=== PATIENT | female | born 1970 | race Caucasian/White ===

== ENCOUNTER 2016-04-05 02:17 | Emergency (ER) | payer OTHER ==
[~2016-04-05] VITALS: Ht 157.5 cm; Wt 119.1 kg
[~2016-04-05 02:17] MED LIST: ASPI81TA3 PO; BUTA1CAP39 PO; DOXE100C4 PO; DULO30CA PO; EPIN0.3P17 IJ; LAMO200T2 PO; LIDOCAINE CREAM TOP; LISI-567 PO; LORA10CA PO; MAGN400T4 PO; METF500T4 PO; METH-313 PO; ONDA8TAB7 PO; PANT40TA2 PO; PRAM1TAB5 PO; PREG100C PO; PROP160C2 PO; PROZASIN PO; SELE200T11 PO; SIMV20TA4 PO; ZONI100C6 PO
[2016-04-05 02:35] VITALS: BP 157/94; PULSE 79; RESP 22; O2SAT 99
--- NOTE | 2016-04-05 03:06 | ED.REPORT ---
HPI-Headache Date of Service Apr 05, 2016 ED Provider: Praneeth Last MD The patient is a 45 year old female with history of multiple ED visits for migraines who presents to the ED complaining of a migraine with nausea/vomiting for the last two days. She has taken ondansetron to little relief. She denies any other symptoms at this time. Nursing Notes Stated Complaint: SEVERE MIGRAIN,N,V Chief Complaint: Headache Nursing Notes Reviewed: Yes Allergies: Coded Allergies: Contrast Media (Verified Allergy, Unknown, 04/05/16) Sulfa (Sulfonamide Antibiotics) (Verified Allergy, Unknown, 04/05/16) dihydroergotamine mesylate (Verified Allergy, Unknown, 04/05/16) ether (Verified Allergy, Unknown, 04/05/16) iodine (Verified Allergy, Unknown, 04/05/16) morphine (Verified Allergy, Unknown, 04/05/16) prednisolone (Verified Allergy, Unknown, Causes Severe depression, 04/05/16) Scheduled ([prozasin]) 1 MG PO DAILY Aspirin Chew (Aspirin Chew) 81 Mg Chew 81 MG PO DAILY Doxepin (Doxepin) 100 Mg Capsule 50 MG PO BID Duloxetine (Cymbalta) 30 Mg Capsule.dr 90 MG PO DAILY Lamotrigine (Lamotrigine) 200 Mg Tablet 100 MG PO TID Lisinopril (Lisinopril) 20 Mg Tablet 20 MG PO DAILY Loratadine (Claritin) 10 Mg Capsule 10 MG PO DAILY Magnesium Oxide (Magnesium Oxide) 400 Mg Tablet 300 MG PO BID Metformin (Metformin) 500 Mg Tablet 500 MG PO BID WITH EVENING MEAL Methocarbamol (Robaxin-750) 750 Mg Tablet 750 MG PO TID Pantoprazole DR (Protonix) 40 Mg Tablet.dr 40 MG PO BID Pregabalin (Lyrica) 100 Mg Capsule 1 TAB PO TID Propranolol ER (Propranolol ER) 160 Mg Cap.sa.24h 160 MG PO BID Simvastatin (Simvastatin) 20 Mg Tablet 20 MG PO HS Zonisamide (Zonisamide) 100 Mg Capsule 50 MG PO DAILY Scheduled PRN ([Lidocaine Cream]) TOP PRN For Pain APPLY TO FEET Butalbital/Acetamin/Caff 50-300-40 mg (Fioricet 50-300-40 mg) 1 Each Capsule 1 CAPSULE PO Q4H PRN PRN Headache Epinephrine (Epinephrine) 0.3 Mg/0.3 Ml Auto.injct 0.3 MG IJ PRN For Anaphyllaxis Ondansetron ODT (Zofran ODT) 8 Mg Tablet 8 MG PO Q4H PRN PRN For Nausea Pramipexole Dihydrochloride (Pramipexole Dihydrochloride) 1 Mg Tablet 0.75 MG PO DAILY PRN PRN Restless leg Miscellaneous Medications Selenomethionine (Selenium) 200 Mcg Tablet 200 MCG PO General Time Seen by MD: 02:48 Chief Complaint Migraine headache Hx Obtained From: Patient Arrived By: Walk-in Sudden in Onset?: No Onset Occurred: Yesterday Symptom Duration: Since onset Location: : Generalized Severity: Current: Moderate Severity: Maximum: Moderate Recent Healthcare: No recent doctor visit, No recent hospitalization Similar Sx Previous: Yes Past Medical History Past Medical History Notes: Frequent ER visits for headache - Recent ED visits to [facility] for Migraine include 01/02, 01/09, 02/04, 02/18, 02/23, and 02/26, 03/07, 03/12, 03/16 and 03/20/2016 Dr. Meyers, Neurology [facility], Psychiatric prescriber Past Medical History GERD Chronic depression Chronic migraines opioid Dependency and withdrawal headaches asthma Fibromyalgia Neuropathy 85% deaf Blind in right eye Morbid Obesity Spinal stenosis Reports: Asthma, Diabetes mellitus, Gastritis, Hypertension, Peptic ulcer disease Reports: Obesity Past Surgical History Cholecystectomy Appendectomy Hysterectomy Laparoscopy Reports: Cholecystectomy Family History Reviewed, not relevant Smoking History Never Smoker Social History She reports recent graduation with Masters Counseling degree and successfully quite smoking. She has 4 grandchildren. Lives with son and his and their daughter Alcohol Use: Denies alcohol use Drug Use: Denies drug use Other Social History: Frequent ED visitor, , Local resident Occupation Student Ambulatory Status Independent Review of Systems Constitutional: Denies: Chills, Fever Eyes: Denies: Blurred bilateral, Diplopia GI: Reports: Nausea, Vomiting Neurologic: Reports: Headache, Denies: Change LOC, Lightheaded, Numbness, Seizure Complete sys rev & neg: except as marked. Physical Exam Initial Vital Signs Vital Signs (First) Date Time Temp Pulse Resp B/P Pulse Ox O2 Delivery O2 Flow Rate FiO2 04/05/16 02:35 36.5 79 22 157/94 99 Room Air Initial VS: Reviewed, Vital signs abnormal ENT: Mucous membranes moist, Conjunctiva normal, No scleral icterus Respiratory: Breath sounds normal, Clear to auscultation, No respiratory distress Cardiovascular: Regular rate & rhythm, Heart sounds normal, Intact distal pulses Abdomen / GI: Soft, Non-tender, No guarding, No rebound, No distention Back: No CVA tenderness Extremities: Vascular intact, Neuro intact, No swelling, No tenderness Skin: Warm, Dry, No cyanosis Psychiatric: Mood/affect normal, Behavior normal, Normal thought content General/Constitutional: Awake, Alert, No acute distress Head / Eyes: Atraumatic, Normocephalic, PERRL, EOMI Neck: Atraumatic, Supple, Full range of motion, No adenopathy Neurologic: Oriented X3, Speech NL, No motor deficits, No sensory deficits, CN II - XII intact Re-Eval/Medical Decision Med Decision/Clinical Course 45-year-old female with a typical recurrence of her migraine. She was given the usual migraine medication including normal saline, Toradol, ondansetron, Benadryl, Haldol, and dexamethasone with good relief of her headache. There are no bothersome findings on physical exam in no historical indication that an alternate more serious diagnosis may be happening. Source of Hx: Old records Re-Evaluation/Progress : Time of Eval: 05:09 Re-Evaluation/Progress Note: Rechecked the patient who reports that she is feeling better. Discussed plan for discharge. Follow-up instructions and RTER warnings given. The patient understands and agrees to the plan. All questions addressed. Counseled Regarding: Diagnosis, Need for follow-up, When/why to return to ED Discharge & Departure Impression: Primary Impression: Migraine headache Migraine type: without aura Status migrainosus presence: without status migrainosus Intractability: not intractable Qualified Code: G43.009 - Migraine without aura, not intractable, without status migrainosus Disposition: Home Discharge Condition All VS Reviewed: Yes Condition: Stable Patient Instructions: Migraine Headache (ED) Additional Instructions: You received IV saline hydration, IV ondansetron, IV Toradol, IV Benadryl, and IV Haldol. Home to sleep. Do not drive after this medication. Follow-up with your regular doctor as needed. Referrals: Philip Henriquez MD (PCP) Scribe Attestation Portions of this note were transcribed by Abhijit Escobedo. I, Dr. Last, personally performed the history, physical exam and medical decision-making; I reviewed and confirmed the accuracy of the information in the transcribed note. Signed by: Deloris Herrera, 04/05/16 05:10. copies to: Philip Henriquez MD, Howard L MD Apr 05, 2016 03:06 ABHIJIT ESCOBEDO Apr 05, 2016 03:15
[2016-04-05] MEDS ORDERED: 0.9% Sodium Chloride 1,000 ML IV ONE (03:13)
[2016-04-05] MEDS ORDERED: Haloperidol 5 mg/mL Inj IVPUSH ONE (03:15)
[2016-04-05] MEDS ORDERED: Ondansetron 2 mg/mL 2 mL Inj IVPUSH ONE (03:15)
[2016-04-05] MEDS ORDERED: Dexamethasone 10 mg/mL Inj IVPUSH ONE (03:15)
[2016-04-05] MEDS ORDERED: Ketorolac 15 mg/mL Inj IVPUSH ONE (03:15)
[2016-05-19] MEDS ORDERED: ZONI100C6 PO (16:02)
[2016-05-19] MEDS ORDERED: ALBU8.5H2 INHALATION (16:04)
[2016-05-19] MEDS ORDERED: RIZA5TAB34 PO (16:04)
[2016-05-19] MEDS ORDERED: IBUP-1827 PO (16:04)
[2016-05-19] MEDS ORDERED: CLON0.2T PO (16:04)
[2016-05-19] MEDS ORDERED: KETO60SY IM (16:04)
[2016-05-19] MEDS ORDERED: METH4TAB12 PO (16:05)
== END 2016-04-05 05:13 | disposition home or self-care (01) ==
LOC: SED 02:17
DX: G43.009 Migraine without aura, not intractable, without status migrainosus (principal); Z79.82 Long term (current) use of aspirin; K21.9 Gastro-esophageal reflux disease without esophagitis; J45.909 Unspecified asthma, uncomplicated; E11.9 Type 2 diabetes mellitus without complications; I10 Essential (primary) hypertension; Z88.2 Allergy status to sulfonamides; Z88.5 Allergy status to narcotic agent; Z88.8 Allergy status to other drugs, medicaments and biological substances
CPT/HCPCS: 96361; 96374; 96375; 99284; J1100; J1200; J1630; J1885; J2405; J7030

== ENCOUNTER 2016-04-14 05:44 | Emergency (ER) | payer OTHER ==
[~2016-04-14] VITALS: Ht 157.5 cm; Wt 119.1 kg
[2016-04-14 05:45] VITALS: BP 142/91; PULSE 78; RESP 16; O2SAT 98
--- NOTE | 2016-04-14 06:05 | ED.REPORT ---
HPI-Headache Date of Service Apr 14, 2016 ED Provider: Jono Minor MD 45 year old diabetic female with a history of migraines, opioid dependency and withdrawal headaches, HTN, and fibromyalgia presents to the ER complaining of migraine headache onset yesterday. She reports that it "feels as though her eyes are being gouged out". Associated symptoms include nausea, vomiting, photophobia, and insomnia secondary to symptoms. Symptoms are consistent with typical migraines. She has treated symptoms with butalbital, IM Toradol yesterday, Tylenol, ibuprofen, with no relief. Patient denies any recent trauma or infection. Other medications propranolol, lisinopril, simvastatin, metformin. She is followed by Dr. Hedrick, Neurology, for her migraines. Patient is well known to us here in the department. Nursing Notes Stated Complaint: MIGRAINE,NAUSEA,VOMITING Chief Complaint: Neuro Symptoms/ Deficits Nursing Notes Reviewed: Yes ([employer], meds not reconciled) Allergies: Coded Allergies: Contrast Media (Verified Allergy, Unknown, 04/05/16) Sulfa (Sulfonamide Antibiotics) (Verified Allergy, Unknown, 04/05/16) dihydroergotamine mesylate (Verified Allergy, Unknown, 04/05/16) ether (Verified Allergy, Unknown, 04/05/16) iodine (Verified Allergy, Unknown, 04/05/16) morphine (Verified Allergy, Unknown, 04/05/16) prednisolone (Verified Allergy, Unknown, Causes Severe depression, 04/05/16) Scheduled ([prozasin]) 1 MG PO DAILY Aspirin Chew (Aspirin Chew) 81 Mg Chew 81 MG PO DAILY Doxepin (Doxepin) 100 Mg Capsule 50 MG PO BID Duloxetine (Cymbalta) 30 Mg Capsule.dr 90 MG PO DAILY Lamotrigine (Lamotrigine) 200 Mg Tablet 100 MG PO TID Lisinopril (Lisinopril) 20 Mg Tablet 20 MG PO DAILY Loratadine (Claritin) 10 Mg Capsule 10 MG PO DAILY Magnesium Oxide (Magnesium Oxide) 400 Mg Tablet 300 MG PO BID Metformin (Metformin) 500 Mg Tablet 500 MG PO BID WITH EVENING MEAL Methocarbamol (Robaxin-750) 750 Mg Tablet 750 MG PO TID Pantoprazole DR (Protonix) 40 Mg Tablet.dr 40 MG PO BID Pregabalin (Lyrica) 100 Mg Capsule 1 TAB PO TID Propranolol ER (Propranolol ER) 160 Mg Cap.sa.24h 160 MG PO BID Simvastatin (Simvastatin) 20 Mg Tablet 20 MG PO HS Zonisamide (Zonisamide) 100 Mg Capsule 50 MG PO DAILY Scheduled PRN ([Lidocaine Cream]) TOP PRN For Pain APPLY TO FEET Butalbital/Acetamin/Caff 50-300-40 mg (Fioricet 50-300-40 mg) 1 Each Capsule 1 CAPSULE PO Q4H PRN PRN Headache Epinephrine (Epinephrine) 0.3 Mg/0.3 Ml Auto.injct 0.3 MG IJ PRN For Anaphyllaxis Ondansetron ODT (Zofran ODT) 8 Mg Tablet 8 MG PO Q4H PRN PRN For Nausea Pramipexole Dihydrochloride (Pramipexole Dihydrochloride) 1 Mg Tablet 0.75 MG PO DAILY PRN PRN Restless leg Miscellaneous Medications Selenomethionine (Selenium) 200 Mcg Tablet 200 MCG PO General Time Seen by MD: 05:56 Chief Complaint Migraine headache Hx Obtained From: Patient Arrived By: Walk-in Sudden in Onset?: No Onset Occurred: Yesterday Symptom Duration: Since onset Location: : Frontal bilateral Quality: Painful Severity: Current: Moderate Severity: Maximum: Moderate Associated with: Reports: Nausea, Photophobia, Vomiting Related History: Reports: Headache, migraine hx Recent Healthcare: Recent doctor visit Similar Sx Previous: Yes Past Medical History Past Medical History Notes: Frequent ER visits for headache - Recent ED visits to [facility] for Migraine include 01/02, 01/09, 02/04, 02/18, 02/23, and 02/26, 03/07, 03/12, 03/16 and 03/20/2016, 03/25/16, 04/05/16, 04/14/16 Dr. Hedrick, Neurology [facility], Psychiatric prescriber Past Medical History GERD Chronic depression Chronic migraines opioid Dependency and withdrawal headaches asthma Fibromyalgia Neuropathy 85% deaf Blind in right eye Morbid Obesity Spinal stenosis Reports: Asthma, Diabetes mellitus, Gastritis, Hypertension, Peptic ulcer disease Reports: Obesity Past Surgical History Cholecystectomy Appendectomy Hysterectomy Laparoscopy Reports: Cholecystectomy Family History Reviewed, not relevant Smoking History Never Smoker Social History She reports recent graduation with Masters Counseling degree and successfully quite smoking. She has 4 grandchildren. Lives with son and his and their daughter Alcohol Use: Denies alcohol use Drug Use: Denies drug use Other Social History: Frequent ED visitor, , Local resident Occupation Student Ambulatory Status Independent Review of Systems Constitutional: Denies: Chills, Fever Eyes: Reports: Photophobia GI: Reports: Nausea, Vomiting, Denies: Abdominal pain Musculoskeletal: Denies: Back pain, Extremity pain, Lumbar pain, Neck pain Neurologic: Reports: Headache, Denies: Change LOC, Numbness, Syncope Complete sys rev & neg: except as marked. Physical Exam Initial Vital Signs Vital Signs (First) Date Time Temp Pulse Resp B/P Pulse Ox O2 Delivery O2 Flow Rate FiO2 04/14/16 05:45 36.7 78 16 142/91 98 Room Air Initial VS: Reviewed, Vital signs normal ENT: Mucous membranes moist, Conjunctiva normal, No scleral icterus Respiratory: Breath sounds normal, Clear to auscultation, No respiratory distress Cardiovascular: Regular rate & rhythm, Heart sounds normal, Intact distal pulses Abdomen / GI: Soft, Non-tender, No guarding, No rebound, No distention Extremities: Vascular intact, Neuro intact, No swelling, No tenderness Skin: Warm, Dry, No cyanosis General/Constitutional: Awake, Alert, Well developed Fatigued. Head / Eyes: Atraumatic, Normocephalic Sitting in darkened room. Neck: Supple, No meningismus, Full range of motion, No swelling, Non-tender, No masses Neurologic: Oriented X3, Speech NL, No motor deficits, No sensory deficits, CN II - XII intact, Cerebellar NL Interpretation & Diagnostics Lab Results Interpretation Test 04/14/16 06:15 Hold Purple Top Tube Received (Received) Hold Blue Top Tube Received (Received) Hold Bancroft Top Tube Received (Received) Re-Eval/Medical Decision Med Decision/Clinical Course This is a 45-year-old female with chronic, recurrent migraines followed by Dr. hedrick who has a history of a multitude of ED visits who presents complaining of her "usual migraine". She reports no atypical features, she is seen struck in recent weeks and underwent a Botox injection but indicates that sometimes take several weeks for that to start improving her symptoms. A home Toradol yesterday, butalbital, but remains symptomatic. She reports there are no atypical features, no recent trauma, no recent fevers or infections, no rash, no new neurologic symptoms. On exam she is obese, but in no extremist. She has no acute neurologic findings. Overall she has no red flags indicated altered process or need for acute neuro imaging, laboratory testing, or lumbar puncture. The patient was treated with her migraine cocktail of Toradol, Benadryl, Haldol , ondansetron, and IV fluids-with improvement and resolution, and the patient was discharged in good condition Source of Hx: Old records Differential Diagnosis: Positive: Headache, Headache, migraine, Negative: Carbon monoxide toxicity, Carotid artery dissection, Headache, post LP, Hemorrhage, cerebellar, Hemorrhage, epidural, Hemorrhage, intracerebral , Hemorrhage, subarachnoid, Hemorrhage, subdural, Intracranial abscess, Meningitis, Preeclampsia Counseled Regarding: Diagnosis, Lab results, Need for follow-up, When/why to return to ED Discharge & Departure Impression: Primary Impression: Migraine headache Migraine type: unspecified Status migrainosus presence: without status migrainosus Intractability: not intractable Qualified Code: G43.909 - Migraine, unspecified, not intractable, without status migrainosus Disposition: Home Discharge Condition All VS Reviewed: Yes Condition: Stable Patient Instructions: Migraine Headache (DC) Additional Instructions: 1. Rest 2. Continue your regular medications 3. Follow up with Dr. Hedrick Referrals: Philip Henriquez MD (PCP) Scribe Attestation Portions of this note were transcribed by Hugo Maurice. I, Dr. Minor, personally performed the history, physical exam and medical decision-making; I reviewed and confirmed the accuracy of the information in the transcribed note. Signed by: Deloris Velez. 04/14/2016, 09:20 copies to: Philip Henriquez MD, Matthew F MD Apr 14, 2016 06:04 HUGO MAURICE Apr 14, 2016 06:15
[2016-04-14] MEDS ORDERED: Ondansetron 2 mg/mL 2 mL Inj IVPUSH ONE (06:15)
[2016-04-14] MEDS ORDERED: 0.9% Sodium Chloride 500 ML IV ONE (06:15)
[2016-04-14] MEDS ORDERED: Haloperidol 5 mg/mL Inj IVPUSH ONE (06:15)
[2016-04-14] MEDS ORDERED: Dexamethasone Inj 10 MG in 0.9% Sodium Chloride-Pha MIX 50 ML IV ONE (06:15)
[2016-04-14 09:00] VITALS: BP 149/79; PULSE 74; RESP 16; O2SAT 97
[2016-05-19] MEDS ORDERED: ZONI100C6 PO (16:02)
[2016-05-19] MEDS ORDERED: ALBU8.5H2 INHALATION (16:04)
[2016-05-19] MEDS ORDERED: CLON0.2T PO (16:04)
[2016-05-19] MEDS ORDERED: IBUP-1827 PO (16:04)
[2016-05-19] MEDS ORDERED: RIZA5TAB34 PO (16:04)
[2016-05-19] MEDS ORDERED: KETO60SY IM (16:04)
[2016-05-19] MEDS ORDERED: METH4TAB12 PO (16:05)
== END 2016-04-14 08:53 | disposition home or self-care (01) ==
LOC: SED 05:44
DX: G43.709 Chronic migraine without aura, not intractable, without status migrainosus (principal); F11.23 Opioid dependence with withdrawal; I10 Essential (primary) hypertension; M79.7 Fibromyalgia; K21.9 Gastro-esophageal reflux disease without esophagitis; J45.909 Unspecified asthma, uncomplicated; H91.90 Unspecified hearing loss, unspecified ear; H54.41 Blindness, right eye, normal vision left eye; E66.01 Morbid (severe) obesity due to excess calories; E11.9 Type 2 diabetes mellitus without complications; Z68.42 Body mass index [BMI] 45.0-49.9, adult; Z87.11 Personal history of peptic ulcer disease; Z87.19 Personal history of other diseases of the digestive system; Z79.82 Long term (current) use of aspirin; Z79.84 Long term (current) use of oral hypoglycemic drugs; Z91.041 Radiographic dye allergy status; Z88.2 Allergy status to sulfonamides; Z88.8 Allergy status to other drugs, medicaments and biological substances; Z88.5 Allergy status to narcotic agent
CPT/HCPCS: 96361; 96374; 96375; 99284; G0463; J1100; J1200; J1630; J2405; J7040

== ENCOUNTER 2016-04-27 00:36 | Emergency (ER) | payer OTHER ==
[~2016-04-27] VITALS: Ht 157.5 cm; Wt 122.7 kg
[2016-04-27 00:56] VITALS: BP 151/104; PULSE 87; RESP 16; O2SAT 97
--- NOTE | 2016-04-27 01:11 | ED.REPORT ---
HPI-General Illness Date of Service Apr 27, 2016 ED Provider: Logan Beck MD Patient is a 45 year old female with a history of migraine headaches who is well known to the ED presents complaining of a severe migraine headache that began 2 days ago. She reports associated nausea and vomiting. She has used all of her migraine medications to the maximum doses. Patient states that her current headache is the same in character as her usual migraines. Patient also currently has an upper respiratory infection, with a cough and wheezing. Patient used a nebulizer treatment at home. Nursing Notes Stated Complaint: MIGRAINE,NAUSEA, AND VOMITING Chief Complaint: General Complaint Nursing Notes Reviewed: Yes Allergies: Coded Allergies: Contrast Media (Verified Allergy, Unknown, 04/27/16) Sulfa (Sulfonamide Antibiotics) (Verified Allergy, Unknown, 04/27/16) dihydroergotamine mesylate (Verified Allergy, Unknown, 04/27/16) ether (Verified Allergy, Unknown, 04/27/16) iodine (Verified Allergy, Unknown, 04/27/16) morphine (Verified Allergy, Unknown, 04/27/16) prednisolone (Verified Allergy, Unknown, Causes Severe depression, 04/27/16 ) Scheduled ([prozasin]) 1 MG PO DAILY Aspirin Chew (Aspirin Chew) 81 Mg Chew 81 MG PO DAILY Doxepin (Doxepin) 100 Mg Capsule 50 MG PO BID Duloxetine (Cymbalta) 30 Mg Capsule.dr 90 MG PO DAILY Lamotrigine (Lamotrigine) 200 Mg Tablet 100 MG PO TID Lisinopril (Lisinopril) 20 Mg Tablet 20 MG PO DAILY Loratadine (Claritin) 10 Mg Capsule 10 MG PO DAILY Magnesium Oxide (Magnesium Oxide) 400 Mg Tablet 300 MG PO BID Metformin (Metformin) 500 Mg Tablet 500 MG PO BID WITH EVENING MEAL Methocarbamol (Robaxin-750) 750 Mg Tablet 750 MG PO TID Pantoprazole DR (Protonix) 40 Mg Tablet.dr 40 MG PO BID Pregabalin (Lyrica) 100 Mg Capsule 1 TAB PO TID Propranolol ER (Propranolol ER) 160 Mg Cap.sa.24h 160 MG PO BID Simvastatin (Simvastatin) 20 Mg Tablet 20 MG PO HS Zonisamide (Zonisamide) 100 Mg Capsule 50 MG PO DAILY Scheduled PRN ([Lidocaine Cream]) TOP PRN For Pain APPLY TO FEET Butalbital/Acetamin/Caff 50-300-40 mg (Fioricet 50-300-40 mg) 1 Each Capsule 1 CAPSULE PO Q4H PRN PRN Headache Epinephrine (Epinephrine) 0.3 Mg/0.3 Ml Auto.injct 0.3 MG IJ PRN For Anaphyllaxis Ondansetron ODT (Zofran ODT) 8 Mg Tablet 8 MG PO Q4H PRN PRN For Nausea Pramipexole Dihydrochloride (Pramipexole Dihydrochloride) 1 Mg Tablet 0.75 MG PO DAILY PRN PRN Restless leg Miscellaneous Medications Selenomethionine (Selenium) 200 Mcg Tablet 200 MCG PO General Time Seen by MD: 01:10 Chief Complaint Headache Hx Obtained From: Patient Arrived By: Walk-in Sudden in Onset?: No Onset Occurred: 2 days ago Symptom Duration: Since onset Location: : Head Quality: Painful Severity: Current: Severe Severity: Maximum: Severe Recent Healthcare: No recent doctor visit, No recent hospitalization Similar Sx Previous: Yes Past Medical History Past Medical History Notes: Frequent ER visits for headache - Recent ED visits to [facility] for Migraine include 01/02, 01/09, 02/04, 02/18, 02/23, and 02/26, 03/07, 03/12, 03/16 and 03/20/2016, 03/25/16, 04/05/16, 04/14/16 Dr. Meyers, Neurology [facility] Psychiatric prescriber Past Medical History GERD Chronic depression Chronic migraines opioid Dependency and withdrawal headaches asthma Fibromyalgia Neuropathy 85% deaf Blind in right eye Morbid Obesity Spinal stenosis Reports: Asthma, Diabetes mellitus, Gastritis, Hypertension, Peptic ulcer disease Reports: Obesity Past Surgical History Cholecystectomy Appendectomy Hysterectomy Laparoscopy Reports: Cholecystectomy Family History Reviewed, not relevant Smoking History Never Smoker Social History She reports recent graduation with Masters Counseling degree and successfully quit smoking. She has 4 grandchildren. Lives with son and his and their daughter Alcohol Use: Denies alcohol use Drug Use: Denies drug use Other Social History: Frequent ED visitor, , Local resident Occupation Student Ambulatory Status Independent Review of Systems Full Review of Systems Respiratory: Reports: Non-productive cough, Wheezing GI: Reports: Nausea, Vomiting Neurologic: Reports: Headache Complete sys rev & neg: except as marked. Physical Exam Vital Signs Vital Signs Date Time Temp Pulse Resp B/P Pulse Ox O2 Delivery O2 Flow Rate FiO2 1/30/17 05:07 36.6 84 18 133/86 96 Room Air 04/27/16 04:43 36.6 84 18 133/86 96 Room Air 04/27/16 00:56 36.8 87 16 151/104 97 Room Air Initial VS: Reviewed Head / Eyes: Atraumatic, Normocephalic, PERRL ENT: Conjunctiva normal, No scleral icterus Neck: Supple, Full range of motion Extremities: Vascular intact, Neuro intact Skin: Warm, Dry, No cyanosis Neurologic: Alert, Oriented, Nonfocal Psychiatric: Mood/affect normal, Behavior normal, Normal thought content General/Constitutional: Awake, Alert, No acute distress Appearance / Presentation: Positive: Obese Respiratory / Chest: No respiratory distress, No stridor Cardiovascular: Heart rate NL, Regular rhythm Re-Eval/Medical Decision Med Decision/Clinical Course 45-year-old with chronic recurrent migraine syndrome returns with similar symptoms. Home after treatment with migraine cocktail here. Likely precipitant is upper respiratory infection which is slowly resolving. Discharged in stable condition Source of Hx: Old records Time of Eval: 04:43 Patient Status: Condition improved Re-Evaluation/Progress Note: Patient is asleep in the ED. She reports that her headache is improved. Patient understands and agrees with the plan to be discharged home. Discharge instructions and follow-up discussed. All questions were addressed. Return to the ED warnings given. Counseled Regarding: Diagnosis, Need for follow-up, When/why to return to ED Discharge & Departure Primary Impression: Migraine headache Migraine type: unspecified Status migrainosus presence: without status migrainosus Intractability: not intractable Qualified Code: G43.909 - Migraine, unspecified, not intractable, without status migrainosus Additional Impression: Upper respiratory infection Disposition: Home Discharge Condition All VS Reviewed: Yes Condition: Stable Patient Instructions: Migraine Headache (ED) Additional Instructions: Follow-up with your doctor in the office. Referrals: Philip Henriquez MD (PCP) Deloris Attestation Portions of this note were transcribed by Carmen Lewis. I, Dr. Beck personally performed the history, physical exam and medical decision-making; I reviewed and confirmed the accuracy of the information in the transcribed note. Signed by: Deloris Mcdaniel, 04/26/2016 0508 copies to: Philip Henriquez MD, Christopher W MD Apr 27, 2016 01:11 Carmen Lewis Apr 27, 2016 01:17
[2016-04-27] MEDS ORDERED: 0.9% Sodium Chloride 1,000 ML IV ONE (01:28)
[2016-04-27] MEDS ORDERED: Ondansetron 2 mg/mL 2 mL Inj IVPUSH ONE (01:30)
[2016-04-27] MEDS ORDERED: Haloperidol 5 mg/mL Inj IVPUSH ONE (01:30)
[2016-04-27 04:43] VITALS: BP 133/86; PULSE 84; RESP 18; O2SAT 96
[2016-04-27 05:07] VITALS: BP 133/86; PULSE 84; RESP 18; O2SAT 96
[2016-05-19] MEDS ORDERED: ZONI100C6 PO (16:02)
[2016-05-19] MEDS ORDERED: IBUP-1827 PO (16:04)
[2016-05-19] MEDS ORDERED: RIZA5TAB34 PO (16:04)
[2016-05-19] MEDS ORDERED: CLON0.2T PO (16:04)
[2016-05-19] MEDS ORDERED: KETO60SY IM (16:04)
[2016-05-19] MEDS ORDERED: ALBU8.5H2 INHALATION (16:04)
[2016-05-19] MEDS ORDERED: METH4TAB12 PO (16:05)
== END 2016-04-27 05:16 | disposition home or self-care (01) ==
LOC: SED 00:36
DX: G43.909 Migraine, unspecified, not intractable, without status migrainosus (principal); J06.9 Acute upper respiratory infection, unspecified; K21.9 Gastro-esophageal reflux disease without esophagitis; I10 Essential (primary) hypertension; E11.9 Type 2 diabetes mellitus without complications; Z90.49 Acquired absence of other specified parts of digestive tract; Z90.710 Acquired absence of both cervix and uterus; Z79.82 Long term (current) use of aspirin; Z79.84 Long term (current) use of oral hypoglycemic drugs; Z88.2 Allergy status to sulfonamides; Z88.5 Allergy status to narcotic agent; Z88.8 Allergy status to other drugs, medicaments and biological substances; Z91.041 Radiographic dye allergy status
CPT/HCPCS: 96361; 96374; 96375; 99284; J1200; J1630; J2405; J7030

== ENCOUNTER 2016-05-14 23:40 | Emergency (ER) | payer OTHER ==
[~2016-05-14] VITALS: Ht 157.5 cm; Wt 119.1 kg
[2016-05-14 23:41] VITALS: BP 133/82; PULSE 77; RESP 16; O2SAT 99
--- NOTE | 2016-05-14 23:51 | ED.REPORT ---
HPI-General Illness Date of Service May 14, 2016 ED Provider: Dr. Beck 45 year old female patient with a history of migraines and frequent ED visits presents to ED complaining of a toothache and migraine, as well as mild sinus congestion. The patient has been trying to get an appointment at [facility] to address the toothache but as thus far been unsuccessful. She reports that she has not been a smoker since July 2014. Nursing Notes Stated Complaint: MIGRAINE,NAUSEA/VOMITING/TOOTHACHE Chief Complaint: General Complaint Nursing Notes Reviewed: Yes Allergies: Coded Allergies: Contrast Media (Verified Allergy, Unknown, 05/14/16) Sulfa (Sulfonamide Antibiotics) (Verified Allergy, Unknown, 05/14/16) dihydroergotamine mesylate (Verified Allergy, Unknown, 05/14/16) ether (Verified Allergy, Unknown, 05/14/16) iodine (Verified Allergy, Unknown, 05/14/16) morphine (Verified Allergy, Unknown, 05/14/16) prednisolone (Verified Allergy, Unknown, Causes Severe depression, 05/14/16 ) Scheduled ([prozasin]) 1 MG PO DAILY Aspirin Chew (Aspirin Chew) 81 Mg Chew 81 MG PO DAILY Doxepin (Doxepin) 100 Mg Capsule 50 MG PO BID Duloxetine (Cymbalta) 30 Mg Capsule.dr 90 MG PO DAILY Lamotrigine (Lamotrigine) 200 Mg Tablet 100 MG PO TID Lisinopril (Lisinopril) 20 Mg Tablet 20 MG PO DAILY Loratadine (Claritin) 10 Mg Capsule 10 MG PO DAILY Magnesium Oxide (Magnesium Oxide) 400 Mg Tablet 300 MG PO BID Metformin (Metformin) 500 Mg Tablet 500 MG PO BID WITH EVENING MEAL Methocarbamol (Robaxin-750) 750 Mg Tablet 750 MG PO TID Pantoprazole DR (Protonix) 40 Mg Tablet.dr 40 MG PO BID Pregabalin (Lyrica) 100 Mg Capsule 1 TAB PO TID Propranolol ER (Propranolol ER) 160 Mg Cap.sa.24h 160 MG PO BID Simvastatin (Simvastatin) 20 Mg Tablet 20 MG PO HS Zonisamide (Zonisamide) 100 Mg Capsule 50 MG PO DAILY Scheduled PRN ([Lidocaine Cream]) TOP PRN For Pain APPLY TO FEET Butalbital/Acetamin/Caff 50-300-40 mg (Fioricet 50-300-40 mg) 1 Each Capsule 1 CAPSULE PO Q4H PRN PRN Headache Epinephrine (Epinephrine) 0.3 Mg/0.3 Ml Auto.injct 0.3 MG IJ PRN For Anaphyllaxis Ondansetron ODT (Zofran ODT) 8 Mg Tablet 8 MG PO Q4H PRN PRN For Nausea Pramipexole Dihydrochloride (Pramipexole Dihydrochloride) 1 Mg Tablet 0.75 MG PO DAILY PRN PRN Restless leg Miscellaneous Medications Selenomethionine (Selenium) 200 Mcg Tablet 200 MCG PO General Time Seen by MD: 23:50 Chief Complaint Other (Toothache) Hx Obtained From: Patient Arrived By: Walk-in Sudden in Onset?: No Symptom Duration: Since onset Recent Healthcare: Recent doctor visit, Recent hospitalization Similar Sx Previous: Yes Past Medical History Past Medical History Notes: Frequent ER visits for headache Dr. Meyers, Neurology [facility], Psychiatric prescriber Past Medical History GERD Chronic depression Chronic migraines opioid Dependency and withdrawal headaches asthma Fibromyalgia Neuropathy 85% deaf Blind in right eye Morbid Obesity Spinal stenosis Reports: Asthma, Diabetes mellitus, Gastritis, Hypertension, Peptic ulcer disease Reports: Obesity Past Surgical History Cholecystectomy Appendectomy Hysterectomy Laparoscopy Reports: Cholecystectomy Family History Reviewed, not relevant Smoking History Never Smoker Social History She reports recent graduation with Masters Counseling degree and successfully quit smoking. She has 4 grandchildren. Lives with son and his and their daughter Alcohol Use: Denies alcohol use Drug Use: Denies drug use Other Social History: Frequent ED visitor, , Local resident Occupation Student Ambulatory Status Independent Review of Systems Full Review of Systems Ears / Nose / Throat: Reports: Nasal congestion, Toothache Neurologic: Reports: Headache Complete sys rev & neg: except as marked. Physical Exam Vital Signs Vital Signs Date Time Temp Pulse Resp B/P Pulse Ox O2 Delivery O2 Flow Rate FiO2 05/15/16 02:54 74 24 101/60 99 Room Air 05/14/16 23:41 36.2 77 16 133/82 99 Room Air Initial VS: Reviewed General/Constitutional: Awake, Alert Appearance / Presentation: Positive: Obese Head / Eyes: Atraumatic, Normocephalic, PERRL, EOMI ENT: Atraumatic, Airway patent, Mucous membranes moist Missing multiple teeth. Tooth 27 is fractured down to root, sheared down to gum. Miseal and distal edges and entry buccal part of tooth all gone. Point in lingual side left over. Neck: Atraumatic, Full range of motion Respiratory / Chest: Atraumatic, Breath sounds NL, Breath sounds = bilat, No respiratory distress, No rales, No rhonchi, No wheezing Cardiovascular: Heart rate NL, Regular rhythm, Heart sounds NL, No gallop, No murmurs, No rubs Abdomen: Atraumatic, No guarding, No rebound Upper Extremities Upper Extremity / MS: Atraumatic, Full range of motion Lower Extremity / Pelvis / MS: Atraumatic, Full range of motion Skin: Warm, Dry Neurologic: Oriented X3, Speech NL Psychiatric: Mood NL Abnormal Mood/Affect: Positive: Flat affect Interpretation & Diagnostics Lab Results Interpretation Test 05/15/16 00:15 Hold Purple Top Tube Received (Received) Hold Blue Top Tube Received (Received) Hold [place] Top Tube Received (Received) Hold Vyas Top Tube Received (Received) Re-Eval/Medical Decision Med Decision/Clinical Course 45-year-old with chronic recurrent migraine presents again with similar symptoms. Trigger appears to be a fractured tooth. Plans to seek dental care at [place]. Improved here after standard cocktail plus Keppra IV. Source of Hx: Old records Time of Eval: 23:50 Re-Evaluation/Progress Note: Pt informed of diagnosis and plan for discharge during the intial interview. The pt understands and agrees with the plan. All questions are addressed at this time. Counseled Regarding: Diagnosis, Need for follow-up, When/why to return to ED Discharge & Departure Primary Impression: Migraine Additional Impressions: Dental abscess Tooth fracture Disposition: Home Discharge Condition All VS Reviewed: Yes Condition: Stable Patient Instructions: Migraine Headache (ED) Continue your current medications. Follow-up with your doctor in the office. Return for any immediate issues. Referrals: Philip Henriquez MD (PCP) Scribe Attestation Portions of this note were transcribed by Randy Jon and Betty Rios . I, Dr. Beck personally performed the history, physical exam and medical decision -making; I reviewed and confirmed the accuracy of the information in the transcribed note. Signed by:Randy Jon and Deloris Londono, 05/15/2016 and 03:16. copies to: Philip Henriquez MD, Christopher W MD May 14, 2016 23:51 Randy Jon May 15, 2016 00:02 BETTY RIOS May 15, 2016 03:17
[2016-05-15] MEDS ORDERED: 0.9% Sodium Chloride 1,000 ML IV ONE (00:01)
[2016-05-15] MEDS ORDERED: Haloperidol 5 mg/mL Inj IVPUSH ONE (00:05)
[2016-05-15] MEDS ORDERED: Ondansetron 2 mg/mL 2 mL Inj IVPUSH ONE (00:05)
[2016-05-15] MEDS ORDERED: levETIRAcetam Inj 1,000 MG in IV Premix 1 EACH IV ONE (01:45)
[2016-05-15] MEDS ORDERED: MetoCLOpramide 5 mg/mL 2 mL Inj IVPUSH ONE (01:45)
[2016-05-15 02:54] VITALS: BP 101/60; PULSE 74; RESP 24; O2SAT 99
[2016-05-19] MEDS ORDERED: ZONI100C6 PO (16:02)
[2016-05-19] MEDS ORDERED: KETO60SY IM (16:04)
[2016-05-19] MEDS ORDERED: CLON0.2T PO (16:04)
[2016-05-19] MEDS ORDERED: ALBU8.5H2 INHALATION (16:04)
[2016-05-19] MEDS ORDERED: IBUP-1827 PO (16:04)
[2016-05-19] MEDS ORDERED: RIZA5TAB34 PO (16:04)
[2016-05-19] MEDS ORDERED: METH4TAB12 PO (16:05)
== END 2016-05-15 02:56 | disposition home or self-care (01) ==
LOC: SED 23:40
DX: G43.709 Chronic migraine without aura, not intractable, without status migrainosus (principal); K04.7 Periapical abscess without sinus; S02.5XXA Fracture of tooth (traumatic), initial encounter for closed fracture; X58.XXXA Exposure to other specified factors, initial encounter; Y92.9 Unspecified place or not applicable; Y93.9 Activity, unspecified; Y99.9 Unspecified external cause status; J45.909 Unspecified asthma, uncomplicated; E11.9 Type 2 diabetes mellitus without complications; K29.70 Gastritis, unspecified, without bleeding; I10 Essential (primary) hypertension; E66.01 Morbid (severe) obesity due to excess calories; K21.9 Gastro-esophageal reflux disease without esophagitis; H91.90 Unspecified hearing loss, unspecified ear; H54.41 Blindness, right eye, normal vision left eye; Z87.11 Personal history of peptic ulcer disease; Z68.42 Body mass index [BMI] 45.0-49.9, adult; Z79.82 Long term (current) use of aspirin; Z79.84 Long term (current) use of oral hypoglycemic drugs; Z91.041 Radiographic dye allergy status; Z88.2 Allergy status to sulfonamides; Z88.5 Allergy status to narcotic agent; Z88.8 Allergy status to other drugs, medicaments and biological substances
CPT/HCPCS: 96374; 96375; 96376; 99284; J1200; J1630; J1953; J2405; J2765; J7030

== ENCOUNTER 2016-05-21 08:12 | Day surgery (SDC) | payer OTHER ==
[~2016-05-21] VITALS: Ht 157.5 cm; Wt 118.6 kg
--- NOTE | 2016-05-21 07:26 | PCM.HPANE ---
Patient Data Surgeon Admitting Provider: Attending Provider:Judson Aguirre MD Primary Care Physician:Philip Henriquez MD Other Provider:TrentocBarnard Anesthesia Reason for Visit Altered Bowel Habits, Gerd Ht/WT & BMI Body Mass Index Allergies Coded Allergies: Contrast Media (Verified Allergy, Unknown, 05/21/16) Sulfa (Sulfonamide Antibiotics) (Verified Allergy, Unknown, 05/21/16) cephalexin (Verified Allergy, Unknown, 05/21/16) ciprofloxacin (Verified Allergy, Unknown, 05/21/16) dihydroergotamine mesylate (Verified Allergy, Unknown, 05/21/16) ether (Verified Allergy, Unknown, 05/21/16) iodine (Verified Allergy, Unknown, 05/21/16) morphine (Verified Allergy, Unknown, 05/21/16) prednisolone (Verified Allergy, Unknown, Causes Severe depression, 05/21/16 ) sumatriptan (Verified Allergy, Unknown, 05/21/16) Past Anesthesia History Anesthesia History: Positive for:: Anesthesia Reactions (allergic reaction to ether ), Denies:: Abnormal Airway, Difficult Intubation, Fam Anesthesia Reaction, Fam Malignant Hypertherm, Malignant Hyperthermia Diabetes History Hx Diabetes?: Yes MRSA MRSA: Yes (BREAST WOUND 2008) Medications Active Scripts Butalbital/Acetamin/Caff 50-300-40 mg (Fioricet 50-300-40 mg)1 Each Capsule1 Capsule PO Q4H PRN Headache #8 CAPSULE Ref 0 Prov:Vivienne Trotter Randa CRAWFORD 11/29/15 Reported Medications Ketorolac Tromethamine 60 Mg/2 Ml Gwowruq76 Mg IM DAILY PRN For Pain 05/19/16 Clonidine 0.2 Mg Tablet0.4 Mg PO BID Ref 0 05/19/16 Albuterol HFA (Proair HFA)8.5 Gm Hfa.aer.ad2 Puffs INHALATION Q4H PRN For Shortness of Breath #1 INHALER 05/19/16 Zonisamide 100 Mg Kzvwjuv159 Mg PO HS 05/19/16 Lisinopril 20 Mg Nxqcvy96 Mg PO DAILY 03/12/16 Propranolol ER 160 Mg Cap.sa.16j503 Mg PO BID 04/16/15 Duloxetine (Cymbalta)30 Mg Capsule.dr60 Mg PO DAILY Ref 0 04/16/15 Aspirin Chew 81 Mg Chew81 Mg PO DAILY Ref 0 04/16/15 Simvastatin 20 Mg Pzenxj48 Mg PO HS Ref 0 04/16/15 Loratadine (Claritin)10 Mg Nelioba98 Mg PO DAILY Ref 0 04/16/15 Ondansetron ODT (Zofran ODT)8 Mg Tablet8 Mg PO Q4H PRN For Nausea 04/16/15 Pregabalin (Lyrica)100 Mg Capsule1 Tab PO TID 30 Days Ref 0 09/08/[address] (Protonix)40 Mg Tablet.dr40 Mg PO DAILY 30 Days Ref 0 05/20/14 Lamotrigine 200 Mg Ozgpio872 Mg PO BID #30 TABLET Ref 0 05/20/14 Pramipexole Dihydrochloride 1 Mg Tablet0.75 Mg PO DAILY PRN Restless leg 11/21/13 Metformin 500 Mg Tablet2,000 Mg PO BID 30 Days Ref 0 WITH EVENING MEAL 08/27/13 Doxepin 100 Mg Zhgmdvm72 Mg PO BID 08/27/13 Epinephrine 0.3 Mg/0.3 Ml Auto.injct0.3 Mg IJ PRN For Anaphyllaxis 08/27/13 Methocarbamol (Robaxin-750)750 Mg Tablet1,500 Mg PO [id number] 08/14/13 Discontinued Reported Medications Methylprednisolone (MethylprednisoLONE)4 Mg Tablet4 Mg PO DIRECTED PRN Headache Ref 0 05/19/16 Rizatriptan (Maxalt)5 Mg Tablet5 Mg PO DAILY PRN Headache 05/19/16 Ibuprofen 600 Mg Wweyzk604 Mg PO QID PRN For Pain Ref 0 05/19/16 Zonisamide 100 Mg Qmhxwdc38 Mg PO DAILY 02/28/14 [Lidocaine Cream] No Conflict Check TOP PRN For Pain APPLY TO FEET 08/27/13 [prozasin] No Conflict Check1 Mg PO DAILY PTSD 09/18/14 Selenomethionine (Selenium)200 Mcg Rkgahf482 Mcg PO 05/20/14 Magnesium Oxide 400 Mg Uhvsir319 Mg PO BID 11/21/13 History History of ENT Problems?: Yes HEENT History: Positive for:: Cataracts Hearing Problem (85% HEARING LOSS) Sinus Problem (Sinus surgery) Denies:: Abnormal Airway Difficult Intubation Dysphagia Hx of Heart Problems?: No Cardiovascular History: Positive for:: Hypertension Denies:: AICD Atrial Fibrillation Cardiac Surgery Chest Pain Congestive Heart Failure Edema Heart Murmur Irregular Heartbeat Pacemaker Thrombophlebitis Valvular Heart Disease Hx of Respiratory Problem?: Yes Respiratory History: Positive for:: Asthma (pt reports improvement s/p smoking cessation 2015) Dyspnea (hx) Pneumonia Denies:: COPD Chest Surgery Cough Emphysema Hemoptysis Tuberculosis Hx Neurologic Problems?: Yes Neurological History: Positive for:: Dizziness Headaches (Chronic Migraines) Denies:: Alzheimer's Disease CVA Dementia Parkinson's Disease Seizures Hx of GI Problems?: Yes Gastrointestinal History: Positive for:: Gastroesphageal Reflux Heartburn Rectal Bleeding Denies:: Cirrhosis Diverticulitis Hepatitis Hiatal Hernia Hx of Problems?: Yes Genitourinary History: Positive for:: Kidney Stones Urinary Tract Infection Denies:: HX of Hemodialysis HX of Peritoneal Dialysis: No Female Hx: Positive for:: Problems with Breasts? (Lumpectomy left breast. ) Denies:: Currently (hysterectomy) Hx Musculoskeletal Problems?: Yes Musculoskeletal History: Positive for:: Back Injury (history of fall. ) Denies:: Joint Replacement Hx of Psycho/Social Problems?: Yes Psycho Social History: Positive for:: Anxiety Bipolar Disorder Hx Depression Denies:: Suicide Attempt Hx Surgeries?: Yes (HYST,C SETION,BOBBY, APPY, 4 LAP,SINUS,MULT EYE, TONSIL) Hx Any Other Health Problems?: Yes Other History: Positive for:: Cancer (Throat cancer) Denies:: Endocrine Disease Thyroid Disease History Blood Transfusions: Denies:: Blood Transfusions Hx Diabetes: Yes Hx Alcohol Use: NoHx Substance Use: No Smoking Status: Never Smoker Have You Smoked inLast 12 mo: No Stop/Bang ROBERT Risk Assessment: High Risk, =/>3 Yes ROBERT Category 4 OutPt Procedure: Yes Risk Assessment Category Category 1A: Patient has history of documented sleep apnea, and HAS NOT received any narcotic, sedative or anesthesia administration during this stay. Category 1B: Patient has history of documented sleep apnea, and HAS received any narcotic , sedative or anesthesia administration during this stay Category 2: Patient has SUSPECTED Obstructive Sleep Apnea, and HAS received any narcotic , sedative or anesthesia administration during this stay. Category 3: Patient has SUSPECTED Obstructive Sleep Apnea and HAS NOT received narcotic, sedative or anesthesia administration during this stay. Category 4: Outpatient in Procedural Areas with known sleep apnea or who screen positive for High Risk via the STOP/BANG questionnaire. Exam Exam General Appearance: Alert, Oriented X3, Cooperative, No Acute Distress HEENT/AIRWAY: MP 2 Lungs: Clear to Auscultation, Normal Air Movement Heart: Exam Unremarkable, Regular Rate/Rhythm, No Murmurs/Rubs/Gallops Additional Information morbid obese Plan Impression Patient chart reviewed, patient interviewed and anesthestic plan with risks, benefits, and alternatives discussed, and informed consent obtained. NPO Status: greater than 8 hours for solids and greater than 2 hours for water ASA Physical Status: ASA3 Severe Disease Anesthetic Plan: MAC Bene/Risks/Altern/Consents: Yes HP Complete Prior to Induction: Yes Allie Soares MD May 21, 2016 07:26
[~2016-05-21 08:12] MED LIST changes: +ALBU8.5H2 INHALATION; +CLON0.2T PO; +IBUP-1827 PO; +KETO60SY IM; +Lactated Ringer's 1,000 ML IV ONE; -MAGN400T4 PO; +METH4TAB12 PO; -PROZASIN PO; +RIZA5TAB34 PO; -SELE200T11 PO
[2016-05-21] MEDS ORDERED: fentaNYL-PF 50 mCg/mL 2 mL Inj ONE (08:13)
[2016-05-21] MEDS ORDERED: Propofol 10,000 mCg/mL 20 mL Inj ONE ×2 (08:13)
[2016-05-21 08:50] VITALS: BP 144/67; PULSE 77; RESP 18; O2SAT 98
--- NOTE | 2016-05-21 09:26 | PCM.ENDEGD ---
EGD Date of Service: May 21, 2016 Physician Judson Aguirre MD Pre Procedure Diagnosis: Dysphagia Post Procedure Dx & Findings: Gastritis and bile in the stomach Procedure Esophagogastroduodenoscopy PROCEDURE IN DETAIL: The patient was placed in left lateral decubitus position. Bite block was placed. Scope lubricated, placed in posterior pharynx, passed through the cricopharyngeus and esophagus, slowly advanced the entire length of the gastric pouch, pylorus was identified, scope passed through the pylorus and descending portion of duodenum, withdrawn in the antrum, retroflexed upon itself for view of fundus and cardia. Scope was then withdrawn through the oropharynx. Esophagus appeared normal without any ulcer mass erosion. Z line at 40 cm and was intact. In the stomach, it showed showed film of bile throughout the stomach. Antrum was spared. After washing mild redness and inflammation noted. Biopsy obtained. Retroflexion was done. Stomach was easily inflated balloon deflated using air. Normal rugae folds noted. Cardia fundus body antrum and pylorus were visualized. Scope further events the duodenum distal. Normal villous structure and normal folds were noted. Impression Gastritis possibly from bile acid reflux. Recommendation Continue PPI Encourage weight loss. Presedation Assessment Risks and Benefits Informed consent was obtained from the patient after all risks and benefits including but not limited to drug reaction, infection, pain, bleeding, perforation, as well as alternatives were discussed. Patient monitoring Continuous pulse oximetry, cardiac monitoring, blood pressure monitoring, IV access, and oxygen at 2L per nasal cannula. Complications There were no periprocedural complications identified. Post Procedure Plan Post Procedure Recommendations 1. Restrict activities today. 2. Resume normal activities in the morning. 3. Resume medications. 4. GERD behavioral modification: - Avoid fatty, acidic, spicy, large meals - Do not lie down after meals - Do not eat or drink anything for at least 2 1/2 hours before going to bed at night - Discontinue tobacco and alcohol - Decrease or avoid caffeine - Avoid chocolate and mints - Decrease weight - Avoid aspirin and non steroidal anti-inflammatory agents (NSAID) such as Aleve, Advil, Mobic, Naproxen, Ibuprofen, etc 5. Add proton pump inhibitor. Take 30 minutes before 1st meal of the day. 6. Patient informed of normal post procedure side effects as bloating, drowsiness, blood streaking in the stool 7. If gastric biopsy reveal H.pylori, continue with appropriate treatment 8. If small bowel biopsy reveals celiac, continue with appropriate treatment 9. Please don't hesitate to call me with any questions Judson Aguirre MD May 21, 2016 09:26
[2016-05-21] MEDS ORDERED: Lactated Ringer's 1,000 ML IV SCH (09:47)
--- NOTE | 2016-05-21 09:47 | PCM.ANEP1 ---
Post Anesthesia Phase 1 PACU Phase 1 Assessment Date of Service: May 21, 2016 Vital Signs Vital Signs Date Time Temp Pulse Resp B/P Pulse Ox O2 Delivery O2 Flow Rate FiO2 05/21/16 08:50 35.9 77 18 144/67 98 Room Air Anesthetic Administered: MAC Level of Alertness: Awake, talking ROCK's with Equal Strength: Yes Pain: No Nausea or Vomiting: No Oxygen Delivery: Nasal Cannula Lungs: Clear to Auscultation, Normal Air Movement Allie Soares MD May 21, 2016 09:47
--- NOTE | 2016-05-21 09:48 | PCM.ENDCOL ---
Colonoscopy Date of Service: May 21, 2016 Physician Judson Aguirre MD Pre Procedure Diagnosis: Worsening constipation Post Procedure Dx & Findings: Poor prep unable to get to the cecum Procedure Colonoscopy Prep poor PROCEDURE IN DETAIL: After unremarkable rectal examination: Olympus video colonoscope was inserted into patient's anal canal was advanced to probably the ascending colon. Due to her body habitus, pressure was not adequate. Furthermore, we could not change body position because was not enough room in the bed. We will retry to put her on her back or on the right side, there was a thickened risk of her falling out of bed. In the rectum retroflexion was done. Again because of liquid stool mixed with solid component, it was very difficult to see. Impression Inadequate prep Unable to get to the cecum due to patient's body habitus and we could not change position to advanced into cecum. Recommendation Double contrast barium enema Presedation Assessment Risks and Benefits Informed consent was obtained from the patient after all risks and benefits including but not limited to drug reaction, infection, pain, bleeding, perforation, as well as alternatives were discussed. Patient monitoring Continuous pulse oximetry, cardiac monitoring, blood pressure monitoring, IV access, and oxygen at 2L per nasal cannula. Complications There were no periprocedural complications identified. Post Procedure Plan Post Procedure Recommendations 1. Restrict activities today. 2. Resume normal activities in the morning. 3. Resume medications. 4. Patient informed of normal post procedure side effects as bloating, drowsiness, blood streaking in the stool. 5. average risk CRCS. If colon polyps come back as: -Hyperplastic- can repeat colonoscopy in 10 years -Tubular adenoma- repeat colonoscopy in 5 years -Tubulovillous/villous adenoma- repeat colonoscopy in 3 years -If any dysplasia- return to clinic as soon as possible 6. Please don't hesitate to call me with any questions. Judson Aguirre MD May 21, 2016 09:48
[2016-05-21 09:50] VITALS: BP 112/73; PULSE 78; RESP 12; O2SAT 95
[2016-05-21] MEDS ORDERED: MetoCLOpramide 5 mg/mL 2 mL Inj IVPUSH PRN (09:50)
[2016-05-21] MEDS ORDERED: Ondansetron 2 mg/mL 2 mL Inj IVPUSH PRN (09:50)
--- NOTE | 2016-05-21 09:55 | PCM.ANEP2 ---
Post Anesthesia Evaluation ASA/CMS Post Anesthesia VS in Patient's Normal Range?: Yes Resp Stable; Airway Patent?: Yes CV Function & Hydration Stable: Yes Mental Status Recovered?: Yes Pain control Satisfactory?: Yes N/V Control Satisfactory?: Yes Allie Soares MD May 21, 2016 09:55
[2016-05-21 10:05] VITALS: BP 112/70; PULSE 77; RESP 10; O2SAT 95
--- NOTE | 2016-05-22 14:32 | PATH ---
SURGICAL PATHOLOGY Attending Physician:Judson Aguirre M.D. CASE STATUS: Signed Out PATIENT NAME: JOSHUA CABRAL PID: [id number] : 1970 DATE COLLECTED:05/21/2016 15:32 SPECIMEN: Gastric, Biopsy CLINICAL HISTORY: 1).GASTRIC BIOPSY FINAL DIAGNOSIS: 1.GASTRIC BIOPSY: DIFFUSE MILD CHRONIC GASTRITIS INVOLVING FUNDIC MUCOSA. Negative for evidence of Helicobacter. Negative for intestinal metaplasia. Negative for dysplasia and malignancy. ICD10 code K29.70 GROSS DESCRIPTION: The specimen is received in one formalin filled container labeled with the patient's name, sublabeled "gastric" and consists of 3 portions of tissue which aggregate to 0.4 x 0.3 x 0.2 CM. The specimen is entirely submitted in one cassette. 05/21/2016 [facility] MICRO DESCRIPTION: See diagnosis. ICD-9 CODES: CPT CODES: 1: 68926 Electronically Signed Out Dominic Bennett MD [facility] [address], [place] [address] Technical component performed at [facility], [facility] [address], [place], [address]
== END 2016-05-21 23:59 | disposition home or self-care (01) ==
LOC: END 08:12
PROVIDERS: ATTEND Internal Medicine
DX: K21.9 Gastro-esophageal reflux disease without esophagitis (principal); K29.50 Unspecified chronic gastritis without bleeding; K59.00 Constipation, unspecified; Z53.8 Procedure and treatment not carried out for other reasons; E11.42 Type 2 diabetes mellitus with diabetic polyneuropathy; G43.801 Other migraine, not intractable, with status migrainosus; Z79.82 Long term (current) use of aspirin; Z79.84 Long term (current) use of oral hypoglycemic drugs; E66.9 Obesity, unspecified; Z68.43 Body mass index [BMI] 50.0-59.9, adult; G47.33 Obstructive sleep apnea (adult) (pediatric)
CPT/HCPCS: 43239; 45378; 88305; J2250; J3010; J7120

== ENCOUNTER 2016-05-27 00:46 | Emergency (ER) | payer OTHER ==
[~2016-05-27] VITALS: Ht 157.5 cm; Wt 122.7 kg
[~2016-05-27 00:46] MED LIST changes: -IBUP-1827 PO; -LIDOCAINE CREAM TOP; -Lactated Ringer's 1,000 ML IV ONE; -METH4TAB12 PO; -RIZA5TAB34 PO
[2016-05-27 00:52] VITALS: BP 162/84; PULSE 78; RESP 22; O2SAT 98
--- NOTE | 2016-05-27 01:15 | ED.REPORT ---
HPI-General Illness Date of Service May 27, 2016 ED Provider: Dr. Logan Beck M.D. A 45 year old female with a medical history including diabetes, hypertension, spinal stenosis, depression, and frequent ER visits for chronic migraines presents to the ED with a headache onset today. The headache is similar to previous migraines. The patient also reports photophobia, nausea, vomiting, and itchiness on the back of her neck. She denies other symptoms. The patient was recently in the ED on 05/14/16 where she was placed on Amoxicillin for a sinus infection. Nursing Notes Stated Complaint: MIGRAINE/NAUSEA/VOMITING Chief Complaint: Headache Nursing Notes Reviewed: Yes Allergies: Coded Allergies: Contrast Media (Verified Allergy, Unknown, 05/27/16) Sulfa (Sulfonamide Antibiotics) (Verified Allergy, Unknown, 05/27/16) cephalexin (Verified Allergy, Unknown, 05/27/16) ciprofloxacin (Verified Allergy, Unknown, 05/27/16) dihydroergotamine mesylate (Verified Allergy, Unknown, 05/27/16) ether (Verified Allergy, Unknown, 05/27/16) iodine (Verified Allergy, Unknown, 05/27/16) morphine (Verified Allergy, Unknown, 05/27/16) prednisolone (Verified Allergy, Unknown, Causes Severe depression, 05/27/16) sumatriptan (Verified Allergy, Unknown, 05/27/16) Scheduled Aspirin Chew (Aspirin Chew) 81 Mg Chew 81 MG PO DAILY Clonidine (Clonidine) 0.2 Mg Tablet 0.4 MG PO BID Doxepin (Doxepin) 100 Mg Capsule 75 MG PO BID Duloxetine (Cymbalta) 30 Mg Capsule.dr 60 MG PO DAILY Lamotrigine (Lamotrigine) 200 Mg Tablet 150 MG PO BID Lisinopril (Lisinopril) 20 Mg Tablet 20 MG PO DAILY Loratadine (Claritin) 10 Mg Capsule 10 MG PO DAILY Metformin (Metformin) 500 Mg Tablet 2,000 MG PO BID WITH EVENING MEAL Methocarbamol (Robaxin-750) 750 Mg Tablet 1,500 MG PO [id number] Pantoprazole DR (Protonix) 40 Mg Tablet.dr 40 MG PO DAILY Pregabalin (Lyrica) 100 Mg Capsule 1 TAB PO TID Propranolol ER (Propranolol ER) 160 Mg Cap.sa.24h 160 MG PO BID Simvastatin (Simvastatin) 20 Mg Tablet 20 MG PO HS Zonisamide (Zonisamide) 100 Mg Capsule 100 MG PO HS Scheduled PRN Albuterol HFA (Proair HFA) 8.5 Gm Hfa.aer.ad 2 PUFFS INHALATION Q4H PRN PRN For Shortness of Breath Butalbital/Acetamin/Caff 50-300-40 mg (Fioricet 50-300-40 mg) 1 Each Capsule 1 CAPSULE PO Q4H PRN PRN Headache Epinephrine (Epinephrine) 0.3 Mg/0.3 Ml Auto.injct 0.3 MG IJ PRN For Anaphyllaxis Ketorolac Tromethamine (Ketorolac Tromethamine) 60 Mg/2 Ml Syringe 60 MG IM DAILY PRN PRN For Pain Ondansetron ODT (Zofran ODT) 8 Mg Tablet 8 MG PO Q4H PRN PRN For Nausea Pramipexole Dihydrochloride (Pramipexole Dihydrochloride) 1 Mg Tablet 0.75 MG PO DAILY PRN PRN Restless leg General Time Seen by MD: 01:15 Chief Complaint Headache Hx Obtained From: Patient Arrived By: Walk-in Sudden in Onset?: No Onset Occurred: 5 - 8 hours ago Symptom Duration: Since onset Location: : Head Quality: Painful Severity: Current: Moderate Severity: Maximum: Moderate Associated with: Reports: Nausea, Vomiting, Denies: Fever Pertinent Negative: Relieved by nothing Context Related History: Reports Depression, Reports Diabetes mellitus, Reports Psychiatric history Recent Healthcare: Recent doctor visit Similar Sx Previous: Yes Past Medical History Past Medical History Notes: Frequent ER visits for headache Dr. Meyers, Neurology [facility], Psychiatric prescriber Past Medical History GERD Chronic depression Chronic migraines opioid Dependency and withdrawal headaches asthma Fibromyalgia Neuropathy 85% deaf Blind in right eye Morbid Obesity Spinal stenosis Anxiety Bipolar disorder Reports: Asthma, Diabetes mellitus, Gastritis, Hypertension, Peptic ulcer disease Reports: Obesity Past Surgical History Cholecystectomy Appendectomy Hysterectomy Laparoscopy Tonsillectomy Cholecystectomy Sinus Multiple eye surgeries Colonoscopy Family History Reviewed, not relevant Smoking History Never Smoker Social History She reports recent graduation with Masters Counseling degree and successfully quit smoking. She has 4 grandchildren. Lives with son and his and their daughter Alcohol Use: Denies alcohol use Drug Use: Denies drug use Other Social History: Frequent ED visitor, , Local resident Occupation Student Ambulatory Status Independent Review of Systems Full Review of Systems Constitutional: Denies: Fever Eyes: Reports: Photophobia Respiratory: Denies: Non-productive cough, Shortness of breath GI: Reports: Nausea, Vomiting Skin: Reports Itching (Back of neck) Neurologic: Reports: Headache Complete sys rev & neg: except as marked. Physical Exam Vital Signs Vital Signs Date Time Temp Pulse Resp B/P Pulse Ox O2 Delivery O2 Flow Rate FiO2 05/27/16 02:48 74 16 149/69 96 Room Air 05/27/16 00:52 36.8 78 22 162/84 98 Room Air Initial VS: Reviewed ENT: Conjunctiva normal, No scleral icterus Neck: Supple, Full range of motion Respiratory: Breath sounds normal, Clear to auscultation, No respiratory distress Cardiovascular: Regular rate & rhythm, Heart sounds normal Neurologic: Alert, Oriented, Nonfocal Psychiatric: Mood/affect normal, Behavior normal, Normal thought content General/Constitutional: Awake, Alert Appearance / Presentation: Positive: Obese Head / Eyes: Atraumatic, Normocephalic, PERRL, EOMI Eye Movement: Positive: Nystagmus present (Baseline) Skin: Warm, Dry Excoriated papules diffusely Re-Eval/Medical Decision Med Decision/Clinical Course Chronic migraine sufferer presents one of multiple times with migraine. Additional symptoms today include a rash on her neck and chest, since receiving amoxicillin for sinus infection last visit. She was treated with standard cocktail and is again required Keppra tonight. Home for follow-up with her PCP. Discharge & Departure Shift Change Sign-Out Response to Therapy: Improved Primary Impression: Migraine Additional Impression: Allergic drug reaction Disposition: Home Discharge Condition All VS Reviewed: Yes Condition: Improved Referrals: Philip Henriquez MD (PCP) Scribe Attestation Portions of this note were transcribed by Ashley Salazar. I, Dr. Beck, personally performed the history, physical exam, and medical decision-making; I reviewed and confirmed the accuracy of the information in the transcribed note. copies to: Philip Henriquez MD, Christopher W MD May 27, 2016 01:15 ASHLEY SALAZAR May 27, 2016 01:30
[2016-05-27] MEDS ORDERED: 0.9% Sodium Chloride 1,000 ML IV ONE (01:19)
[2016-05-27] MEDS ORDERED: Promethazine Inj 25 MG in 0.9% Sodium Chloride 50 ML IV ONE (01:20)
[2016-05-27] MEDS ORDERED: Haloperidol 5 mg/mL Inj IVPUSH ONE (01:20)
[2016-05-27 02:48] VITALS: BP 149/69; PULSE 74; RESP 16; O2SAT 96
[2016-05-27] MEDS ORDERED: levETIRAcetam Inj 1,000 MG in IV Premix 1 EACH IV ONE (02:50)
[2016-05-27] MEDS ORDERED: HYDR15CR38 TP (03:23)
[2016-05-27] MEDS ORDERED: HYDR25CA PO (03:24)
[2016-05-27 03:43] VITALS: BP 136/69; PULSE 80; RESP 18; O2SAT 97
--- NOTE | 2016-05-28 11:36 | NUR ---
ED Visit - Post hospital follow up TC. REYES called Pt at home - identified that pt was in ED on May 27 for migraine. ANSELMO report identifies 34 ED visits in the past year. Pt states that she was feeling much better last month - headaches becoming less frequent. She has follow up with Dr Meyers Neurologist this month and has an appointment with her therapist at [facility] in three weeks. Pt denies any concerns or needs - states that she will follow up with her PCP and specialists. No new stressors - pt aware of community resources. MACHINE RIVETER provided education and support and will continue to follow. QI Ramirez
== END 2016-05-27 03:48 | disposition home or self-care (01) ==
LOC: SED 00:46
DX: G43.909 Migraine, unspecified, not intractable, without status migrainosus (principal); T36.0X5A Adverse effect of penicillins, initial encounter; F32.9 Major depressive disorder, single episode, unspecified; E11.9 Type 2 diabetes mellitus without complications; I10 Essential (primary) hypertension; K21.9 Gastro-esophageal reflux disease without esophagitis; M48.00 Spinal stenosis, site unspecified; J45.909 Unspecified asthma, uncomplicated; Z87.891 Personal history of nicotine dependence; Z91.041 Radiographic dye allergy status; Z79.82 Long term (current) use of aspirin; Z79.4 Long term (current) use of insulin; Z88.1 Allergy status to other antibiotic agents; Z88.2 Allergy status to sulfonamides; Z88.5 Allergy status to narcotic agent; Z88.8 Allergy status to other drugs, medicaments and biological substances
CPT/HCPCS: 96361; 96365; 96375; 99284; J1200; J1630; J1953; J2550; J7030

== ENCOUNTER 2016-05-31 04:55 | Emergency (ER) | payer OTHER ==
[~2016-05-31] VITALS: Ht 157.5 cm; Wt 113.6 kg
[~2016-05-31 04:55] MED LIST changes: +HYDR15CR38 TP; +HYDR25CA PO
[2016-05-31 05:02] VITALS: BP 163/57; PULSE 64; RESP 20; O2SAT 99
[2016-05-31] MEDS ORDERED: 0.9% Sodium Chloride 1,000 ML IV ONE (05:40)
--- NOTE | 2016-05-31 07:17 | ED.REPORT ---
HPI-Headache Date of Service May 31, 2016 ED Provider: Anshul Pryor MD A 45 year old female with a history of diabetes, hypertension, spinal stenosis, depression, and frequent ED visits for chronic migraines presents to the ED complaining of a headache that began earlier this morning. Associated symptoms include nausea and visual disturbances. Patient was seen on 05/27 for similar symptoms and was discharged in good condition. She took Tylenol and ibuprofen with no relief. Patient states that this feels similar to her previous migraines. She denies fever, difficultly swallowing or weakness. Nursing Notes Stated Complaint: HEADACHE/NAUSEA/BLURRED VISION Chief Complaint: Headache Nursing Notes Reviewed: Yes Allergies: Coded Allergies: Contrast Media (Verified Allergy, Unknown, 05/31/16) Sulfa (Sulfonamide Antibiotics) (Verified Allergy, Unknown, 05/31/16) cephalexin (Verified Allergy, Unknown, 05/31/16) ciprofloxacin (Verified Allergy, Unknown, 05/31/16) dihydroergotamine mesylate (Verified Allergy, Unknown, 05/31/16) ether (Verified Allergy, Unknown, 05/31/16) iodine (Verified Allergy, Unknown, 05/31/16) morphine (Verified Allergy, Unknown, 05/31/16) prednisolone (Verified Allergy, Unknown, Causes Severe depression, 05/31/16) sumatriptan (Verified Allergy, Unknown, 05/31/16) Scheduled Aspirin Chew (Aspirin Chew) 81 Mg Chew 81 MG PO DAILY Clonidine (Clonidine) 0.2 Mg Tablet 0.4 MG PO BID Doxepin (Doxepin) 100 Mg Capsule 75 MG PO BID Duloxetine (Cymbalta) 30 Mg Capsule.dr 60 MG PO DAILY Hydrocortisone Valerate (Hydrocortisone Valerate) 15 Gm Cream..g. 1 GM TP BID Lamotrigine (Lamotrigine) 200 Mg Tablet 150 MG PO BID Lisinopril (Lisinopril) 20 Mg Tablet 20 MG PO DAILY Loratadine (Claritin) 10 Mg Capsule 10 MG PO DAILY Metformin (Metformin) 500 Mg Tablet 2,000 MG PO BID WITH EVENING MEAL Methocarbamol (Robaxin-750) 750 Mg Tablet 1,500 MG PO [id number] Pantoprazole DR (Protonix) 40 Mg Tablet.dr 40 MG PO DAILY Pregabalin (Lyrica) 100 Mg Capsule 1 TAB PO TID Propranolol ER (Propranolol ER) 160 Mg Cap.sa.24h 160 MG PO BID Simvastatin (Simvastatin) 20 Mg Tablet 20 MG PO HS Zonisamide (Zonisamide) 100 Mg Capsule 100 MG PO HS Scheduled PRN Albuterol HFA (Proair HFA) 8.5 Gm Hfa.aer.ad 2 PUFFS INHALATION Q4H PRN PRN For Shortness of Breath Butalbital/Acetamin/Caff 50-300-40 mg (Fioricet 50-300-40 mg) 1 Each Capsule 1 CAPSULE PO Q4H PRN PRN Headache Epinephrine (Epinephrine) 0.3 Mg/0.3 Ml Auto.injct 0.3 MG IJ PRN For Anaphyllaxis Hydroxyzine Pamoate (Vistaril) 25 Mg Capsule 25 MG PO HS PRN PRN For Insomnia Ketorolac Tromethamine (Ketorolac Tromethamine) 60 Mg/2 Ml Syringe 60 MG IM DAILY PRN PRN For Pain Ondansetron ODT (Zofran ODT) 8 Mg Tablet 8 MG PO Q4H PRN PRN For Nausea Pramipexole Dihydrochloride (Pramipexole Dihydrochloride) 1 Mg Tablet 0.75 MG PO DAILY PRN PRN Restless leg General Time Seen by MD: 06:02 Chief Complaint Headache Hx Obtained From: Patient Arrived By: Walk-in Sudden in Onset?: No Onset Occurred: 1 - 4 hours ago Symptom Duration: Since onset Location: : Generalized Quality: Aching Severity: Current: Mild Severity: Maximum: Moderate Associated with: Denies: Fever Pertinent Negative: Pt denies other symptoms Recent Healthcare: No recent doctor visit, No recent hospitalization Risk-Headache )( SAH Risk Stratification RF Statements: Risk factors reviewed )( IC Mass Risk Stratification RF Statements: Risk factors reviewed Past Medical History Past Medical History Notes: Frequent ER visits for headache Dr. Meyers, Neurology [facility], Psychiatric prescriber Past Medical History GERD Chronic depression Chronic migraines opioid Dependency and withdrawal headaches asthma Fibromyalgia Neuropathy 85% deaf Blind in right eye Morbid Obesity Spinal stenosis Anxiety Bipolar disorder Reports: Asthma, Diabetes mellitus, Gastritis, Hypertension, Peptic ulcer disease Reports: Obesity Past Surgical History Cholecystectomy Appendectomy Hysterectomy Laparoscopy Tonsillectomy Cholecystectomy Sinus Multiple eye surgeries Colonoscopy Family History Reviewed, not relevant Smoking History Former Smoker Social History She reports recent graduation with Masters Counseling degree and successfully quit smoking. She has 4 grandchildren. Lives with son and his and their daughter Alcohol Use: Denies alcohol use Drug Use: Denies drug use Other Social History: Frequent ED visitor, , Local resident Occupation Student Ambulatory Status Independent Review of Systems Constitutional: Denies: Chills, Fever Eyes: Reports: Blurred bilateral GI: Reports: Nausea, Denies: Abdominal pain, Vomiting Neurologic: Reports: Headache, Denies: Change LOC, Vision change, Weakness Complete sys rev & neg: except as marked. Physical Exam Initial Vital Signs Vital Signs (First) Date Time Temp Pulse Resp B/P Pulse Ox O2 Delivery O2 Flow Rate FiO2 05/31/16 05:02 36.8 64 20 163/57 99 Room Air Initial VS: Reviewed Extremities: Vascular intact, Neuro intact, No swelling, No tenderness Skin: Warm, Dry, No cyanosis Psychiatric: Mood/affect normal, Behavior normal, Normal thought content General/Constitutional: Awake, Alert Head / Eyes: Atraumatic, Normocephalic, PERRL Neck: Atraumatic, Supple, Full range of motion Neurologic: Oriented X3, Speech NL, No motor deficits, No sensory deficits, CN II - XII intact NERUO: 5/5 Strength in all 4 extremitites Respiratory / Chest: Atraumatic, Breath sounds NL, Breath sounds = bilat Cardiovascular: Heart rate NL, Regular rhythm, Heart sounds NL, No murmurs Abdomen: Atraumatic, Soft Interpretation & Diagnostics Lab Results Interpretation Test 05/31/16 05:29 Hold Purple Top Tube Received (Received) Hold Blue Top Tube Received (Received) Hold [place] Top Tube Received (Received) Re-Eval/Medical Decision Med Decision/Clinical Course 45-year-old female history of chronic migraines presenting complaining of her typical migraine. No neurological deficits. This is identical to her previous. No signs symptoms meningitis. Improved with Toradol, dexamethasone, Benadryl IV fluids. Patient was discharged plans to follow-up with her regular doctor. Return precautions given. Re-Evaluation/Progress : Time of Eval: 07:30 )( Patient Status: Condition improved Re-Evaluation/Progress Note: Patient is rechecked. She is feeling much better. She is informed of her lab results and diagnosis. All of the patient's questions are addressed. She understands and agrees with the treatment plan. Counseled Regarding: Diagnosis, Lab results, Need for follow-up, When/why to return to ED Discharge & Departure Impression: Primary Impression: Migraine Migraine type: unspecified Status migrainosus presence: without status migrainosus Intractability: not intractable Qualified Code: G43.909 - Migraine, unspecified, not intractable, without status migrainosus Disposition: Home Discharge Condition All VS Reviewed: Yes Condition: Stable Patient Instructions: Migraine Headache (ED) Additional Instructions: Thank you for trusting us with your care this evening. Your emergency department results are reassuring at this time. Take 1-2 ibuprofen every 6-8 hours as needed for headache. Schedule a follow up appointment with Dr. Meyers in the next 1-2 days for a recheck. Please return to the emergency department for any new or worsening conditions. Referrals: Philip Henriquez MD (PCP) Rodolfoibe Attestation Portions of this note were transcribed by Joan Baez. I, Dr. Pryor personally performed the history, physical exam and medical decision-making; I reviewed and confirmed the accuracy of the information in the transcribed note. Signed by: Deloris Soto, 05/31/16 0800. copies to: Philip Henriquez MD, Ben M MD May 31, 2016 07:17 JOAN BAEZ May 31, 2016 07:25
[2016-05-31] MEDS ORDERED: Dexamethasone 10 mg/mL Inj IVPUSH ONE (07:25)
== END 2016-05-31 08:27 | disposition home or self-care (01) ==
LOC: SED 04:55
DX: G43.909 Migraine, unspecified, not intractable, without status migrainosus (principal); I10 Essential (primary) hypertension; E11.40 Type 2 diabetes mellitus with diabetic neuropathy, unspecified; J45.909 Unspecified asthma, uncomplicated; K21.9 Gastro-esophageal reflux disease without esophagitis; F41.8 Other specified anxiety disorders; F31.9 Bipolar disorder, unspecified; M48.00 Spinal stenosis, site unspecified; M79.7 Fibromyalgia; Z79.82 Long term (current) use of aspirin; Z79.84 Long term (current) use of oral hypoglycemic drugs; Z87.891 Personal history of nicotine dependence; Z88.1 Allergy status to other antibiotic agents; Z88.2 Allergy status to sulfonamides; Z88.5 Allergy status to narcotic agent; Z88.8 Allergy status to other drugs, medicaments and biological substances; Z91.041 Radiographic dye allergy status
CPT/HCPCS: 96374; 96375; 99284; J1100; J1200; J7030

== ENCOUNTER 2016-06-05 06:03 | Emergency (ER) | payer OTHER ==
[~2016-06-05] VITALS: Ht 152.4 cm; Wt 113.6 kg
[2016-06-05 06:10] VITALS: BP 131/82; PULSE 85; RESP 20; O2SAT 97
--- NOTE | 2016-06-05 06:14 | ED.REPORT ---
HPI-Headache Date of Service Jun 05, 2016 ED Provider: Chuy Espino DO A 45 year old female with a medical history including diabetes, hypertension, spinal stenosis, depression, and frequent ER visits for chronic migraines presents to the ED w/ a sudden onset migraine since 2100 last night. The headache is located in middle, frontal lobe, and left occipital. She confirms nausea, vomiting, photophobia, sound sensitivity and reports this feels the same as her other migraines. She's taken her maximum dose of Percocet. She usually experiences a few mild symptoms before onset but this episode was very sudden. She denies weakness, numbness, and neck pain. Previously, Toradol, Benadryl, Zofran, and Reglan have been effective in reducing her symptoms. Her most recent visit was 05/27/16. She used to have migraines on a daily basis, but after starting Botox treatment once a month, they have become more irregular. It is getting close to her monthly appointment. Nursing Notes Stated Complaint: NAUSEA/VOMITING/MIGRANE Chief Complaint: Headache Nursing Notes Reviewed: Yes Allergies: Coded Allergies: Contrast Media (Verified Allergy, Unknown, 05/31/16) Sulfa (Sulfonamide Antibiotics) (Verified Allergy, Unknown, 05/31/16) cephalexin (Verified Allergy, Unknown, 05/31/16) ciprofloxacin (Verified Allergy, Unknown, 05/31/16) dihydroergotamine mesylate (Verified Allergy, Unknown, 05/31/16) ether (Verified Allergy, Unknown, 05/31/16) iodine (Verified Allergy, Unknown, 05/31/16) morphine (Verified Allergy, Unknown, 05/31/16) prednisolone (Verified Allergy, Unknown, Causes Severe depression, 05/31/16) sumatriptan (Verified Allergy, Unknown, 05/31/16) Scheduled Aspirin Chew (Aspirin Chew) 81 Mg Chew 81 MG PO DAILY Clonidine (Clonidine) 0.2 Mg Tablet 0.4 MG PO BID Doxepin (Doxepin) 100 Mg Capsule 75 MG PO BID Duloxetine (Cymbalta) 30 Mg Capsule.dr 60 MG PO DAILY Hydrocortisone Valerate (Hydrocortisone Valerate) 15 Gm Cream..g. 1 GM TP BID Lamotrigine (Lamotrigine) 200 Mg Tablet 150 MG PO BID Lisinopril (Lisinopril) 20 Mg Tablet 20 MG PO DAILY Loratadine (Claritin) 10 Mg Capsule 10 MG PO DAILY Metformin (Metformin) 500 Mg Tablet 2,000 MG PO BID WITH EVENING MEAL Methocarbamol (Robaxin-750) 750 Mg Tablet 1,500 MG PO [id number] Pantoprazole DR (Protonix) 40 Mg Tablet.dr 40 MG PO DAILY Pregabalin (Lyrica) 100 Mg Capsule 1 TAB PO TID Propranolol ER (Propranolol ER) 160 Mg Cap.sa.24h 160 MG PO BID Simvastatin (Simvastatin) 20 Mg Tablet 20 MG PO HS Zonisamide (Zonisamide) 100 Mg Capsule 100 MG PO HS Scheduled PRN Albuterol HFA (Proair HFA) 8.5 Gm Hfa.aer.ad 2 PUFFS INHALATION Q4H PRN PRN For Shortness of Breath Butalbital/Acetamin/Caff 50-300-40 mg (Fioricet 50-300-40 mg) 1 Each Capsule 1 CAPSULE PO Q4H PRN PRN Headache Epinephrine (Epinephrine) 0.3 Mg/0.3 Ml Auto.injct 0.3 MG IJ PRN For Anaphyllaxis Hydroxyzine Pamoate (Vistaril) 25 Mg Capsule 25 MG PO HS PRN PRN For Insomnia Ketorolac Tromethamine (Ketorolac Tromethamine) 60 Mg/2 Ml Syringe 60 MG IM DAILY PRN PRN For Pain Ondansetron ODT (Zofran ODT) 8 Mg Tablet 8 MG PO Q4H PRN PRN For Nausea Pramipexole Dihydrochloride (Pramipexole Dihydrochloride) 1 Mg Tablet 0.75 MG PO DAILY PRN PRN Restless leg General Time Seen by MD: 06:12 Chief Complaint Migraine headache Hx Obtained From: Patient Arrived By: Walk-in Sudden in Onset?: Yes Onset Occurred: Just prior to arrival Symptom Duration: Since onset Location: : Frontal bilateral: Occipital left Quality: Painful Severity: Current: Moderate Past Medical History Past Medical History Notes: Frequent ER visits for headache Dr. Hedrick, Neurology [facility], Psychiatric prescriber Past Medical History GERD Chronic depression Chronic migraines opioid Dependency and withdrawal headaches asthma Fibromyalgia Neuropathy 85% deaf Blind in right eye Morbid Obesity Spinal stenosis Anxiety Bipolar disorder Reports: Asthma, Diabetes mellitus, Gastritis, Hypertension, Peptic ulcer disease Reports: Obesity Past Surgical History Cholecystectomy Appendectomy Hysterectomy Laparoscopy Tonsillectomy Cholecystectomy Sinus Multiple eye surgeries Colonoscopy Family History Reviewed, not relevant Smoking History Former Smoker Social History She reports recent graduation with Masters Counseling degree and successfully quit smoking. She has 4 grandchildren. Lives with son and his and their daughter Alcohol Use: Denies alcohol use Drug Use: Denies drug use Other Social History: Frequent ED visitor, , Local resident Occupation Student Ambulatory Status Independent Review of Systems Review of Systems Note: photophobia sensitive to sound GI: Reports: Nausea, Vomiting Musculoskeletal: Denies: Neck pain Neurologic: Reports: Headache, Denies: Numbness, Weakness Complete sys rev & neg: except as marked. Physical Exam Initial Vital Signs Vital Signs (First) Date Time Temp Pulse Resp B/P Pulse Ox O2 Delivery O2 Flow Rate FiO2 06/05/16 06:10 36.4 85 20 131/82 97 Room Air Initial VS: Reviewed Respiratory: Breath sounds normal, Clear to auscultation, No respiratory distress Cardiovascular: Regular rate & rhythm, Heart sounds normal, Intact distal pulses Abdomen / GI: Soft, Non-tender, No guarding, No rebound, No distention Extremities: Vascular intact, Neuro intact, No swelling, No tenderness Skin: Warm, Dry, No cyanosis General/Constitutional: Awake, Alert, Cooperative Head / Eyes: Atraumatic, Normocephalic, PERRL, EOMI Neck: Atraumatic, Supple, No meningismus, Full range of motion, No adenopathy, No swelling, Non-tender Neurologic: Oriented X3, Speech NL, No motor deficits ENT: Pharynx NL, Tympanic membs NL Mouth: Positive: Mucous membranes dry Interpretation & Diagnostics Lab Results Interpretation Result Diagram: 06/05/16 0635 06/05/16 0635 Test 06/05/16 06:35 White Blood Count 12.2th/mm3 (3.8-10.1) Red Blood Count 4.79mil/mm3 (3.90-5.20) Hemoglobin 11.1g/dL (12.0-15.6) Hematocrit 38.0% (35.0-46.0) Mean Corpuscular Volume 79.3fL (81-100) Mean Corpuscular Hemoglobin 23.2pg (27.0-35.0) Mean Corpuscular Hemoglobin Concent 29.2% (32.0-37.0) Red Cell Distribution Width 19.4% (12.3-15.4) Platelet Count 307bil/L (150-400) Neutrophils (%) (Auto) 56.4% (40-74) Lymphocytes (%) (Auto) 32.8% (14-46) Monocytes (%) (Auto) 6.0% (4-12) Eosinophils (%) (Auto) 2.2% (0-5) Basophils (%) (Auto) 0.7% (0-3) Erythrocyte Sedimentation Rate 34mm/hr (0-32) Sodium Level 137mEq/L (134-144) Potassium Level 4.4mEq/L (3.5-5.2) Chloride Level 97mEq/L (97-108) Carbon Dioxide Level 24mmol/L (18-29) Blood Urea Nitrogen 10mg/dL (6-24) Creatinine 0.76mg/dL (0.57-1.00) Estimat Glomerular Filtration Rate 118mL/min (>59) Glucose Level 206mg/dL (60-99) Calcium Level 8.4mg/dL (8.5-10.1) Hold [place] Top Tube Received (Received) Re-Eval/Medical Decision Med Decision/Clinical Course 45-year-old female with a history of migraines presents with her typical migraine. There are no ominous or new features. She was treated with her usual medications and is feeling much better. She has plans to follow-up with Dr. hedrick for her Botox injections which helped significantly with her headaches. Re-Evaluation/Progress : Time of Eval: 07:49 )( Patient Status: Condition improved, Pain improved Re-Evaluation/Progress Note: Pt rechecked. Her pain is improved, but she is still uncomfortable. She requests more pain medication and fluid. Counseled Regarding: Diagnosis, Lab results, Need for follow-up, When/why to return to ED Discharge & Departure Impression: Primary Impression: Headache Headache type: unspecified Headache chronicity pattern: unspecified pattern Intractability: not intractable Qualified Code: R51 - Headache Additional Impression: Migraine Migraine type: without aura Status migrainosus presence: without status migrainosus Intractability: not intractable Qualified Code: G43.009 - Migraine without aura, not intractable, without status migrainosus Disposition: Home Discharge Condition All VS Reviewed: Yes Condition: Stable Additional Instructions: Drink plenty of fluids and stay hydrated as dehydration can often increase the severity of migraines. Return to the Emergency Department for any new or worsening symptoms. Follow up with your primary care physician as needed and keep appointment for Botox with Dr. Hedrick. Congratulations on your masters degree! I hope you feel better soon. Referrals: Philip Henriquez MD (PCP) Scribe Attestation Portion of this note were transcribed by Christine Gunderson. I, Dr. Espino, personally performed the history, physical exam, and medical decision-making: I reviewed and confirmed the accuracy for the information in the transcribed note. Signed by: tyshawn Romero, 06/05/16 0800 copies to: Philip Henriquez MD, Gary R DO Jun 05, 2016 06:13 Christine Gunderson Jun 05, 2016 06:21
[2016-06-05] MEDS ORDERED: 0.9% Sodium Chloride 1,000 ML IV ONE ×2 (06:19→07:49)
[2016-06-05] MEDS ORDERED: Dexamethasone 10 mg/mL Inj IVPUSH ONE (06:20)
[2016-06-05] MEDS ORDERED: Ondansetron 2 mg/mL 2 mL Inj IVPUSH ONE (06:20)
[2016-06-05] MEDS ORDERED: Haloperidol 5 mg/mL Inj IVPUSH ONE (06:20)
[2016-06-05 06:55] LABS: BASOPHILS % (AUTO) 0.7 % (0-3); EOSINOPHILS % (AUTO) 2.2 % (0-5); Mean Corpuscular Hemoglobin 23.2 pg (27.0-35.0); Mean Corpuscular Volume 79.3 fL (81-100); NEUTROPHILS % (AUTO) 56.4 % (40-74); Platelet Count 307 bil/L (150-400)
[2016-06-05 07:45] LABS: ERYTHROCYTE SEDIMENTATION RATE 34 mm/hr (0-32)
[2016-06-05] MEDS ORDERED: MetoCLOpramide 5 mg/mL 2 mL Inj IVPUSH ONE (07:50)
[2016-06-05 08:13] VITALS: BP 135/68; PULSE 80; RESP 12; O2SAT 98
== END 2016-06-05 09:50 | disposition home or self-care (01) ==
LOC: SED 06:03
DX: G43.009 Migraine without aura, not intractable, without status migrainosus (principal); I10 Essential (primary) hypertension; J45.909 Unspecified asthma, uncomplicated; E11.40 Type 2 diabetes mellitus with diabetic neuropathy, unspecified; K21.9 Gastro-esophageal reflux disease without esophagitis; M79.7 Fibromyalgia; F31.9 Bipolar disorder, unspecified; Z79.82 Long term (current) use of aspirin; Z79.84 Long term (current) use of oral hypoglycemic drugs; Z87.891 Personal history of nicotine dependence; Z88.1 Allergy status to other antibiotic agents; Z88.2 Allergy status to sulfonamides; Z88.5 Allergy status to narcotic agent; Z88.8 Allergy status to other drugs, medicaments and biological substances; Z91.041 Radiographic dye allergy status
CPT/HCPCS: 36415; 80048; 85025; 85651; 96361; 96374; 96375; 99284; J1100; J1200; J1630; J2405; J2765; J7030

== ENCOUNTER 2016-06-07 06:29 | Emergency (ER) | payer OTHER ==
[~2016-06-07] VITALS: Ht 157.5 cm; Wt 122.7 kg
[2016-06-07 06:34] VITALS: BP 153/94; PULSE 82; RESP 18; O2SAT 99
--- NOTE | 2016-06-07 06:44 | ED.REPORT ---
HPI-Headache Date of Service Jun 07, 2016 ED Provider: Mihaela Hernandez MD This is a 45 year old female with a history of chronic migraines, opioid dependency, fibromyalgia, GERD, asthma, DM, HTN presenting to the emergency department complaining of left sided frontal headache that began 4 hours ago. Woke up from sleep with headache rated at 7/10 that is progressively worsening and is currently rated at 8/10 that is worse with standing. Described as, " feels like my head is in a vice and is going to explode." Associated symptoms include photophobia, sensitivity to sound, nausea, vomiting, and productive cough with yellow sputum. Denies upper or lower extremity numbness, weakness, bowel changes, bladder changes, fever, chills, dizziness or lightheadedness at this time. Pt has multiple ED visits this month with similar presentation. Nursing Notes Stated Complaint: HEADACHE/VOMITING Chief Complaint: Headache Nursing Notes Reviewed: Yes Allergies: Coded Allergies: Contrast Media (Verified Allergy, Unknown, 06/07/16) Sulfa (Sulfonamide Antibiotics) (Verified Allergy, Unknown, 06/07/16) cephalexin (Verified Allergy, Unknown, 06/07/16) ciprofloxacin (Verified Allergy, Unknown, 06/07/16) dihydroergotamine mesylate (Verified Allergy, Unknown, 06/07/16) ether (Verified Allergy, Unknown, 06/07/16) iodine (Verified Allergy, Unknown, 06/07/16) morphine (Verified Allergy, Unknown, 06/07/16) prednisolone (Verified Allergy, Unknown, Causes Severe depression, 06/07/16 ) sumatriptan (Verified Allergy, Unknown, 06/07/16) Scheduled Aspirin Chew (Aspirin Chew) 81 Mg Chew 81 MG PO DAILY Clonidine (Clonidine) 0.2 Mg Tablet 0.4 MG PO BID Doxepin (Doxepin) 100 Mg Capsule 75 MG PO BID Duloxetine (Cymbalta) 30 Mg Capsule.dr 60 MG PO DAILY Hydrocortisone Valerate (Hydrocortisone Valerate) 15 Gm Cream..g. 1 GM TP BID Lamotrigine (Lamotrigine) 200 Mg Tablet 150 MG PO BID Lisinopril (Lisinopril) 20 Mg Tablet 20 MG PO DAILY Loratadine (Claritin) 10 Mg Capsule 10 MG PO DAILY Metformin (Metformin) 500 Mg Tablet 2,000 MG PO BID WITH EVENING MEAL Methocarbamol (Robaxin-750) 750 Mg Tablet 1,500 MG PO [id number] Pantoprazole DR (Protonix) 40 Mg Tablet.dr 40 MG PO DAILY Pregabalin (Lyrica) 100 Mg Capsule 1 TAB PO TID Propranolol ER (Propranolol ER) 160 Mg Cap.sa.24h 160 MG PO BID Simvastatin (Simvastatin) 20 Mg Tablet 20 MG PO HS Zonisamide (Zonisamide) 100 Mg Capsule 100 MG PO HS Scheduled PRN Albuterol HFA (Proair HFA) 8.5 Gm Hfa.aer.ad 2 PUFFS INHALATION Q4H PRN PRN For Shortness of Breath Butalbital/Acetamin/Caff 50-300-40 mg (Fioricet 50-300-40 mg) 1 Each Capsule 1 CAPSULE PO Q4H PRN PRN Headache Epinephrine (Epinephrine) 0.3 Mg/0.3 Ml Auto.injct 0.3 MG IJ PRN For Anaphyllaxis Hydroxyzine Pamoate (Vistaril) 25 Mg Capsule 25 MG PO HS PRN PRN For Insomnia Ketorolac Tromethamine (Ketorolac Tromethamine) 60 Mg/2 Ml Syringe 60 MG IM DAILY PRN PRN For Pain Ondansetron ODT (Zofran ODT) 8 Mg Tablet 8 MG PO Q4H PRN PRN For Nausea Pramipexole Dihydrochloride (Pramipexole Dihydrochloride) 1 Mg Tablet 0.75 MG PO DAILY PRN PRN Restless leg General Time Seen by MD: 06:42 Chief Complaint Headache Hx Obtained From: Patient Arrived By: Walk-in Sudden in Onset?: Yes Onset Occurred: 1 - 4 hours ago Symptom Duration: Since onset Severity: Current: Moderate Pertinent Negative: Pt denies other symptoms Recent Healthcare: No recent hospitalization, Recent doctor visit Similar Sx Previous: Yes Risk-Headache )( IC Mass Risk Stratification RF Statements: No risk factors Past Medical History Past Medical History Notes: Frequent ER visits for headache Dr. Meyers, Neurology [facility], Psychiatric prescriber Past Medical History GERD Chronic depression Chronic migraines opioid Dependency and withdrawal headaches asthma Fibromyalgia Neuropathy 85% deaf Blind in right eye Morbid Obesity Spinal stenosis Anxiety Bipolar disorder Reports: Asthma, Diabetes mellitus, Gastritis, Hypertension, Peptic ulcer disease Reports: Obesity Past Surgical History Cholecystectomy Appendectomy Hysterectomy Laparoscopy Tonsillectomy Cholecystectomy Sinus Multiple eye surgeries Colonoscopy Family History Reviewed, not relevant Smoking History Former Smoker Social History She reports recent graduation with Masters Counseling degree and successfully quit smoking. She has 4 grandchildren. Lives with son and his and their daughter Alcohol Use: Denies alcohol use Drug Use: Denies drug use Other Social History: Frequent ED visitor, , Local resident Occupation Student Ambulatory Status Cane Review of Systems Constitutional: Denies: Chills, Fever GI: Reports: Nausea, Vomiting, Denies: Abdominal pain, Constipation, Diarrhea Neurologic: Reports: Headache, Denies: Change LOC, Confusion, Dizziness, Lightheaded, Weakness Complete sys rev & neg: except as marked. Respiratory: Reports: Prod cough, yellow, Denies: Shortness of breath Cardiovascular: Denies: Chest pain Physical Exam Initial Vital Signs Vital Signs (First) Date Time Temp Pulse Resp B/P Pulse Ox O2 Delivery O2 Flow Rate FiO2 06/07/16 06:34 37.2 82 18 153/94 99 Room Air Initial VS: Reviewed, Vital signs abnormal ENT: Mucous membranes moist, Conjunctiva normal, No scleral icterus Cardiovascular: Regular rate & rhythm, Heart sounds normal, Intact distal pulses Abdomen / GI: Soft, Non-tender, No guarding, No rebound, No distention Extremities: Vascular intact, Neuro intact, No swelling, No tenderness Skin: Warm, No cyanosis Psychiatric: Mood/affect normal, Behavior normal, Normal thought content General/Constitutional: Awake, Alert Appearance / Presentation: Positive: Obese Diaphoretic Head / Eyes: PERRL, EOMI Neck: Supple, No meningismus, Full range of motion, No swelling, Non-tender, No masses Neurologic: Oriented X3, Speech NL, No motor deficits, No sensory deficits, CN II - XII intact, Cerebellar NL Diminished Breath Sounds: Positive: Decreased bilateral Wheezing / Retractions: Positive: Wheezing expiratory Interpretation & Diagnostics X-Ray Chest Interpretation Chest Xray Interpretation: IMPRESSION: No acute cardiopulmonary findings. Dictated by: Tana Choi M.D. on 06/07/2016 at 8:37 Approved by: Tana Choi M.D. on 06/07/2016 at 8:37 Re-Eval/Medical Decision Med Decision/Clinical Course The patient presents with her usual headache and is neurologically intact. She was treated for migraine can impact and her baseline pain. Additional differential diagnoses considered were meningitis, intracranial bleed, tension headache. Re-Evaluation/Progress : Time of Eval: 09:24 )( Patient Status: Mild relief Counseled Regarding: Diagnosis, Lab results, Need for follow-up, When/why to return to ED Discharge & Departure Impression: Primary Impression: Migraine Migraine type: unspecified Status migrainosus presence: without status migrainosus Intractability: not intractable Qualified Code: G43.909 - Migraine, unspecified, not intractable, without status migrainosus Additional Impression: Chronic cough Disposition: Home Discharge Condition All VS Reviewed: Yes Condition: Stable Patient Instructions: Migraine Headache (ED) Additional Instructions: Your chest x-ray was normal today, you do not have pneumonia. Frequent headaches need to be evaluated by your primary care provider. Seek care with your PCP for further management of your headaches. Return to the emergency department with any new or worsening symptoms such as fever. Referrals: Celina Card (PCP) Scribe Attestation Portions of this note were transcribed by Frank Will. I, Dr. Hernandez personally performed the history, physical exam and medical decision-making; I reviewed and confirmed the accuracy of the information in the transcribed note. Signed by: tyshawn Sorensen. 06/07/2016, 15:00. Mihaela Hernandez MD Jun 07, 2016 06:44 FRANK WILL Jun 07, 2016 06:47
[2016-06-07] MEDS ORDERED: Ketorolac 15 mg/mL Inj IVPUSH ONE (07:30)
[2016-06-07] MEDS ORDERED: Albuterol-Ipratropium 3 mL Inhalation Solution NEB ONE (07:30)
[2016-06-07] MEDS ORDERED: ProchlorPERazine 5 mg/mL 2 mL Inj IVPUSH ONE (07:30)
[2016-06-07] MEDS ORDERED: 0.9% Sodium Chloride 1,000 ML IV ONE (07:30)
[2016-06-07 07:50] VITALS: PULSE 78; RESP 16; O2SAT 97
--- NOTE | 2016-06-07 08:38 | DRSVH ---
PROCEDURE: X-RAY CHEST ONE VIEW, PORTABLE ([id number]) INDICATIONS: cough TECHNIQUE: One view of the chest was acquired. COMPARISON: None. FINDINGS: Surgical changes and devices: None. Lungs and pleura: No pleural effusions or pneumothorax. Lungs are clear. Mediastinum: Mediastinal contours appear normal. Heart size is normal. Bones and chest wall: No suspicious bony lesions. Overlying soft tissues appear unremarkable. IMPRESSION: No acute cardiopulmonary findings. Dictated by: Tana Choi M.D. on 06/07/2016 at 8:37 Approved by: Tana Choi M.D. on 06/07/2016 at 8:37
[2016-06-07] MEDS ORDERED: Valproate Sodium Inj 500 MG in Dextrose 5% 50 ML IV ONE (09:00)
[2016-06-07 10:27] VITALS: BP 158/90; PULSE 76; RESP 20; O2SAT 100
== END 2016-06-07 10:27 | disposition home or self-care (01) ==
LOC: SED 06:29
DX: G43.909 Migraine, unspecified, not intractable, without status migrainosus (principal); R05 Cough; E11.40 Type 2 diabetes mellitus with diabetic neuropathy, unspecified; K21.9 Gastro-esophageal reflux disease without esophagitis; Z87.891 Personal history of nicotine dependence; Z88.1 Allergy status to other antibiotic agents; Z88.2 Allergy status to sulfonamides; Z88.5 Allergy status to narcotic agent; Z88.8 Allergy status to other drugs, medicaments and biological substances; Z91.041 Radiographic dye allergy status
CPT/HCPCS: 71010; 94664; 96361; 96374; 96375; 99284; J0780; J1200; J1885; J7030; J7620

== ENCOUNTER 2016-06-14 08:29 | Emergency (ER) | payer OTHER ==
[~2016-06-14] VITALS: Ht 157.5 cm; Wt 118.2 kg
[2016-06-14 08:32] VITALS: BP 149/90; PULSE 82; RESP 18; O2SAT 100
--- NOTE | 2016-06-14 09:00 | ED.REPORT ---
HPI-Headache Date of Service Jun 14, 2016 ED Provider: Donavan Ervin DO Pt is a 45 y/o female w/ a hx of chronic frequent migraines, NIDDM, HTN, presenting to the ED c/o migraine headache onset this morning at 03:00. This migraine is similar to other migraines she has experienced in the past and she came in today because she believed her Toradol wouldn't help. She c/o associated nausea, vomiting, photophobia. Pt denies numbness, weakness, vision change, speech change. She has been seen for migraine headaches many time in the ED with negative workups. Neurologist: Dr. Meyers Nursing Notes Stated Complaint: SEVERE MIGRAINE,NAUSEA,VOMITTING Chief Complaint: Neuro Symptoms/ Deficits Nursing Notes Reviewed: Yes Allergies: Coded Allergies: Contrast Media (Verified Allergy, Unknown, 06/07/16) Sulfa (Sulfonamide Antibiotics) (Verified Allergy, Unknown, 06/07/16) cephalexin (Verified Allergy, Unknown, 06/07/16) ciprofloxacin (Verified Allergy, Unknown, 06/07/16) dihydroergotamine mesylate (Verified Allergy, Unknown, 06/07/16) ether (Verified Allergy, Unknown, 06/07/16) iodine (Verified Allergy, Unknown, 06/07/16) morphine (Verified Allergy, Unknown, 06/07/16) prednisolone (Verified Allergy, Unknown, Causes Severe depression, 06/07/16 ) sumatriptan (Verified Allergy, Unknown, 06/07/16) Scheduled Aspirin Chew (Aspirin Chew) 81 Mg Chew 81 MG PO DAILY Clonidine (Clonidine) 0.2 Mg Tablet 0.4 MG PO BID Doxepin (Doxepin) 100 Mg Capsule 75 MG PO BID Duloxetine (Cymbalta) 30 Mg Capsule.dr 60 MG PO DAILY Hydrocortisone Valerate (Hydrocortisone Valerate) 15 Gm Cream..g. 1 GM TP BID Lamotrigine (Lamotrigine) 200 Mg Tablet 150 MG PO BID Lisinopril (Lisinopril) 20 Mg Tablet 20 MG PO DAILY Loratadine (Claritin) 10 Mg Capsule 10 MG PO DAILY Metformin (Metformin) 500 Mg Tablet 2,000 MG PO BID WITH EVENING MEAL Methocarbamol (Robaxin-750) 750 Mg Tablet 1,500 MG PO [id number] Pantoprazole DR (Protonix) 40 Mg Tablet.dr 40 MG PO DAILY Pregabalin (Lyrica) 100 Mg Capsule 1 TAB PO TID Propranolol ER (Propranolol ER) 160 Mg Cap.sa.24h 160 MG PO BID Simvastatin (Simvastatin) 20 Mg Tablet 20 MG PO HS Zonisamide (Zonisamide) 100 Mg Capsule 100 MG PO HS Scheduled PRN Albuterol HFA (Proair HFA) 8.5 Gm Hfa.aer.ad 2 PUFFS INHALATION Q4H PRN PRN For Shortness of Breath Butalbital/Acetamin/Caff 50-300-40 mg (Fioricet 50-300-40 mg) 1 Each Capsule 1 CAPSULE PO Q4H PRN PRN Headache Epinephrine (Epinephrine) 0.3 Mg/0.3 Ml Auto.injct 0.3 MG IJ PRN For Anaphyllaxis Hydroxyzine Pamoate (Vistaril) 25 Mg Capsule 25 MG PO HS PRN PRN For Insomnia Ketorolac Tromethamine (Ketorolac Tromethamine) 60 Mg/2 Ml Syringe 60 MG IM DAILY PRN PRN For Pain Ondansetron ODT (Zofran ODT) 8 Mg Tablet 8 MG PO Q4H PRN PRN For Nausea Pramipexole Dihydrochloride (Pramipexole Dihydrochloride) 1 Mg Tablet 0.75 MG PO DAILY PRN PRN Restless leg General Time Seen by MD: 08:57 Chief Complaint Migraine headache Hx Obtained From: Patient Arrived By: Walk-in Sudden in Onset?: No Onset Occurred: 5 - 8 hours ago Symptom Duration: Since onset Location: : Generalized Quality: Painful Severity: Current: Moderate Severity: Maximum: Moderate Recent Healthcare: Previous diagnosis, Prior workup Similar Sx Previous: Yes Past Medical History Past Medical History Notes: Frequent ER visits for headache Dr. Meyers, Neurology [facility], Psychiatric prescriber Past Medical History GERD Chronic depression Chronic migraines opioid Dependency and withdrawal headaches asthma Fibromyalgia Neuropathy 85% deaf Blind in right eye Morbid Obesity Spinal stenosis Anxiety Bipolar disorder Reports: Asthma, Diabetes mellitus, Gastritis, Hypertension, Peptic ulcer disease Reports: Obesity Past Surgical History Cholecystectomy Appendectomy Hysterectomy Laparoscopy Tonsillectomy Cholecystectomy Sinus Multiple eye surgeries Colonoscopy Family History Reviewed, not relevant Smoking History Former Smoker Social History She reports recent graduation with Masters Counseling degree and successfully quit smoking. She has 4 grandchildren. Lives with son and his and their daughter Alcohol Use: Denies alcohol use Drug Use: Denies drug use Other Social History: Frequent ED visitor, , Local resident Occupation Student Ambulatory Status Cane Review of Systems Constitutional: Denies: Chills, Fever Eyes: Reports: Photophobia, Denies: Blurred bilateral GI: Reports: Nausea, Vomiting Neurologic: Reports: Headache, Denies: Focal weakness, Numbness, Slurred speech, Unable to speak, Vision change Complete sys rev & neg: except as marked. Physical Exam Initial Vital Signs Vital Signs (First) Date Time Temp Pulse Resp B/P Pulse Ox O2 Delivery O2 Flow Rate FiO2 06/14/16 08:32 36.4 82 18 149/90 100 06/14/16 12:06 Room Air Initial VS: Reviewed, Vital signs normal ENT: Mucous membranes moist, Conjunctiva normal, No scleral icterus Respiratory: No respiratory distress Cardiovascular: Intact distal pulses Abdomen / GI: Soft, Non-tender Extremities: Vascular intact, Neuro intact, No swelling, No tenderness Skin: Warm, Dry, No cyanosis Psychiatric: Mood/affect normal, Behavior normal, Normal thought content General/Constitutional: Awake, Alert, No acute distress, Cooperative, Not toxic appearing Head / Eyes: Atraumatic, Normocephalic, PERRL Photophobic Neck: Atraumatic, Supple, No meningismus, Full range of motion Neurologic: Oriented X3, Speech NL, No motor deficits, No sensory deficits, CN II - XII intact, Cerebellar NL, Memory NL Re-Eval/Medical Decision Source of Hx: Old records Re-Evaluation/Progress : Time of Eval: 12:00 )( Patient Status: Condition resolved, Complete relief, Pain resolved Re-Evaluation/Progress Note: Pt rechecked. MADRIGAL resolved. Informed pt of plan for treatment. Pt understands and agrees with plan for treatment. F/U and RTER warnings given. All questions addressed. Counseled Regarding: Diagnosis, Need for follow-up, When/why to return to ED Discharge & Departure Impression: Primary Impression: Migraine headache Migraine type: unspecified Status migrainosus presence: without status migrainosus Intractability: not intractable Qualified Code: G43.909 - Migraine, unspecified, not intractable, without status migrainosus Disposition: Home Discharge Condition All VS Reviewed: Yes Condition: Stable Patient Instructions: Migraine Headache (ED) Additional Instructions: Follow-up with your neurologist as planned. Return to ER for any life- threatening emergencies. Referrals: Celina Card (PCP) Deloris Attestation Portions of this note were transcribed by Renato Pang. I, Dr. Ervin personally performed the history, physical exam and medical decision-making; I reviewed and confirmed the accuracy of the information in the transcribed note. Signed by Deloris Hankins, 06/14/16 - 1890 copies to: Celina Card Timothy S DO Jun 14, 2016 09:00 RENATO PANG Jun 14, 2016 09:07
[2016-06-14] MEDS ORDERED: ProchlorPERazine 5 mg/mL 2 mL Inj IVPUSH ONE (09:05)
[2016-06-14] MEDS ORDERED: Valproate Sodium Inj 500 MG in Dextrose 5% 50 ML IV ONE (10:25)
[2016-06-14 12:06] VITALS: BP 144/87; PULSE 79; RESP 16; O2SAT 100
== END 2016-06-14 12:07 | disposition home or self-care (01) ==
LOC: SED 08:29
DX: G43.909 Migraine, unspecified, not intractable, without status migrainosus (principal); J45.909 Unspecified asthma, uncomplicated; I10 Essential (primary) hypertension; K21.9 Gastro-esophageal reflux disease without esophagitis; M79.7 Fibromyalgia; E11.40 Type 2 diabetes mellitus with diabetic neuropathy, unspecified; F31.9 Bipolar disorder, unspecified; Z79.82 Long term (current) use of aspirin; Z79.84 Long term (current) use of oral hypoglycemic drugs; Z87.891 Personal history of nicotine dependence; Z88.1 Allergy status to other antibiotic agents; Z88.2 Allergy status to sulfonamides; Z88.5 Allergy status to narcotic agent; Z88.8 Allergy status to other drugs, medicaments and biological substances; Z91.041 Radiographic dye allergy status
CPT/HCPCS: 96374; 96375; 99284; J0780; J1200; J1885

== ENCOUNTER 2016-06-21 07:25 | Emergency (ER) | payer OTHER ==
[~2016-06-21] VITALS: Ht 157.5 cm; Wt 118.2 kg
[2016-06-21 07:27] VITALS: BP 128/87; PULSE 79; RESP 16; O2SAT 99
--- NOTE | 2016-06-21 07:39 | ED.REPORT ---
HPI-Headache Date of Service Jun 21, 2016 ED Provider: Donavan Ervin DO Pt is a 45 y.o. female with an extensive medical hx including chronic migraines who presents to the ED c/o migraine headache onset 2 days ago. She states it radiates from her left sabianism to the left frontal region. Associated nausea and vomiting. Pt is a frequent ED visitor for migraine headache with 5 visits already this month. She claims that she has an appointment for Botox injection next week, which she receives every 3 months, and that her headaches worsen prior to treatment. She is followed by Dr. Meyers, neurology. Nursing Notes Stated Complaint: HEADACHE Chief Complaint: Headache Nursing Notes Reviewed: Yes Allergies: Coded Allergies: Contrast Media (Verified Allergy, Unknown, 06/07/16) Sulfa (Sulfonamide Antibiotics) (Verified Allergy, Unknown, 06/07/16) cephalexin (Verified Allergy, Unknown, 06/07/16) ciprofloxacin (Verified Allergy, Unknown, 06/07/16) dihydroergotamine mesylate (Verified Allergy, Unknown, 06/07/16) ether (Verified Allergy, Unknown, 06/07/16) iodine (Verified Allergy, Unknown, 06/07/16) morphine (Verified Allergy, Unknown, 06/07/16) prednisolone (Verified Allergy, Unknown, Causes Severe depression, 06/07/16 ) sumatriptan (Verified Allergy, Unknown, 06/07/16) Scheduled Aspirin Chew (Aspirin Chew) 81 Mg Chew 81 MG PO DAILY Clonidine (Clonidine) 0.2 Mg Tablet 0.4 MG PO BID Doxepin (Doxepin) 100 Mg Capsule 75 MG PO BID Duloxetine (Cymbalta) 30 Mg Capsule.dr 60 MG PO DAILY Hydrocortisone Valerate (Hydrocortisone Valerate) 15 Gm Cream..g. 1 GM TP BID Lamotrigine (Lamotrigine) 200 Mg Tablet 150 MG PO BID Lisinopril (Lisinopril) 20 Mg Tablet 20 MG PO DAILY Loratadine (Claritin) 10 Mg Capsule 10 MG PO DAILY Metformin (Metformin) 500 Mg Tablet 2,000 MG PO BID WITH EVENING MEAL Methocarbamol (Robaxin-750) 750 Mg Tablet 1,500 MG PO [id number] Pantoprazole DR (Protonix) 40 Mg Tablet.dr 40 MG PO DAILY Pregabalin (Lyrica) 100 Mg Capsule 1 TAB PO TID Propranolol ER (Propranolol ER) 160 Mg Cap.sa.24h 160 MG PO BID Simvastatin (Simvastatin) 20 Mg Tablet 20 MG PO HS Zonisamide (Zonisamide) 100 Mg Capsule 100 MG PO HS Scheduled PRN Albuterol HFA (Proair HFA) 8.5 Gm Hfa.aer.ad 2 PUFFS INHALATION Q4H PRN PRN For Shortness of Breath Butalbital/Acetamin/Caff 50-300-40 mg (Fioricet 50-300-40 mg) 1 Each Capsule 1 CAPSULE PO Q4H PRN PRN Headache Epinephrine (Epinephrine) 0.3 Mg/0.3 Ml Auto.injct 0.3 MG IJ PRN For Anaphyllaxis Hydroxyzine Pamoate (Vistaril) 25 Mg Capsule 25 MG PO HS PRN PRN For Insomnia Ketorolac Tromethamine (Ketorolac Tromethamine) 60 Mg/2 Ml Syringe 60 MG IM DAILY PRN PRN For Pain Ondansetron ODT (Zofran ODT) 8 Mg Tablet 8 MG PO Q4H PRN PRN For Nausea Pramipexole Dihydrochloride (Pramipexole Dihydrochloride) 1 Mg Tablet 0.75 MG PO DAILY PRN PRN Restless leg General Time Seen by MD: 07:39 Chief Complaint Migraine headache Hx Obtained From: Patient Arrived By: Walk-in Sudden in Onset?: Yes Onset Occurred: 2 days ago Symptom Duration: Since onset Location: : Frontal left: Temporal left Quality: Painful Severity: Current: Severe Severity: Maximum: Severe Similar Sx Previous: Yes Past Medical History Past Medical History Notes: Frequent ER visits for headache Dr. Meyers, Neurology [facility], Psychiatric prescriber Past Medical History GERD Chronic depression Chronic migraines opioid Dependency and withdrawal headaches asthma Fibromyalgia Neuropathy 85% deaf Blind in right eye Morbid Obesity Spinal stenosis Anxiety Bipolar disorder Reports: Asthma, Diabetes mellitus, Gastritis, Hypertension, Peptic ulcer disease Reports: Obesity Past Surgical History Cholecystectomy Appendectomy Hysterectomy Laparoscopy Tonsillectomy Cholecystectomy Sinus Multiple eye surgeries Colonoscopy Family History Reviewed, not relevant Smoking History Former Smoker Social History She reports recent graduation with Masters Counseling degree and successfully quit smoking. She has 4 grandchildren. Lives with son and his and their daughter Alcohol Use: Denies alcohol use Drug Use: Denies drug use Other Social History: Frequent ED visitor, , Local resident Occupation Student Ambulatory Status Cane Review of Systems GI: Reports: Nausea, Vomiting Neurologic: Reports: Headache Complete sys rev & neg: except as marked. Physical Exam Initial Vital Signs Vital Signs (First) Date Time Temp Pulse Resp B/P Pulse Ox O2 Delivery O2 Flow Rate FiO2 06/21/16 07:27 36.6 79 16 128/87 99 Room Air Initial VS: Reviewed Respiratory: Breath sounds normal, No respiratory distress Cardiovascular: Regular rate & rhythm, Intact distal pulses Abdomen / GI: No distention Extremities: Vascular intact, Neuro intact Skin: Warm, Dry, No cyanosis Psychiatric: Mood/affect normal, Behavior normal, Normal thought content General/Constitutional: Awake, Alert, Well appearing, Well developed, Well hydrated, Well nourished, Not toxic appearing Appearance / Presentation: Positive: Uncomfortable Pt is [place] and reads lips Head / Eyes: Atraumatic, Normocephalic Neck: Atraumatic Neurologic: Oriented X3, Speech NL, No motor deficits Re-Eval/Medical Decision Med Decision/Clinical Course Headache similar to prior headaches without high-risk features. Patient feels better after medications and will be discharged. Return precautions given Source of Hx: Old records Re-Evaluation/Progress : Time of Eval: 10:18 )( Patient Status: Pain improved Re-Evaluation/Progress Note: Pt rechecked. Pt states pain is improved. Discussed plan for discharge, pt understands and agrees with plan. Counseled Regarding: Diagnosis, Need for follow-up, When/why to return to ED Discharge & Departure Impression: Primary Impression: Migraine Disposition: Home Discharge Condition All VS Reviewed: Yes Condition: Improved Additional Instructions: Follow-up with Dr. Meyers as planned for your migraines. Return to the ER as needed for concerning symptoms. Referrals: Celina Card (PCP) Rodolfoibestela Attestation Portions of this note were transcribed by Jose Perez. I, Dr. Ervin personally performed the history, physical exam and medical decision-making; I reviewed and confirmed the accuracy of the information in the transcribed note. Signed by: Deloris Bueno, 06/21/16 and 1021. copies to: Celina Card; Dread Meyers MD, Timothy S DO Jun 21, 2016 07:39 JOSE PEREZ Jun 21, 2016 07:54
[2016-06-21] MEDS ORDERED: Valproate Sodium Inj 500 MG in Dextrose 5% 50 ML IV ONE (08:00)
[2016-06-21] MEDS ORDERED: Ketorolac 15 mg/mL Inj IVPUSH ONE (08:00)
[2016-06-21] MEDS ORDERED: Ondansetron 2 mg/mL 2 mL Inj IVPUSH ONE (08:00)
[2016-06-21 10:49] VITALS: BP 126/86; PULSE 76; RESP 20; O2SAT 99
== END 2016-06-21 10:46 | disposition home or self-care (01) ==
LOC: SED 07:25
DX: G43.909 Migraine, unspecified, not intractable, without status migrainosus (principal); K21.9 Gastro-esophageal reflux disease without esophagitis; J45.909 Unspecified asthma, uncomplicated; H91.90 Unspecified hearing loss, unspecified ear; H54.41 Blindness, right eye, normal vision left eye; E66.01 Morbid (severe) obesity due to excess calories; E11.9 Type 2 diabetes mellitus without complications; K29.70 Gastritis, unspecified, without bleeding; I10 Essential (primary) hypertension; Z87.11 Personal history of peptic ulcer disease; Z87.891 Personal history of nicotine dependence; Z68.42 Body mass index [BMI] 45.0-49.9, adult; Z79.82 Long term (current) use of aspirin; Z79.84 Long term (current) use of oral hypoglycemic drugs; Z91.041 Radiographic dye allergy status; Z88.2 Allergy status to sulfonamides; Z88.1 Allergy status to other antibiotic agents; Z88.6 Allergy status to analgesic agent; Z88.5 Allergy status to narcotic agent; Z88.8 Allergy status to other drugs, medicaments and biological substances
CPT/HCPCS: 96361; 96374; 96375; 99284; J1200; J1885; J2405

== ENCOUNTER 2016-06-24 01:49 | Emergency (ER) | payer OTHER ==
[~2016-06-24] VITALS: Ht 157.5 cm; Wt 115.9 kg
[2016-06-24 01:55] VITALS: BP 146/89; PULSE 73; RESP 16; O2SAT 99
--- NOTE | 2016-06-24 02:19 | ED.REPORT ---
HPI-General Illness Date of Service Jun 24, 2016 ED Provider: Logan Beck MD 45 year old female with a history of opioid dependency and withdrawal headaches presents to the ER complaining of dental pain status post tooth extraction yesterday. She also reports that the dental pain has exacerbated her chronic migraines. Per patient, she was prescribed Tylenol following the extraction. Patient is well known to us here in the department. Nursing Notes Stated Complaint: TOOTH PAIN,HEADACHE, VOMITING Chief Complaint: Dental Nursing Notes Reviewed: Yes Allergies: Coded Allergies: Contrast Media (Verified Allergy, Unknown, 06/07/16) Sulfa (Sulfonamide Antibiotics) (Verified Allergy, Unknown, 06/07/16) cephalexin (Verified Allergy, Unknown, 06/07/16) ciprofloxacin (Verified Allergy, Unknown, 06/07/16) dihydroergotamine mesylate (Verified Allergy, Unknown, 06/24/16) ether (Verified Allergy, Unknown, 06/24/16) iodine (Verified Allergy, Unknown, 06/24/16) morphine (Verified Allergy, Unknown, 06/24/16) prednisolone (Verified Allergy, Unknown, Causes Severe depression, 06/24/16 ) sumatriptan (Verified Allergy, Unknown, 06/24/16) Scheduled Aspirin Chew (Aspirin Chew) 81 Mg Chew 81 MG PO DAILY Clonidine (Clonidine) 0.2 Mg Tablet 0.4 MG PO BID Doxepin (Doxepin) 100 Mg Capsule 75 MG PO BID Duloxetine (Cymbalta) 30 Mg Capsule.dr 60 MG PO DAILY Hydrocortisone Valerate (Hydrocortisone Valerate) 15 Gm Cream..g. 1 GM TP BID Lamotrigine (Lamotrigine) 200 Mg Tablet 150 MG PO BID Lisinopril (Lisinopril) 20 Mg Tablet 20 MG PO DAILY Loratadine (Claritin) 10 Mg Capsule 10 MG PO DAILY Metformin (Metformin) 500 Mg Tablet 2,000 MG PO BID WITH EVENING MEAL Methocarbamol (Robaxin-750) 750 Mg Tablet 1,500 MG PO [id number] Pantoprazole DR (Protonix) 40 Mg Tablet.dr 40 MG PO DAILY Pregabalin (Lyrica) 100 Mg Capsule 1 TAB PO TID Propranolol ER (Propranolol ER) 160 Mg Cap.sa.24h 160 MG PO BID Simvastatin (Simvastatin) 20 Mg Tablet 20 MG PO HS Zonisamide (Zonisamide) 100 Mg Capsule 100 MG PO HS Scheduled PRN Albuterol HFA (Proair HFA) 8.5 Gm Hfa.aer.ad 2 PUFFS INHALATION Q4H PRN PRN For Shortness of Breath Butalbital/Acetamin/Caff 50-300-40 mg (Fioricet 50-300-40 mg) 1 Each Capsule 1 CAPSULE PO Q4H PRN PRN Headache Epinephrine (Epinephrine) 0.3 Mg/0.3 Ml Auto.injct 0.3 MG IJ PRN For Anaphyllaxis Hydroxyzine Pamoate (Vistaril) 25 Mg Capsule 25 MG PO HS PRN PRN For Insomnia Ketorolac Tromethamine (Ketorolac Tromethamine) 60 Mg/2 Ml Syringe 60 MG IM DAILY PRN PRN For Pain Ondansetron ODT (Zofran ODT) 8 Mg Tablet 8 MG PO Q4H PRN PRN For Nausea Pramipexole Dihydrochloride (Pramipexole Dihydrochloride) 1 Mg Tablet 0.75 MG PO DAILY PRN PRN Restless leg General Time Seen by MD: 02:18 Chief Complaint Other (Dental Pain) Hx Obtained From: Patient Arrived By: Walk-in Sudden in Onset?: No Onset Occurred: Yesterday Symptom Duration: Since onset Location: : Mouth Quality: Painful Severity: Current: Moderate Severity: Maximum: Moderate Associated with: Reports: Headache Recent Healthcare: Recent doctor visit Past Medical History Past Medical History Notes: Frequent ER visits for headache Dr. Meyers, Neurology [facility], Psychiatric prescriber Past Medical History GERD Chronic depression Chronic migraines opioid Dependency and withdrawal headaches asthma Fibromyalgia Neuropathy 85% deaf Blind in right eye Morbid Obesity Spinal stenosis Anxiety Bipolar disorder Reports: Asthma, Diabetes mellitus, Gastritis, Hypertension, Peptic ulcer disease Reports: Obesity Past Surgical History Cholecystectomy Appendectomy Hysterectomy Laparoscopy Tonsillectomy Cholecystectomy Sinus Multiple eye surgeries Colonoscopy Family History Reviewed, not relevant Smoking History Former Smoker Social History She reports recent graduation with Masters Counseling degree and successfully quit smoking. She has 4 grandchildren. Lives with son and his and their daughter Alcohol Use: Denies alcohol use Drug Use: Denies drug use Other Social History: Frequent ED visitor, , Local resident Occupation Student Ambulatory Status Cane Review of Systems Full Review of Systems Constitutional: Denies: Chills, Fever Ears / Nose / Throat: Reports: Mouth pain, Toothache GI: Denies: Diarrhea, Vomiting Musculoskeletal: Denies: Neck pain Neurologic: Reports: Headache Complete sys rev & neg: except as marked. Physical Exam Vital Signs Vital Signs Date Time Temp Pulse Resp B/P Pulse Ox O2 Delivery O2 Flow Rate FiO2 06/24/16 03:00 72 19 141/83 97 Room Air 06/24/16 01:55 36.4 73 16 146/89 99 Room Air Initial VS: Reviewed Neck: Supple, Non-tender, Full range of motion Respiratory: Breath sounds normal, Clear to auscultation, No respiratory distress Cardiovascular: Regular rate & rhythm, Heart sounds normal, Intact distal pulses Extremities: Vascular intact, Neuro intact, No swelling, No tenderness Skin: Warm, Dry, No cyanosis Neurologic: Alert, Oriented, Nonfocal Psychiatric: Mood/affect normal, Behavior normal, Normal thought content General/Constitutional: Awake, Alert, Well hydrated Appearance / Presentation: Positive: Obese, morbidly Head / Eyes: Atraumatic, Normocephalic ENT: Airway patent, Mucous membranes moist Multiple carious teeth, upper right. Clean extraction site. Re-Eval/Medical Decision Med Decision/Clinical Course 45-year-old presents with dental pain contributing to migraine. Improved with Toradol and Haldol. Discharged in stable condition. Time of Eval: 02:34 Re-Evaluation/Progress Note: Discussed physical examination findings and plan to discharge. Patient is amenable to the plan. Return precautions given. All other questions addressed. Counseled Regarding: Diagnosis, Need for follow-up, When/why to return to ED Discharge & Departure Primary Impression: Toothache Additional Impression: Migraine Migraine type: without aura Status migrainosus presence: without status migrainosus Intractability: not intractable Qualified Code: G43.009 - Migraine without aura, not intractable, without status migrainosus Disposition: Home Discharge Condition All VS Reviewed: Yes Condition: Stable Patient Instructions: Dental Caries (ED) Additional Instructions: Continue your current prescribed meds. May use ibuprofen if needed for dental pain. Follow-up with your dentist. Referrals: Celina Card (PCP) Scribe Attestation Portions of this note were transcribed by Hugo Maurice. I, Dr. Beck, personally performed the history, physical exam and medical decision-making; I reviewed and confirmed the accuracy of the information in the transcribed note. Signed by: Deloris Velez. 06/24/2016 - 02:45 copies to: Celina Card Christopher W MD Jun 24, 2016 02:19 HUGO MAURICE Jun 24, 2016 02:28
[2016-06-24] MEDS ORDERED: Haloperidol 5 mg/mL Inj IM PRN (02:25)
[2016-06-24 03:00] VITALS: BP 141/83; PULSE 72; RESP 19; O2SAT 97
--- NOTE | 2016-06-24 14:04 | NUR ---
Social Work note - ANSELMO follow up RESERVE OPERATOR called Teri Paul at home - Pt states that she has been into the ED 7 times in May - mainly for migraines and headaches. She states that she saw her PCP on Thursday 06/22 mainly for GI issues and Rx refills. She believes that her headache pain is because it is time for her to have botox from Dr Meyers. She is scheduled to see Dr Meyers on July 06 but she said that she calls the neurologist daily to see if there is a cancellation. Pt states that she has been referred to Mariann Correa for GI specialist - she is working to get transportation to the appointment - not sure when her appointment will be. RESERVE OPERATOR provided support and education - encouraged her to use alternative stress, meditation, journaling, crafts as a way of relaxation. RESERVE OPERATOR updated ANSELMO - will continue to follow. QI Ramirez
== END 2016-06-24 03:01 | disposition home or self-care (01) ==
LOC: SED 01:49
DX: K08.89 Other specified disorders of teeth and supporting structures (principal); G43.009 Migraine without aura, not intractable, without status migrainosus; K21.9 Gastro-esophageal reflux disease without esophagitis; J45.909 Unspecified asthma, uncomplicated; F31.9 Bipolar disorder, unspecified; I10 Essential (primary) hypertension; E11.9 Type 2 diabetes mellitus without complications; M79.7 Fibromyalgia; Z98.818 Other dental procedure status; Z79.82 Long term (current) use of aspirin; Z79.84 Long term (current) use of oral hypoglycemic drugs
CPT/HCPCS: 90791; 96372; 99284; J1630; J1885

== ENCOUNTER 2016-07-10 08:24 | Emergency (ER) | payer OTHER ==
[~2016-07-10] VITALS: Ht 157.5 cm; Wt 113.6 kg
[2016-07-10 08:27] VITALS: BP 195/101; PULSE 83; RESP 24; O2SAT 99
[2016-07-10] MEDS ORDERED: 0.9% Sodium Chloride 1,000 ML IV ONE ×2 (08:29→10:30)
[2016-07-10] MEDS ORDERED: Ondansetron 2 mg/mL 2 mL Inj IVPUSH ONE (08:30)
[2016-07-10] MEDS ORDERED: Promethazine Inj 50 MG in 0.9% Sodium Chloride-Pha MIX 100 ML IV ONE (08:30)
[2016-07-10] MEDS ORDERED: Haloperidol 5 mg/mL Inj IVPUSH ONE (08:30)
--- NOTE | 2016-07-10 08:31 | ED.REPORT ---
HPI-Headache Date of Service Jul 10, 2016 ED Provider: Eunice King MD 45 year old female with a history of chronic migraines and opioid dependency and withdrawal headaches presents to the ER accompanied by her [id number] complaining of 24 hours of headache. Associated symptoms include nausea and vomiting. She has taken her regular blood pressure medications this morning. Symptoms are similar to her typical migraines. Patient is well known to us here in the department. Nursing Notes Stated Complaint: NAUSEA/MIGRAINE Chief Complaint: Headache Nursing Notes Reviewed: Yes Allergies: Coded Allergies: Contrast Media (Verified Allergy, Unknown, 06/07/16) Sulfa (Sulfonamide Antibiotics) (Verified Allergy, Unknown, 06/07/16) cephalexin (Verified Allergy, Unknown, 06/07/16) ciprofloxacin (Verified Allergy, Unknown, 06/07/16) dihydroergotamine mesylate (Verified Allergy, Unknown, 06/24/16) ether (Verified Allergy, Unknown, 06/24/16) iodine (Verified Allergy, Unknown, 06/24/16) morphine (Verified Allergy, Unknown, 06/24/16) prednisolone (Verified Allergy, Unknown, Causes Severe depression, 06/24/16 ) sumatriptan (Verified Allergy, Unknown, 06/24/16) Scheduled Aspirin Chew (Aspirin Chew) 81 Mg Chew 81 MG PO DAILY Clonidine (Clonidine) 0.2 Mg Tablet 0.4 MG PO BID Doxepin (Doxepin) 100 Mg Capsule 75 MG PO BID Duloxetine (Cymbalta) 30 Mg Capsule.dr 60 MG PO DAILY Hydrocortisone Valerate (Hydrocortisone Valerate) 15 Gm Cream..g. 1 GM TP BID Lamotrigine (Lamotrigine) 200 Mg Tablet 150 MG PO BID Lisinopril (Lisinopril) 20 Mg Tablet 20 MG PO DAILY Loratadine (Claritin) 10 Mg Capsule 10 MG PO DAILY Metformin (Metformin) 500 Mg Tablet 2,000 MG PO BID WITH EVENING MEAL Methocarbamol (Robaxin-750) 750 Mg Tablet 1,500 MG PO [id number] Pantoprazole DR (Protonix) 40 Mg Tablet.dr 40 MG PO DAILY Pregabalin (Lyrica) 100 Mg Capsule 1 TAB PO TID Propranolol ER (Propranolol ER) 160 Mg Cap.sa.24h 160 MG PO BID Simvastatin (Simvastatin) 20 Mg Tablet 20 MG PO HS Zonisamide (Zonisamide) 100 Mg Capsule 100 MG PO HS Scheduled PRN Albuterol HFA (Proair HFA) 8.5 Gm Hfa.aer.ad 2 PUFFS INHALATION Q4H PRN PRN For Shortness of Breath Butalbital/Acetamin/Caff 50-300-40 mg (Fioricet 50-300-40 mg) 1 Each Capsule 1 CAPSULE PO Q4H PRN PRN Headache Epinephrine (Epinephrine) 0.3 Mg/0.3 Ml Auto.injct 0.3 MG IJ PRN For Anaphyllaxis Hydroxyzine Pamoate (Vistaril) 25 Mg Capsule 25 MG PO HS PRN PRN For Insomnia Ketorolac Tromethamine (Ketorolac Tromethamine) 60 Mg/2 Ml Syringe 60 MG IM DAILY PRN PRN For Pain Ondansetron ODT (Zofran ODT) 8 Mg Tablet 8 MG PO Q4H PRN PRN For Nausea Pramipexole Dihydrochloride (Pramipexole Dihydrochloride) 1 Mg Tablet 0.75 MG PO DAILY PRN PRN Restless leg General Time Seen by MD: 08:31 Chief Complaint Migraine headache Hx Obtained From: Patient Arrived By: Walk-in Sudden in Onset?: No Onset Occurred: Yesterday Symptom Duration: Since onset Location: : Generalized Quality: Painful Severity: Current: Moderate Severity: Maximum: Moderate Associated with: Reports: Nausea, Vomiting Pertinent Negative: Pt denies other symptoms Related History: Reports: Headache, migraine hx Recent Healthcare: Recent doctor visit Similar Sx Previous: Yes Past Medical History Past Medical History Notes: Frequent ER visits for headache Dr. Meyers, Neurology [facility], Psychiatric prescriber Past Medical History GERD Chronic depression Chronic migraines opioid Dependency and withdrawal headaches asthma Fibromyalgia Neuropathy 85% deaf Blind in right eye Morbid Obesity Spinal stenosis Anxiety Bipolar disorder Reports: Asthma, Diabetes mellitus, Gastritis, Hypertension, Peptic ulcer disease Reports: Obesity Past Surgical History Cholecystectomy Appendectomy Hysterectomy Laparoscopy Tonsillectomy Cholecystectomy Sinus Multiple eye surgeries Colonoscopy Family History Reviewed, not relevant Smoking History Current Every Day Smoker Social History She reports recent graduation with Masters Counseling degree and successfully quit smoking. She has 4 grandchildren. Lives with son and his and their daughter Alcohol Use: Denies alcohol use Drug Use: Denies drug use Other Social History: Frequent ED visitor, , Local resident Occupation Student Ambulatory Status Cane Review of Systems Constitutional: Denies: Chills, Fever Eyes: Denies: Blurred bilateral, Diplopia, Visual loss bilateral GI: Reports: Nausea, Vomiting Musculoskeletal: Denies: Back pain, Lumbar pain, Neck pain Neurologic: Reports: Headache, Denies: Confusion, Focal weakness, Numbness, Syncope, Weakness Complete sys rev & neg: except as marked. Physical Exam Initial Vital Signs Vital Signs (First) Date Time Temp Pulse Resp B/P Pulse Ox O2 Delivery O2 Flow Rate FiO2 07/10/16 08:27 36.1 83 24 195/101 99 Room Air Initial VS: Reviewed Abdomen / GI: Soft, Non-tender, No guarding, No rebound, No distention Extremities: Vascular intact, Neuro intact, No swelling, No tenderness Skin: Warm, Dry, No cyanosis General/Constitutional: Awake, Alert, Well developed Appearance / Presentation: Positive: Obese Head / Eyes: Atraumatic, Normocephalic Neck: Atraumatic, Supple, Full range of motion, Non-tender Neurologic: Oriented X3, Speech NL, No motor deficits, No sensory deficits, CN II - XII intact Respiratory / Chest: Breath sounds NL, Breath sounds = bilat, No respiratory distress, No rales, No rhonchi, No wheezing Cardiovascular: Heart rate NL, Regular rhythm, Heart sounds NL, Peripheral circulation NL Interpretation & Diagnostics Lab Results Interpretation Test 07/10/16 08:50 Hold Purple Top Tube Received (Received) Hold Blue Top Tube Received (Received) Hold [place] Top Tube Received (Received) Re-Eval/Medical Decision Re-Evaluation/Progress : Time of Eval: 08:40 Re-Evaluation/Progress Note: Discussed physical examination findings and plan to discharge. Patient is amenable to the plan. Return precautions given. All other questions addressed. Counseled Regarding: Diagnosis, Lab results, Need for follow-up, When/why to return to ED Discharge & Departure Impression: Primary Impression: Migraine Disposition: Home Discharge Condition All VS Reviewed: Yes Condition: Stable Patient Instructions: Migraine Headache (DC) Additional Instructions: It appears that you are having one of your typical migraines today. We controlled your pain here in the ER. Please think about what it will take for you to stop smoking. Return to the ER if you develop any worsening or concerning symptoms. good luck with classes this semester. Referrals: Celina Card (PCP) Scribe Attestation Portions of this note were transcribed by Hugo Maurice. I, Dr. King, personally performed the history, physical exam and medical decision-making; I reviewed and confirmed the accuracy of the information in the transcribed note. Signed by: Deloris Velez, 07/10/2016 at 10:40 copies to: Celina Card Shawna L MD Jul 10, 2016 08:31 HUGO MAURICE Jul 10, 2016 08:40 Eunice King MD Jul 10, 2016 08:31 HUGO MAURICE Jul 10, 2016 08:40
[2016-07-10 11:06] VITALS: BP 177/108; PULSE 85; RESP 12; O2SAT 98
== END 2016-07-10 11:08 | disposition home or self-care (01) ==
LOC: SED 08:24
DX: G43.909 Migraine, unspecified, not intractable, without status migrainosus (principal); F11.23 Opioid dependence with withdrawal; J45.909 Unspecified asthma, uncomplicated; E11.40 Type 2 diabetes mellitus with diabetic neuropathy, unspecified; Z90.710 Acquired absence of both cervix and uterus; F17.200 Nicotine dependence, unspecified, uncomplicated; Z79.82 Long term (current) use of aspirin; Z79.84 Long term (current) use of oral hypoglycemic drugs; Z79.899 Other long term (current) drug therapy; Z88.1 Allergy status to other antibiotic agents; Z88.2 Allergy status to sulfonamides; Z88.5 Allergy status to narcotic agent; Z88.8 Allergy status to other drugs, medicaments and biological substances; Z91.041 Radiographic dye allergy status
CPT/HCPCS: 96361; 96374; 96375; 99284; J1200; J1630; J1885; J2405; J2550; J7030

== ENCOUNTER 2016-07-15 16:19 | Emergency (ER) | payer OTHER ==
[~2016-07-15] VITALS: Ht 157.5 cm; Wt 120.5 kg
[2016-07-15 16:28] VITALS: BP 157/82; PULSE 90; RESP 16; O2SAT 97
[2016-07-15] MEDS ORDERED: 0.9% Sodium Chloride 1,000 ML IV ONE (17:45)
[2016-07-15] MEDS ORDERED: Ketorolac 15 mg/mL Inj IVPUSH ONE (17:45)
[2016-07-15] MEDS ORDERED: MetoCLOpramide 5 mg/mL 2 mL Inj IVPUSH ONE (17:45)
--- NOTE | 2016-07-15 17:46 | ED.REPORT ---
HPI-Headache Date of Service Jul 15, 2016 ED Provider: Donavan Ervin DO 45 year old female with a history of chronic migraines and opioid dependency and withdrawal headaches presents to the ER via EMS from urgent care with a headache that has been present for 10 days. Pt states that this is the same as previous headaches. Urgent care was concerned due to elevated BP of 157/88. Pt has taken Fioricet without relief. Nursing Notes Stated Complaint: HEADACHE Chief Complaint: Headache Nursing Notes Reviewed: Yes Allergies: Coded Allergies: Contrast Media (Verified Allergy, Unknown, 06/07/16) Sulfa (Sulfonamide Antibiotics) (Verified Allergy, Unknown, 06/07/16) cephalexin (Verified Allergy, Unknown, 06/07/16) ciprofloxacin (Verified Allergy, Unknown, 06/07/16) dihydroergotamine mesylate (Verified Allergy, Unknown, 06/24/16) ether (Verified Allergy, Unknown, 06/24/16) iodine (Verified Allergy, Unknown, 06/24/16) morphine (Verified Allergy, Unknown, 06/24/16) prednisolone (Verified Allergy, Unknown, Causes Severe depression, 06/24/16 ) sumatriptan (Verified Allergy, Unknown, 06/24/16) Scheduled Aspirin Chew (Aspirin Chew) 81 Mg Chew 81 MG PO DAILY Clonidine (Clonidine) 0.2 Mg Tablet 0.4 MG PO BID Doxepin (Doxepin) 100 Mg Capsule 75 MG PO BID Duloxetine (Cymbalta) 30 Mg Capsule.dr 60 MG PO DAILY Hydrocortisone Valerate (Hydrocortisone Valerate) 15 Gm Cream..g. 1 GM TP BID Lamotrigine (Lamotrigine) 200 Mg Tablet 150 MG PO BID Lisinopril (Lisinopril) 20 Mg Tablet 20 MG PO DAILY Loratadine (Claritin) 10 Mg Capsule 10 MG PO DAILY Metformin (Metformin) 500 Mg Tablet 2,000 MG PO BID WITH EVENING MEAL Methocarbamol (Robaxin-750) 750 Mg Tablet 1,500 MG PO [id number] Pantoprazole DR (Protonix) 40 Mg Tablet.dr 40 MG PO DAILY Pregabalin (Lyrica) 100 Mg Capsule 1 TAB PO TID Propranolol ER (Propranolol ER) 160 Mg Cap.sa.24h 160 MG PO BID Simvastatin (Simvastatin) 20 Mg Tablet 20 MG PO HS Zonisamide (Zonisamide) 100 Mg Capsule 100 MG PO HS Scheduled PRN Albuterol HFA (Proair HFA) 8.5 Gm Hfa.aer.ad 2 PUFFS INHALATION Q4H PRN PRN For Shortness of Breath Butalbital/Acetamin/Caff 50-300-40 mg (Fioricet 50-300-40 mg) 1 Each Capsule 1 CAPSULE PO Q4H PRN PRN Headache Epinephrine (Epinephrine) 0.3 Mg/0.3 Ml Auto.injct 0.3 MG IJ PRN For Anaphyllaxis Hydroxyzine Pamoate (Vistaril) 25 Mg Capsule 25 MG PO HS PRN PRN For Insomnia Ketorolac Tromethamine (Ketorolac Tromethamine) 60 Mg/2 Ml Syringe 60 MG IM DAILY PRN PRN For Pain Ondansetron ODT (Zofran ODT) 8 Mg Tablet 8 MG PO Q4H PRN PRN For Nausea Pramipexole Dihydrochloride (Pramipexole Dihydrochloride) 1 Mg Tablet 0.75 MG PO DAILY PRN PRN Restless leg General Time Seen by MD: 17:34 Chief Complaint Headache Hx Obtained From: Patient, EMS Arrived By: Ambulance Sudden in Onset?: No Onset Occurred: More than a week ago... Symptom Duration: Since onset Location: : Generalized Quality: Painful Severity: Current: Severe Recent Healthcare: Recent doctor visit Similar Sx Previous: Yes Past Medical History Past Medical History Notes: Frequent ER visits for headache Dr. Meyers, Neurology [facility], Psychiatric prescriber Past Medical History GERD Chronic depression Chronic migraines opioid Dependency and withdrawal headaches asthma Fibromyalgia Neuropathy 85% deaf Blind in right eye Morbid Obesity Spinal stenosis Anxiety Bipolar disorder Reports: Asthma, Diabetes mellitus, Gastritis, Hypertension, Peptic ulcer disease Reports: Obesity Past Surgical History Cholecystectomy Appendectomy Hysterectomy Laparoscopy Tonsillectomy Cholecystectomy Sinus Multiple eye surgeries Colonoscopy Family History Reviewed, not relevant Smoking History Current Every Day Smoker Social History She reports recent graduation with Masters Counseling degree and successfully quit smoking. She has 4 grandchildren. Lives with son and his and their daughter Alcohol Use: Denies alcohol use Drug Use: Denies drug use Other Social History: Frequent ED visitor, , Local resident Occupation Student Ambulatory Status Cane Review of Systems Basic Review of Systems Respiratory: No shortness of breath, No cough, No wheeze Cardiovascular: No chest pain, No dyspnea on exertion, No orthopnea, No parox noct dyspnea, No palpitations Constitutional: Denies: Fever GI: Denies: Nausea, Vomiting Neurologic: Reports: Headache Complete sys rev & neg: except as marked. Physical Exam Initial Vital Signs Vital Signs (First) Date Time Temp Pulse Resp B/P Pulse Ox O2 Delivery O2 Flow Rate FiO2 07/15/16 16:28 37.0 90 16 157/82 97 Room Air Initial VS: Reviewed ENT: Mucous membranes moist, Conjunctiva normal, No scleral icterus Respiratory: Breath sounds normal, Clear to auscultation, No respiratory distress Cardiovascular: Regular rate & rhythm, Heart sounds normal, Intact distal pulses Extremities: Vascular intact, Neuro intact, No swelling, No tenderness Skin: Warm, Dry, No cyanosis Psychiatric: Mood/affect normal, Behavior normal, Normal thought content General/Constitutional: Awake, Alert, No acute distress Head / Eyes: Atraumatic, Normocephalic, PERRL, EOMI Neck: Supple, Full range of motion Neurologic: Oriented X3, Speech NL, No motor deficits Re-Eval/Medical Decision Re-Evaluation/Progress : Time of Eval: 18:55 Re-Evaluation/Progress Note: Pt feels much improved. Awaiting IV fluids. Pt agrees with plan for d/c home. All questions addressed. Counseled Regarding: Diagnosis, Need for follow-up, When/why to return to ED Discharge & Departure Impression: Primary Impression: Headache Headache type: unspecified Headache chronicity pattern: chronic headache Intractability: not intractable Qualified Code: R51 - Headache Disposition: Home Discharge Condition All VS Reviewed: Yes Condition: Stable Additional Instructions: Call Dr. Meyers tomorrow to schedule a follow up. Return to the ER as needed if worse. Referrals: Celina Card (PCP) Dread Meyers MD Attestation Portions of this note were transcribed by Bailey Mann. I, (Dr. Ervin) personally performed the history, physical exam and medical decision-making; I reviewed and confirmed the accuracy of the information in the transcribed note. Signed by: Bailey Mann. Deloris, 07/15/2016, 1912 copies to: Celina Card; Dread Meyers MD, Timothy S DO Jul 15, 2016 17:46 Bailey Mann Jul 15, 2016 18:40
[2016-07-15 19:06] VITALS: BP 166/89; PULSE 79; RESP 16; O2SAT 98
== END 2016-07-15 19:07 | disposition home or self-care (01) ==
LOC: SED 16:19
DX: R51 Headache (principal); K21.9 Gastro-esophageal reflux disease without esophagitis; J45.909 Unspecified asthma, uncomplicated; E11.9 Type 2 diabetes mellitus without complications; I10 Essential (primary) hypertension; F17.200 Nicotine dependence, unspecified, uncomplicated; Z91.041 Radiographic dye allergy status; Z88.2 Allergy status to sulfonamides; Z88.8 Allergy status to other drugs, medicaments and biological substances; Z88.5 Allergy status to narcotic agent; Z79.82 Long term (current) use of aspirin; Z79.84 Long term (current) use of oral hypoglycemic drugs
CPT/HCPCS: 96361; 96374; 96375; 99284; J1200; J1885; J2765; J7030

== ENCOUNTER 2016-07-30 21:48 | Emergency (ER) | payer OTHER ==
[~2016-07-30] VITALS: Ht 157.5 cm; Wt 120.0 kg
[2016-07-30 21:58] VITALS: BP 138/96; PULSE 74; RESP 16; O2SAT 97
--- NOTE | 2016-07-30 22:26 | ED.REPORT ---
HPI-Headache Date of Service July 30, 2016 ED Provider: Praneeth Last MD Pt is a 45 y.o. female with a hx of chronic migraines, opioid dependency, and withdrawal headaches who presents to the ED c/o a migraine headache. Pt reports associated nausea, vomiting, and back pain. Pt is a frequent ED visitor for her chronic migraines with 13 prior visits this year. Pt's symptoms are similar to her typical migraine. She reports taking Fioricet, Tylenol, and Benzodiazepines prior to arrival. Nursing Notes Stated Complaint: MIGRAINE,NAUSEA, VOMITING, BACK PAIN Chief Complaint: Headache Nursing Notes Reviewed: Yes Allergies: Coded Allergies: Contrast Media (Verified Allergy, Unknown, 06/07/16) Sulfa (Sulfonamide Antibiotics) (Verified Allergy, Unknown, 06/07/16) cephalexin (Verified Allergy, Unknown, 06/07/16) ciprofloxacin (Verified Allergy, Unknown, 06/07/16) dihydroergotamine mesylate (Verified Allergy, Unknown, 06/24/16) ether (Verified Allergy, Unknown, 06/24/16) iodine (Verified Allergy, Unknown, 06/24/16) morphine (Verified Allergy, Unknown, 06/24/16) prednisolone (Verified Allergy, Unknown, Causes Severe depression, 06/24/16 ) sumatriptan (Verified Allergy, Unknown, 06/24/16) Scheduled Aspirin Chew (Aspirin Chew) 81 Mg Chew 81 MG PO DAILY Clonidine (Clonidine) 0.2 Mg Tablet 0.4 MG PO BID Doxepin (Doxepin) 100 Mg Capsule 75 MG PO BID Duloxetine (Cymbalta) 30 Mg Capsule.dr 60 MG PO DAILY Hydrocortisone Valerate (Hydrocortisone Valerate) 15 Gm Cream..g. 1 GM TP BID Lamotrigine (Lamotrigine) 200 Mg Tablet 150 MG PO BID Lisinopril (Lisinopril) 20 Mg Tablet 20 MG PO DAILY Loratadine (Claritin) 10 Mg Capsule 10 MG PO DAILY Metformin (Metformin) 500 Mg Tablet 2,000 MG PO BID WITH EVENING MEAL Methocarbamol (Robaxin-750) 750 Mg Tablet 1,500 MG PO g8lyvan Pantoprazole DR (Protonix) 40 Mg Tablet.dr 40 MG PO DAILY Pregabalin (Lyrica) 100 Mg Capsule 1 TAB PO TID Propranolol ER (Propranolol ER) 160 Mg Cap.sa.24h 160 MG PO BID Simvastatin (Simvastatin) 20 Mg Tablet 20 MG PO HS Zonisamide (Zonisamide) 100 Mg Capsule 100 MG PO HS Scheduled PRN Albuterol HFA (Proair HFA) 8.5 Gm Hfa.aer.ad 2 PUFFS INHALATION Q4H PRN PRN For Shortness of Breath Butalbital/Acetamin/Caff 50-300-40 mg (Fioricet 50-300-40 mg) 1 Each Capsule 1 CAPSULE PO Q4H PRN PRN Headache Epinephrine (Epinephrine) 0.3 Mg/0.3 Ml Auto.injct 0.3 MG IJ PRN For Anaphyllaxis Hydroxyzine Pamoate (Vistaril) 25 Mg Capsule 25 MG PO HS PRN PRN For Insomnia Ketorolac Tromethamine (Ketorolac Tromethamine) 60 Mg/2 Ml Syringe 60 MG IM DAILY PRN PRN For Pain Ondansetron ODT (Zofran ODT) 8 Mg Tablet 8 MG PO Q4H PRN PRN For Nausea Pramipexole Dihydrochloride (Pramipexole Dihydrochloride) 1 Mg Tablet 0.75 MG PO DAILY PRN PRN Restless leg General Time Seen by MD: 22:16 Chief Complaint Migraine headache Hx Obtained From: Patient Arrived By: Walk-in Sudden in Onset?: Yes Symptom Duration: Since onset Quality: Painful Severity: Current: Severe Severity: Maximum: Severe Recent Healthcare: Recent doctor visit Similar Sx Previous: Yes Past Medical History Past Medical History Notes: Frequent ER visits for headache Dr. Meyers, Neurology [facility], Psychiatric prescriber Past Medical History GERD Chronic depression Chronic migraines opioid Dependency and withdrawal headaches asthma Fibromyalgia Neuropathy 85% deaf Blind in right eye Morbid Obesity Spinal stenosis Anxiety Bipolar disorder Reports: Asthma, Diabetes mellitus, Gastritis, Hypertension, Peptic ulcer disease Reports: Obesity Past Surgical History Cholecystectomy Appendectomy Hysterectomy Laparoscopy Tonsillectomy Cholecystectomy Sinus Multiple eye surgeries Colonoscopy Family History Reviewed, not relevant Smoking History Current Every Day Smoker Social History She reports recent graduation with Masters Counseling degree and successfully quit smoking. She has 4 grandchildren. Lives with son and his and their daughter Alcohol Use: Denies alcohol use Drug Use: Denies drug use Other Social History: Frequent ED visitor, , Local resident Occupation Student Ambulatory Status Cane Review of Systems GI: Reports: Nausea, Vomiting Musculoskeletal: Reports: Back pain Neurologic: Reports: Headache Complete sys rev & neg: except as marked. Physical Exam Initial Vital Signs Vital Signs (First) Date Time Temp Pulse Resp B/P Pulse Ox O2 Delivery O2 Flow Rate FiO2 07/30/16 21:58 36.9 74 16 138/96 97 Room Air Initial VS: Reviewed, Vital signs abnormal Abdomen / GI: No distention Extremities: Vascular intact, Neuro intact Skin: Warm, Dry, No cyanosis Psychiatric: Mood/affect normal, Behavior normal, Normal thought content General/Constitutional: Well appearing, Well hydrated, Well nourished, Not toxic appearing Alertness: Positive: Sedated, Sleeping but arousable Appearance / Presentation: Positive: Obese, morbidly Head / Eyes: Atraumatic, Normocephalic Neck: Atraumatic Neurologic: Oriented X3 Respiratory / Chest: Atraumatic, Breath sounds NL, Breath sounds = bilat, No respiratory distress Cardiovascular: Heart rate NL, Regular rhythm, Heart sounds NL, Peripheral circulation NL Re-Eval/Medical Decision Med Decision/Clinical Course 45-year-old female complains of her usual headache. She took her usual medicine and has had no relief. She was given Toradol 30 mg IM which has been effective in the past. Source of Hx: Old records Re-Evaluation/Progress : Time of Eval: 23:00 Re-Evaluation/Progress Note: Discussed plan to administer IM Toradol and Ondansetron ODT then discharge home. Pt understands and agrees with plan. Counseled Regarding: Diagnosis, Need for follow-up, When/why to return to ED Discharge & Departure Impression: Primary Impression: Migraine Migraine type: unspecified Status migrainosus presence: without status migrainosus Intractability: not intractable Qualified Code: G43.909 - Migraine, unspecified, not intractable, without status migrainosus Disposition: Home Discharge Condition All VS Reviewed: Yes Condition: Improved Patient Instructions: Migraine Headache (ED) Additional Instructions: You received Toradol 60 mg IM and ondansetron 8 mg sublingual. Home to sleep. Follow-up with your regular doctor Referrals: Celina Card (PCP) Scribe Attestation Portions of this note were transcribed by Jose Perez. I, Dr. Last personally performed the history, physical exam and medical decision-making; I reviewed and confirmed the accuracy of the information in the transcribed note. Signed by: Deloris Bueno, 07/30/16 and 2314. copies to: Celina Card Howard L MD July 30, 2016 22:26 JOSE PEREZ July 30, 2016 22:36
[2016-07-30] MEDS ORDERED: Ondansetron 8 mg ODT Tablet PO ONE (23:00)
== END 2016-07-31 00:28 | disposition home or self-care (01) ==
LOC: SED 21:48
DX: G43.909 Migraine, unspecified, not intractable, without status migrainosus (principal); F11.20 Opioid dependence, uncomplicated; J45.909 Unspecified asthma, uncomplicated; K21.9 Gastro-esophageal reflux disease without esophagitis; E11.9 Type 2 diabetes mellitus without complications; I10 Essential (primary) hypertension; F17.200 Nicotine dependence, unspecified, uncomplicated; Z79.51 Long term (current) use of inhaled steroids; Z79.84 Long term (current) use of oral hypoglycemic drugs; Z79.82 Long term (current) use of aspirin; Z88.2 Allergy status to sulfonamides; Z88.8 Allergy status to other drugs, medicaments and biological substances; Z88.1 Allergy status to other antibiotic agents; Z88.5 Allergy status to narcotic agent
CPT/HCPCS: 96374; 99284; J1885

== ENCOUNTER 2016-08-02 13:59 | Emergency (ER) | payer OTHER ==
[~2016-08-02] VITALS: Ht 157.5 cm; Wt 113.6 kg
[2016-08-02 14:02] VITALS: BP 145/68; PULSE 69; RESP 16; O2SAT 97
--- NOTE | 2016-08-02 15:55 | ED.REPORT ---
HPI-Back Pain 40 and Over Date of Service August 02, 2016 ED Provider: Anshul Pryor MD Patient is a 45 year old female with a hx of frequent ED visits who presents to the ED complaining of increased lower back pain onset 3 days ago. Associated symptoms include dysuria and general discomfort. She denies fever, abdominal pain, incontinence, weakness, numbness, tingling, or any other symptoms. She reports that she had pain like this when she had kidney stones. Nursing Notes Stated Complaint: SEVERE LOWER BACK PAIN,CANT WALK WITHOUT FALLING Chief Complaint: Back Pain or Injury Nursing Notes Reviewed: Yes Allergies: Coded Allergies: Contrast Media (Verified Allergy, Unknown, 08/02/16) Sulfa (Sulfonamide Antibiotics) (Verified Allergy, Unknown, 08/02/16) cephalexin (Verified Allergy, Unknown, 08/02/16) ciprofloxacin (Verified Allergy, Unknown, 08/02/16) dihydroergotamine mesylate (Verified Allergy, Unknown, 08/02/16) ether (Verified Allergy, Unknown, 08/02/16) iodine (Verified Allergy, Unknown, 08/02/16) morphine (Verified Allergy, Unknown, 08/02/16) prednisolone (Verified Allergy, Unknown, Causes Severe depression, 08/02/16) sumatriptan (Verified Allergy, Unknown, 08/02/16) Scheduled Aspirin Chew (Aspirin Chew) 81 Mg Chew 81 MG PO DAILY Clonidine (Clonidine) 0.2 Mg Tablet 0.4 MG PO BID Doxepin (Doxepin) 100 Mg Capsule 75 MG PO BID Duloxetine (Cymbalta) 30 Mg Capsule.dr 60 MG PO DAILY Hydrocortisone Valerate (Hydrocortisone Valerate) 15 Gm Cream..g. 1 GM TP BID Lamotrigine (Lamotrigine) 200 Mg Tablet 150 MG PO BID Lisinopril (Lisinopril) 20 Mg Tablet 20 MG PO DAILY Loratadine (Claritin) 10 Mg Capsule 10 MG PO DAILY Metformin (Metformin) 500 Mg Tablet 2,000 MG PO BID WITH EVENING MEAL Methocarbamol (Robaxin-750) 750 Mg Tablet 1,500 MG PO [id number] Pantoprazole DR (Protonix) 40 Mg Tablet.dr 40 MG PO DAILY Pregabalin (Lyrica) 100 Mg Capsule 1 TAB PO TID Propranolol ER (Propranolol ER) 160 Mg Cap.sa.24h 160 MG PO BID Simvastatin (Simvastatin) 20 Mg Tablet 20 MG PO HS Zonisamide (Zonisamide) 100 Mg Capsule 100 MG PO HS Scheduled PRN Albuterol HFA (Proair HFA) 8.5 Gm Hfa.aer.ad 2 PUFFS INHALATION Q4H PRN PRN For Shortness of Breath Butalbital/Acetamin/Caff 50-300-40 mg (Fioricet 50-300-40 mg) 1 Each Capsule 1 CAPSULE PO Q4H PRN PRN Headache Epinephrine (Epinephrine) 0.3 Mg/0.3 Ml Auto.injct 0.3 MG IJ PRN For Anaphyllaxis Hydroxyzine Pamoate (Vistaril) 25 Mg Capsule 25 MG PO HS PRN PRN For Insomnia Ketorolac Tromethamine (Ketorolac Tromethamine) 60 Mg/2 Ml Syringe 60 MG IM DAILY PRN PRN For Pain Ondansetron ODT (Zofran ODT) 8 Mg Tablet 8 MG PO Q4H PRN PRN For Nausea Pramipexole Dihydrochloride (Pramipexole Dihydrochloride) 1 Mg Tablet 0.75 MG PO DAILY PRN PRN Restless leg General Time Seen by MD: 15:53 Chief Complaint Back pain Hx Obtained From: Patient Arrived By: Walk-in Sudden in Onset?: Yes Onset Occurred: 3 days ago Symptom Duration: Since onset Similar Sx Previous: Yes Risk Factors )( AAA Risk Stratification Abdominal Aortic Aneurysm Risk: Hypertension Smoking Risk factors reviewed )( TAD Risk Stratification HypertensionNo Risk factors reviewed Past Medical History Past Medical History Notes: Frequent ER visits for headache Dr. Meyers, Neurology [facility], Psychiatric prescriber Past Medical History GERD Chronic depression Chronic migraines opioid Dependency and withdrawal headaches asthma Fibromyalgia Neuropathy 85% deaf Blind in right eye Morbid Obesity Spinal stenosis Anxiety Bipolar disorder Reports: Asthma, Diabetes mellitus, Gastritis, Hypertension, Peptic ulcer disease Reports: Obesity Past Surgical History Cholecystectomy Appendectomy Hysterectomy Laparoscopy Tonsillectomy Cholecystectomy Sinus Multiple eye surgeries Colonoscopy Family History Reviewed, not relevant Smoking History Current Every Day Smoker Social History She reports recent graduation with Masters Counseling degree and successfully quit smoking. She has 4 grandchildren. Lives with son and his and their daughter Alcohol Use: Denies alcohol use Drug Use: Denies drug use Other Social History: Frequent ED visitor, , Local resident Occupation Student Ambulatory Status Cane Review of Systems Constitutional: Reports: Malaise, Denies: Fever GI: Denies: Abdominal pain Female: Reports: Dysuria Musculoskeletal: Reports: Back pain Neurologic: Denies: Bladder dysfunction, Bowel dysfunction, Numbness Complete sys rev & neg: except as marked. Physical Exam Initial Vital Signs Vital Signs (First) Date Time Temp Pulse Resp B/P Pulse Ox O2 Delivery O2 Flow Rate FiO2 08/02/16 14:02 36.4 69 16 145/68 97 Room Air Initial VS: Reviewed Head / Eyes: Atraumatic, Normocephalic Skin: Warm, Dry Psychiatric: Mood/affect normal, Behavior normal, Normal thought content General/Constitutional: Awake, Alert, Well developed Respiratory / Chest: No respiratory distress Cardiovascular: Peripheral circulation NL Abdomen: Soft, Non-tender Back: No midline vertebral tend, No CVA tenderness Diffuse low back tenderness Neurologic: Oriented X3, Speech NL Interpretation & Diagnostics Lab Results Interpretation Test 08/02/16 16:48 Urine Color Yellow (YELLOW) Urine Appearance Hazy (CLEAR,HAZY) Urine pH 6.0 (5.0-8.0) Urine Specific [place] 1.025 (1.003-1.035) Urine Protein Negativemg/dL (NEG,TRACE) Urine Glucose (UA) Negativemg/dL (NEGATIVE) Urine Ketones Tracemg/dL (NEGATIVE) Urine Occult Blood Negative (NEGATIVE) Urine Nitrite Negative (NEGATIVE) Urine Bilirubin Negative (NEGATIVE) Urine Urobilinogen Normalmg/dL (NORMAL) Urine Leukocyte Esterase Negative (NEGATIVE) Urine RBC 0-2/hpf (0-2) Urine WBC 0-5/hpf (0-5) Urine Epithelial Cells Moderate/hpf (NONE-MOD) Urine Crystals None seen (NONE SEEN) Urine Bacteria Few/hpf (NONE-FEW) Urine Hyaline Casts None/lpf (NONE) Urine Granular Casts None seen (NONE SEEN) Urine Waxy Casts None seen (NONE SEEN) Urine Red Blood Cell Casts None seen (NONE SEEN) Urine White Blood Cell Casts None seen (NONE SEEN) Urine Mucus Present (None Seen) Urine Trichomonas None seen (NONE SEEN) Urine Yeast None (NONE SEEN) Urinalysis Comment None Urine Culture Reflexed Not indicated Re-Eval/Medical Decision Med Decision/Clinical Course 45-year-old female with history of chronic pain and opioid dependence presenting with low back pain times several days. She has had this pain in the past. Denies any trauma. No fevers, nausea vomiting, abdominal pain. She has diffuse low back pain and no midline tenderness. She has a normal neurological exam. She has no incontinence, saddle anesthesia, weakness numbness tingling and no red flag symptoms. Urine is negative for blood and negative for infection. Patient was given Toradol with minimal improvement. She was requesting narcotics. Given her chronic opioid dependence and her benign exam and that this is acute on chronic issue, I informed her that narcotics were not indicated. We will discharge home with return precautions if any new or worsening back pain, fevers, nausea vomiting, abdominal pain, this numbness tingling, any incontinence or any other new or worsening symptoms. Re-Evaluation/Progress : Time of Eval: 17:01 Patient Status: Condition improved Re-Evaluation/Progress Note: Discussed plan for discharge. Patient understands and agrees with plan. All questions addressed at this time. Counseled Regarding: Diagnosis, Lab results, Need for follow-up, When/why to return to ED Discharge & Departure Impression: Primary Impression: Back pain Back pain location: back pain in unspecified location Chronicity: acute Back pain laterality: unspecified Qualified Code: M54.9 - Dorsalgia, unspecified Disposition: Home Discharge Condition All VS Reviewed: Yes Condition: Improved Patient Instructions: Acute Low Back Pain (ED) Additional Instructions: Thank you for entrusting us with your care today. Your evaluation was reassuring and there does not appear to be a dangerous cause for your back pain at this time. You may use Ibuprofen (up to 800 mg 3x a day) to treat your pain. Alternate between ice (no more than 20 minutes at a time) and heat. Follow up with your primary doctor in the next week if your symptoms persist. Return to the emergency department if you experience weakness, numbness, tingling, incontinence, fever, chills, nausea, vomiting, abdominal pain, or any other new or worsening symptoms. Referrals: Celina Card (PCP) Scribe Attestation Portions of this note were transcribed by Jason Cordoba. I, Dr. Pryor personally performed the history, physical exam and medical decision-making; I reviewed and confirmed the accuracy of the information in the transcribed note. Signed by: Jason Cordoba 08/02/16, 1722 copies to: Celina Card Ben M MD August 02, 2016 15:55 JASON CORDOBA August 02, 2016 16:04
[2016-08-02 17:13] LABS: COLOR,URINE YELLOW (YELLOW); OCCULT BLOOD,URINE NEGATIVE (NEGATIVE); UROBILINOGEN,URINE NORMAL (NORMAL)
[2016-08-02 17:15] LABS: APPEARANCE,URINE HAZY (CLEAR,HAZY)
[2016-08-02 17:46] VITALS: BP 159/81; PULSE 77; O2SAT 95
== END 2016-08-02 17:47 | disposition home or self-care (01) ==
LOC: SED 13:59
DX: M54.5 Low back pain (principal); K21.9 Gastro-esophageal reflux disease without esophagitis; I10 Essential (primary) hypertension; E11.40 Type 2 diabetes mellitus with diabetic neuropathy, unspecified; F17.200 Nicotine dependence, unspecified, uncomplicated; Z79.82 Long term (current) use of aspirin; Z79.84 Long term (current) use of oral hypoglycemic drugs; Z79.899 Other long term (current) drug therapy; Z88.1 Allergy status to other antibiotic agents; Z88.2 Allergy status to sulfonamides; Z88.5 Allergy status to narcotic agent; Z88.8 Allergy status to other drugs, medicaments and biological substances; Z91.041 Radiographic dye allergy status
CPT/HCPCS: 81000; 81025; 96372; 99284; J1885

== ENCOUNTER 2016-08-08 15:17 | Emergency (ER) | payer OTHER ==
[~2016-08-08] VITALS: Ht 157.5 cm; Wt 117.7 kg
[2016-08-08 15:21] VITALS: BP 173/101; PULSE 76; O2SAT 98
--- NOTE | 2016-08-08 15:35 | ED.REPORT ---
HPI-Abd Pain F 40 and Over Date of Service August 08, 2016 ED Provider: Anshul Pryor MD Pt is a 45 y.o. female who is a frequent ED visitor, 15 visits this year, with a hx of DM, GERD, peptic ulcer disease, gastritis, HTN, and opioid dependence who presents to the ED c/o severe abdominal pain rated at a 10 onset yesterday. She reports associated nausea and vomiting. She denies hematemesis and hematochezia. Pt states that she had an endoscopy and colonoscopy performed on at [facility], secondary to frequent GERD. She states that her procedure showed nothing acute. Nursing Notes Stated Complaint: ABDOMINAL PAIN,NAUSEA,VOMITING Chief Complaint: Female Abdominal Pain Nursing Notes Reviewed: Yes Allergies: Coded Allergies: Contrast Media (Verified Allergy, Unknown, 08/02/16) Sulfa (Sulfonamide Antibiotics) (Verified Allergy, Unknown, 08/02/16) cephalexin (Verified Allergy, Unknown, 08/02/16) ciprofloxacin (Verified Allergy, Unknown, 08/02/16) dihydroergotamine mesylate (Verified Allergy, Unknown, 08/02/16) ether (Verified Allergy, Unknown, 08/02/16) iodine (Verified Allergy, Unknown, 08/02/16) morphine (Verified Allergy, Unknown, 08/02/16) prednisolone (Verified Allergy, Unknown, Causes Severe depression, 08/02/16) sumatriptan (Verified Allergy, Unknown, 08/02/16) Scheduled Aspirin Chew (Aspirin Chew) 81 Mg Chew 81 MG PO DAILY Clonidine (Clonidine) 0.2 Mg Tablet 0.4 MG PO BID Doxepin (Doxepin) 100 Mg Capsule 75 MG PO BID Duloxetine (Cymbalta) 30 Mg Capsule.dr 60 MG PO DAILY Hydrocortisone Valerate (Hydrocortisone Valerate) 15 Gm Cream..g. 1 GM TP BID Lamotrigine (Lamotrigine) 200 Mg Tablet 150 MG PO BID Lisinopril (Lisinopril) 20 Mg Tablet 20 MG PO DAILY Loratadine (Claritin) 10 Mg Capsule 10 MG PO DAILY Metformin (Metformin) 500 Mg Tablet 2,000 MG PO BID WITH EVENING MEAL Methocarbamol (Robaxin-750) 750 Mg Tablet 1,500 MG PO [id number] Pantoprazole DR (Protonix) 40 Mg Tablet.dr 40 MG PO DAILY Pregabalin (Lyrica) 100 Mg Capsule 1 TAB PO TID Propranolol ER (Propranolol ER) 160 Mg Cap.sa.24h 160 MG PO BID Simvastatin (Simvastatin) 20 Mg Tablet 20 MG PO HS Tamsulosin (Flomax) 0.4 Mg Capsule 0.4 MG PO DAILY Zonisamide (Zonisamide) 100 Mg Capsule 100 MG PO HS Scheduled PRN Albuterol HFA (Proair HFA) 8.5 Gm Hfa.aer.ad 2 PUFFS INHALATION Q4H PRN PRN For Shortness of Breath Butalbital/Acetamin/Caff 50-300-40 mg (Fioricet 50-300-40 mg) 1 Each Capsule 1 CAPSULE PO Q4H PRN PRN Headache Epinephrine (Epinephrine) 0.3 Mg/0.3 Ml Auto.injct 0.3 MG IJ PRN For Anaphyllaxis Hydroxyzine Pamoate (Vistaril) 25 Mg Capsule 25 MG PO HS PRN PRN For Insomnia Ketorolac Tromethamine (Ketorolac Tromethamine) 60 Mg/2 Ml Syringe 60 MG IM DAILY PRN PRN For Pain Ondansetron ODT (Zofran ODT) 8 Mg Tablet 8 MG PO Q4H PRN PRN For Nausea Pramipexole Dihydrochloride (Pramipexole Dihydrochloride) 1 Mg Tablet 0.75 MG PO DAILY PRN PRN Restless leg General Time Seen by MD: 15:32 Chief Complaint Abdominal pain Hx Obtained From: Patient Arrived By: Walk-in Sudden in Onset?: Yes Onset Occurred: Yesterday Symptom Duration: Since onset Progression since Onset: Constant Location: : Diffuse Quality: Painful Severity: Current: Pain level 10 out of 10 Similar Sx Previous: No Past Medical History Past Medical History Notes: Frequent ER visits for headache Dr. Meyers, Neurology [facility], Psychiatric prescriber Past Medical History GERD Chronic depression Chronic migraines opioid Dependency and withdrawal headaches asthma Fibromyalgia Neuropathy 85% deaf Blind in right eye Morbid Obesity Spinal stenosis Anxiety Bipolar disorder Reports: Asthma, Diabetes mellitus, Gastritis, Hypertension, Peptic ulcer disease Reports: Obesity Past Surgical History Cholecystectomy Appendectomy Hysterectomy Laparoscopy Tonsillectomy Cholecystectomy Sinus Multiple eye surgeries Colonoscopy Family History Reviewed, not relevant Smoking History Current Every Day Smoker Social History She reports recent graduation with Masters Counseling degree and successfully quit smoking. She has 4 grandchildren. Lives with son and his and their daughter Alcohol Use: Denies alcohol use Drug Use: Denies drug use Other Social History: Frequent ED visitor, , Local resident Occupation Student Ambulatory Status Cane Review of Systems GI: Reports: Abdominal pain, Nausea, Vomiting, Denies: Hematemesis, Hematochezia Complete sys rev & neg: except as marked. Physical Exam Vital Signs Vital Signs (First) Date Time Temp Pulse Resp B/P Pulse Ox O2 Delivery O2 Flow Rate FiO2 08/08/16 15:21 36.4 76 173/101 98 Room Air 08/08/16 17:55 22 Initial VS: Reviewed Head / Eyes: Atraumatic, Normocephalic Extremities: Vascular intact, Neuro intact Skin: Warm, Dry, No cyanosis Neurologic: Alert, Oriented, Nonfocal Psychiatric: Mood/affect normal, Behavior normal, Normal thought content General/Constitutional: Awake, Alert, Well appearing, Well developed, Well hydrated, Well nourished, Not toxic appearing Appearance / Presentation: Positive: In pain, Obese, morbidly, Uncomfortable Respiratory / Chest: Atraumatic, Breath sounds NL, Breath sounds = bilat, No respiratory distress Cardiovascular: Heart rate NL, Regular rhythm, Heart sounds NL, Cap refill not delayed, Peripheral circulation NL Abdomen: Atraumatic, Soft, No distention Tenderness/Guarding/Rebound: Positive: Guarding voluntary, Tender diffuse Back: Atraumatic Interpretation & Diagnostics Lab Results Interpretation Result Diagram: 08/08/16 1600 08/08/16 1600 Test 08/08/16 16:00 08/08/16 18:20 White Blood Count 9.9th/mm3 (3.8-10.1) Red Blood Count 4.39mil/mm3 (3.90-5.20) Hemoglobin 11.5g/dL (12.0-15.6) Hematocrit 37.7% (35.0-46.0) Mean Corpuscular Volume 85.9fL (81-100) Mean Corpuscular Hemoglobin 26.2pg (27.0-35.0) Mean Corpuscular Hemoglobin Concent 30.5% (32.0-37.0) Red Cell Distribution Width 15.0% (12.3-15.4) Platelet Count 286bil/L (150-400) Neutrophils (%) (Auto) 51.6% (40-74) Lymphocytes (%) (Auto) 37.1% (14-46) Monocytes (%) (Auto) 7.4% (4-12) Eosinophils (%) (Auto) 2.5% (0-5) Basophils (%) (Auto) 0.6% (0-3) Sodium Level 138mEq/L (134-144) Potassium Level 3.5mEq/L (3.5-5.2) Chloride Level 95mEq/L (97-108) Carbon Dioxide Level 30mmol/L (18-29) Blood Urea Nitrogen 6mg/dL (6-24) Creatinine 0.56mg/dL (0.57-1.00) Estimat Glomerular Filtration Rate 168mL/min (>59) Glucose Level 129mg/dL (60-99) Calcium Level 8.9mg/dL (8.5-10.1) Magnesium Level 1.6mg/dL (1.6-2.6) Total Bilirubin 0.2mg/dL (0.0-1.2) Aspartate Amino Transf (AST/SGOT) 20U/L (0-50) Alanine Aminotransferase (ALT/SGPT) 18U/L (0-32) Alkaline Phosphatase 71U/L (25-150) Total Protein 6.2g/dL (6.4-8.4) Albumin 3.6g/dL (3.4-5.0) Lipase 25U/L (13-60) Urine Color Yellow (YELLOW) Urine Appearance Clear (CLEAR,HAZY) Urine pH 6.5 (5.0-8.0) Urine Specific [place] 1.025 (1.003-1.035) Urine Protein Negativemg/dL (NEG,TRACE) Urine Glucose (UA) Negativemg/dL (NEGATIVE) Urine Ketones Negativemg/dL (NEGATIVE) Urine Occult Blood Negative (NEGATIVE) Urine Nitrite Negative (NEGATIVE) Urine Bilirubin Negative (NEGATIVE) Urine Urobilinogen Normalmg/dL (NORMAL) Urine Leukocyte Esterase Negative (NEGATIVE) Urine RBC 0-2/hpf (0-2) Urine WBC 0-5/hpf (0-5) Urine Epithelial Cells Many/hpf (NONE-MOD) Urine Crystals None seen (NONE SEEN) Urine Bacteria Many/hpf (NONE-FEW) Urine Hyaline Casts None/lpf (NONE) Urine Granular Casts None seen (NONE SEEN) Urine Waxy Casts None seen (NONE SEEN) Urine Red Blood Cell Casts None seen (NONE SEEN) Urine White Blood Cell Casts None seen (NONE SEEN) Urine Mucus None seen (None Seen) Urine Trichomonas None seen (NONE SEEN) Urine Yeast None (NONE SEEN) Urinalysis Comment None Urine Culture Reflexed Indicated X-Ray Abdominal Interpretation IMPRESSION: No acute abnormality seen. No free air identified Dictated by: Kin Ruiz M.D. on 08/08/2016 at 17:12 Approved by: Kin Ruiz M.D. on 08/08/2016 at 17:14 CT Abd / Pelvis Interpretation IMPRESSION: No acute abnormality. No free air or free fluid. Hepatic steatosis. Nonobstructing punctate left renal calculus in the inferior pole. Dictated by: Kin Ruiz M.D. on 08/08/2016 at 16:24 Approved by: Kin Ruiz M.D. on 08/08/2016 at 16:27 Re-Eval/Medical Decision Med Decision/Clinical Course 45-year-old female with chronic abdominal pain and opioid dependence presenting with abdominal pain one day post-colonoscopy. She was told she would have abdominal pain but she is here with abdominal pain. She has no blood in her stools or black tarry stools. She has no other symptoms other than abdominal pain. Her abdomen is initially diffusely tender. CT abdomen shows no acute pathology. Vital signs are stable. Labs are normal. Patient was requesting narcotics which I told her would not give her given her opioid dependence. She was not happy about this. Return precautions given. Source of Hx: Old records Re-Evaluation/Progress : Time of Eval: 17:37 Re-Evaluation/Progress Note: Waiting for pt to provide a urine sample. Counseled Regarding: Diagnosis, Lab results, Need for follow-up, When/why to return to ED Discharge & Departure Primary Impression: Abdominal pain Additional Impression: Kidney stone Disposition: Home Discharge Condition All VS Reviewed: Yes Condition: Improved Patient Instructions: Acute Abdominal Pain (ED), Kidney Stones (GEN) Additional Instructions: You were seen here today for abdominal pain. Your imaging was reassuring and your pain is most likely due to your recent colonoscopy. Your CT imaging also showed kidney stones. Take Flomax as directed for your kidney stones. You may take ibuprofen and Tylenol as directed for pain. I recommend you follow-up with your primary care provider this week, call Wednesday to schedule an appointment. Return if you develop increased abdominal pain, fever, intractable vomiting, blood in your vomit, or any new or worsening symptoms. Referrals: Celina Card (PCP) Deloris Attestation Portions of this note were transcribed by Jose Perez. I, Dr. Pryor personally performed the history, physical exam and medical decision-making; I reviewed and confirmed the accuracy of the information in the transcribed note. Signed by: Deloris Bueno, 08/08/16 and 1817 copies to: Celina Card Ben M MD August 08, 2016 15:35 JOSE PEREZ August 08, 2016 16:02
[2016-08-08] MEDS ORDERED: 0.9% Sodium Chloride 1,000 ML IV ONE (15:57)
[2016-08-08] MEDS ORDERED: Ondansetron 2 mg/mL 2 mL Inj IVPUSH PRN (16:00)
[2016-08-08 16:18] LABS: BASOPHILS % (AUTO) 0.6 % (0-3); EOSINOPHILS % (AUTO) 2.5 % (0-5); MONOCYTES % (AUTO) 7.4 % (4-12); Mean Corpuscular Hemoglobin 26.2 pg (27.0-35.0); Mean Corpuscular Volume 85.9 fL (81-100); NEUTROPHILS % (AUTO) 51.6 % (40-74); Platelet Count 286 bil/L (150-400)
--- NOTE | 2016-08-08 16:29 | DRSVH ---
PROCEDURE: CT ABDOMEN AND PELVIS WITHOUT CONTRAST ([id number]) INDICATIONS: abd pain colonoscopy yesterday TECHNIQUE: After the administration of oral contrast, 5 mm thick sections acquired from the diaphragms to the sy mphysis. 5 mm coronal and sagittal reformats were performed. For radiation dose reduction, the foll owing was used: automated exposure control, adjustment of mA and/or kV according to patient size. COMPARISON: None. FINDINGS: Image quality: Excellent. ABDOMEN: Lung bases: Lung bases are clear. Heart size is normal. Solid organs: There is hepatic steatosis. Otherwise liver and spleen are normal in size. Gallbladder surgically absent. Pancreas is normal in size. No adrenal nodules. Both kidneys are normal in siz e, without hydronephrosis. There is a punctate left renal calculus seen in the inferior pole image 43 series 4. Peritoneum and bowel: Bowel loops demonstrate normal wall thickness and caliber. No free fluid or a ir. Appendix not clearly identified however no suspicious pericecal inflammatory changes. Postsurgic al changes and small clip seen in the region of the anterior abdominal wall. Nodes and vessels: No retroperitoneal or mesenteric adenopathy by size criteria. Aorta and inferior vena cava are normal in size. Miscellaneous: No ventral hernias. PELVIS: Genitourinary: Bladder wall thickness is normal. Miscellaneous: No inguinal hernias or adenopathy. Bones: No suspicious bony lesions. No vertebral body compression fractures. IMPRESSION: No acute abnormality. No free air or free fluid. Hepatic steatosis. Nonobstructing punctate left renal calculus in the inferior pole. Dictated by: Kin Ruiz M.D. on 08/08/2016 at 16:24 Approved by: Kin Ruiz M.D. on 08/08/2016 at 16:27
[2016-08-08 16:39] LABS: Magnesium 1.6 mg/dL (1.6-2.6)
[2016-08-08] MEDS ORDERED: TAMS0.4C98 PO (17:02)
--- NOTE | 2016-08-08 17:16 | DRSVH ---
PROCEDURE: X-RAY ACUTE ABDOMINAL SERIES ([id number]) INDICATIONS: abd pain TECHNIQUE: One view chest and two views of the abdomen were acquired. COMPARISON: Merged With [facility], , [facility] ACUTE SERIES, 04/02/2013, 22:30. FINDINGS: Surgical changes and devices: None. Chest: Lungs are clear. Heart size is normal. No pleural effusions. No pneumoperitoneum. Abdomen: Bowel gas pattern is normal. No suspicious calcifications. Visualized solid organ contour s appear normal. Bones: No suspicious bony lesions. Bilateral hip joint degeneration IMPRESSION: No acute abnormality seen. No free air identified Dictated by: Kin Ruiz M.D. on 08/08/2016 at 17:12 Approved by: Kin Ruiz M.D. on 08/08/2016 at 17:14
[2016-08-08 17:55] VITALS: BP 169/93; PULSE 77; RESP 22; O2SAT 96
[2016-08-08 18:31] LABS: APPEARANCE,URINE CLEAR (CLEAR,HAZY); COLOR,URINE YELLOW (YELLOW); OCCULT BLOOD,URINE NEGATIVE (NEGATIVE); PH,URINE 6.5 (5.0-8.0); UROBILINOGEN,URINE NORMAL (NORMAL)
[2016-08-08 18:37] VITALS: BP 169/93; PULSE 77; RESP 22; O2SAT 96
== END 2016-08-08 18:37 | disposition home or self-care (01) ==
LOC: SED 15:17
DX: N20.1 Calculus of ureter (principal); E11.9 Type 2 diabetes mellitus without complications; K21.9 Gastro-esophageal reflux disease without esophagitis; I10 Essential (primary) hypertension; J45.909 Unspecified asthma, uncomplicated; F17.200 Nicotine dependence, unspecified, uncomplicated; Z91.041 Radiographic dye allergy status; Z98.890 Other specified postprocedural states; Z88.2 Allergy status to sulfonamides; Z88.8 Allergy status to other drugs, medicaments and biological substances; Z88.1 Allergy status to other antibiotic agents; Z88.5 Allergy status to narcotic agent; Z79.82 Long term (current) use of aspirin; Z79.84 Long term (current) use of oral hypoglycemic drugs
CPT/HCPCS: 36415; 74022; 74176; 80053; 81000; 81025; 83690; 83735; 85025; 87086; 87088; 96361; 96374; 96375; 99285; J1885; J2405; J7030

== ENCOUNTER 2016-08-14 17:33 | Emergency (ER) | payer OTHER ==
[~2016-08-14] VITALS: Ht 157.5 cm; Wt 114.1 kg
[~2016-08-14 17:33] MED LIST changes: +TAMS0.4C98 PO
[2016-08-14 18:00] VITALS: BP 179/109; PULSE 69; RESP 14; O2SAT 100
--- NOTE | 2016-08-14 19:25 | ED.REPORT ---
HPI-Abd Pain F 40 and Over Date of Service August 14, 2016 ED Provider: Jono Minor MD The pt is a 45 y/o female w/ a hx of 3 kidney stone surgeries presenting to the ED complaining of dysuria onset 4 days ago. She is also experiencing left sided flank pain which radiates to the front which is exacerbated w/ movement and it is very similar to what she has experienced in the past. The pt is also experiencing nausea, and vomiting onset this morning. At times she also feels like she is unable to urinate. She has taken Zofran for the nausea and Tylenol for the pain. Denies fevers. Nursing Notes Stated Complaint: KIDNEY PAIN/NAUSEA Chief Complaint: Back Pain or Injury Nursing Notes Reviewed: Yes ([employer]s not reconciled) Allergies: Coded Allergies: Contrast Media (Verified Allergy, Unknown, 08/02/16) Sulfa (Sulfonamide Antibiotics) (Verified Allergy, Unknown, 08/02/16) cephalexin (Verified Allergy, Unknown, 08/02/16) ciprofloxacin (Verified Allergy, Unknown, 08/02/16) dihydroergotamine mesylate (Verified Allergy, Unknown, 08/02/16) ether (Verified Allergy, Unknown, 08/02/16) iodine (Verified Allergy, Unknown, 08/02/16) morphine (Verified Allergy, Unknown, 08/02/16) prednisolone (Verified Allergy, Unknown, Causes Severe depression, 08/02/16) sumatriptan (Verified Allergy, Unknown, 08/02/16) Scheduled Aspirin Chew (Aspirin Chew) 81 Mg Chew 81 MG PO DAILY Clonidine (Clonidine) 0.2 Mg Tablet 0.4 MG PO BID Doxepin (Doxepin) 100 Mg Capsule 75 MG PO BID Duloxetine (Cymbalta) 30 Mg Capsule.dr 60 MG PO DAILY Hydrocortisone Valerate (Hydrocortisone Valerate) 15 Gm Cream..g. 1 GM TP BID Lamotrigine (Lamotrigine) 200 Mg Tablet 150 MG PO BID Lisinopril (Lisinopril) 20 Mg Tablet 20 MG PO DAILY Loratadine (Claritin) 10 Mg Capsule 10 MG PO DAILY Metformin (Metformin) 500 Mg Tablet 2,000 MG PO BID WITH EVENING MEAL Methocarbamol (Robaxin-750) 750 Mg Tablet 1,500 MG PO [id number] Pantoprazole DR (Protonix) 40 Mg Tablet.dr 40 MG PO DAILY Pregabalin (Lyrica) 100 Mg Capsule 1 TAB PO TID Propranolol ER (Propranolol ER) 160 Mg Cap.sa.24h 160 MG PO BID Simvastatin (Simvastatin) 20 Mg Tablet 20 MG PO HS Tamsulosin (Flomax) 0.4 Mg Capsule 0.4 MG PO DAILY Zonisamide (Zonisamide) 100 Mg Capsule 100 MG PO HS Scheduled PRN Albuterol HFA (Proair HFA) 8.5 Gm Hfa.aer.ad 2 PUFFS INHALATION Q4H PRN PRN For Shortness of Breath Butalbital/Acetamin/Caff 50-300-40 mg (Fioricet 50-300-40 mg) 1 Each Capsule 1 CAPSULE PO Q4H PRN PRN Headache Epinephrine (Epinephrine) 0.3 Mg/0.3 Ml Auto.injct 0.3 MG IJ PRN For Anaphyllaxis Hydroxyzine Pamoate (Vistaril) 25 Mg Capsule 25 MG PO HS PRN PRN For Insomnia Ketorolac Tromethamine (Ketorolac Tromethamine) 60 Mg/2 Ml Syringe 60 MG IM DAILY PRN PRN For Pain Ondansetron ODT (Zofran ODT) 8 Mg Tablet 8 MG PO Q4H PRN PRN For Nausea Pramipexole Dihydrochloride (Pramipexole Dihydrochloride) 1 Mg Tablet 0.75 MG PO DAILY PRN PRN Restless leg General Time Seen by MD: 19:20 Chief Complaint Dysuria Hx Obtained From: Patient Arrived By: Walk-in Sudden in Onset?: Yes Onset Occurred: 4 days ago Recent Healthcare: No recent hospitalization, Recent doctor visit Similar Sx Previous: Yes Past Medical History Past Medical History Notes: Frequent ER visits for headache Dr. Meyers, Neurology [facility], Psychiatric prescriber Patient w/greater than 15 ED visits in 2017 Last ED visit 08/08/2016 for abdominal pain as well, patient one day status post colonoscopy and endoscopy 08/06/16 at [facility] (reportedly negative), and had CT scan on 08/08/16 in ED that was negative Past Medical History GERD Chronic depression Chronic migraines opioid Dependency and withdrawal headaches asthma Fibromyalgia Neuropathy 85% deaf Blind in right eye Morbid Obesity Spinal stenosis Anxiety Bipolar disorder Reports: Asthma, Diabetes mellitus, Gastritis, Hypertension, Peptic ulcer disease Reports: Obesity Past Surgical History Cholecystectomy Appendectomy Hysterectomy Laparoscopy Tonsillectomy Cholecystectomy Sinus Multiple eye surgeries Colonoscopy Family History Reviewed, not relevant Smoking History Current Every Day Smoker Social History She reports recent graduation with Masters Counseling degree and successfully quit smoking. She has 4 grandchildren. Lives with son and his and their daughter Alcohol Use: Denies alcohol use Drug Use: Denies drug use Other Social History: Frequent ED visitor, , Local resident Occupation Student Ambulatory Status Cane Review of Systems Constitutional: Denies: Fever GI: Reports: Nausea, Vomiting Female: Reports: Dysuria, Flank pain (L sided ), Urination decreased Complete sys rev & neg: except as marked. Physical Exam Vital Signs Vital Signs (First) Date Time Temp Pulse Resp B/P Pulse Ox O2 Delivery O2 Flow Rate FiO2 08/14/16 18:00 36.4 69 14 179/109 100 08/15/16 00:07 Room Air Initial VS: Reviewed, Vital signs abnormal (HTN only) General/Constitutional: Awake, Alert Appearance / Presentation: Positive: Obese Does not appear in visible discomfort Respiratory / Chest: Atraumatic, Breath sounds NL, Breath sounds = bilat, No respiratory distress, No rales, No rhonchi, No wheezing Cardiovascular: Heart rate NL, Regular rhythm, Heart sounds NL Abdomen: Atraumatic, Soft, Non-tender Back: Full range of motion Flank / Spine / Paraspinal: Positive: Flank tender L Head / Eyes: Atraumatic, Normocephalic ENT: Atraumatic, Airway patent Skin: Atraumatic, Color NL, No rash, Warm Slight diaphoresis Neurologic: Oriented X3, Speech NL Neck: Atraumatic, Full range of motion Psychiatric: Affect NL, Mood NL Interpretation & Diagnostics Lab Results Interpretation Test 08/14/16 23:21 Urine Color Yellow (YELLOW) Urine Appearance Clear (CLEAR,HAZY) Urine pH 6.5 (5.0-8.0) Urine Specific [place] 1.020 (1.003-1.035) Urine Protein Tracemg/dL (NEG,TRACE) Urine Glucose (UA) Negativemg/dL (NEGATIVE) Urine Ketones Negativemg/dL (NEGATIVE) Urine Occult Blood Negative (NEGATIVE) Urine Nitrite Negative (NEGATIVE) Urine Bilirubin Negative (NEGATIVE) Urine Urobilinogen Normalmg/dL (NORMAL) Urine Leukocyte Esterase Negative (NEGATIVE) Urine RBC 0-2/hpf (0-2) Urine WBC 0-5/hpf (0-5) Urine Epithelial Cells Few/hpf (NONE-MOD) Urine Crystals None seen (NONE SEEN) Urine Bacteria Moderate/hpf (NONE-FEW) Urine Hyaline Casts None/lpf (NONE) Urine Granular Casts None seen (NONE SEEN) Urine Waxy Casts None seen (NONE SEEN) Urine Red Blood Cell Casts None seen (NONE SEEN) Urine White Blood Cell Casts None seen (NONE SEEN) Urine Mucus Present (None Seen) Urine Trichomonas None seen (NONE SEEN) Urine Yeast None (NONE SEEN) Urinalysis Comment None Urine Culture Reflexed Indicated Lab Results Interpretation: Urinalysis negative US Renal/Urinary Tract IMPRESSION: 1. No hydronephrosis. 2. Small left renal calculus identified by prior CT scan is not seen by ultrasound. Dictated by: Suzan Suarez MD, PhD on 08/14/2016 at 20:56 Approved by: Suzan Suarez MD, PhD on 08/14/2016 at 20:59 Exam Performed by: Allied health pract Re-Eval/Medical Decision Med Decision/Clinical Course This is a 45-year-old obese female set of multitude of ED visits mainly for migraines who presents complaining of left flank pain. She has had a previous history of kidney stones, she was just in for abdominal pain and had a CT scan of the abdomen pelvis with contrast with no clear acute disease, but has had some recent left-sided kidney stones that she is worried if not traversed into the ureter and she is having acute colicky left flank pain that has worsened and forced to return to the department. She denies fevers chills or infectious symptoms. On exam she is obese. She appears mildly comfortable but not emily distress. Her abdomen is soft and nontender. Extensive records are reviewed. She has had a multitude his CTs over the years. She just had a CT imaging within the past 7 days, saw not finding indication for repeat radiation-a urinalysis was obtained which was normal, and an ultrasound was obtained and revealed no hydro-nephrosis. The stones seen on CT are not clearly identified on ultrasound. At this point she has no hard findings of a severe urolithiasis, it is true that neither hematuria nor ultrasound are adequately sensitive to exclude the possibility of a stone. However there are no findings indicate surgical management, need for admission. The patient did receive a single dose of Dilaudid in the department, and I have after discussion of the patient in for a single prepack of hydrocodone, but it was explained that she would need to follow up with her PCP for any further controlled substances in this setting where there is not clear objective pathology, but the history is indeed suspicious for the possibility of a stone, and the risk of radiation and additional workup outweighs the minimal benefit in diagnostic clarity. Patient is being discharged in improved condition. Return precautions reviewed Source of Hx: Old records Re-Evaluation/Progress : Time of Eval: 23:47 Re-Evaluation/Progress Note: Rechecked pt. Pt is feeling slightly better. Informed pt of plan for treatment. Pt understands and agrees with plan for treatment. F/U instructions and RTER warnings given. All questions addressed. Differential Diagnosis: Positive: Urolithiasis, Negative: Abdominal aortic aneurysm, Acute abdominal pain, Acute coronary syndrome, C. diff colitis, Contusion abdominal wall, Ectopic , Esophageal rupture, Gun shot wound abdomen, Peritonitis, Pyelonephritis, Stab wound abdomen, Trauma, abdominal, Urinary tract infection Counseled Regarding: Diagnosis, Need for follow-up, When/why to return to ED Discharge & Departure Primary Impression: Abdominal pain Abdominal location: unspecified location Qualified Code: R10.9 - Unspecified abdominal pain Additional Impressions: Hypertension Hypertension type: unspecified secondary hypertension Qualified Code: I15.9 - Secondary hypertension, unspecified Urolithiasis Urinary calculus location: ureter Qualified Code: N20.1 - Calculus of ureter Disposition: Home Discharge Condition All VS Reviewed: Yes Condition: Stable Additional Instructions: 1. Your urine tests were normal-there are no markers of infection, and no blood indicative of acute kidney stone-however urine tests are not perfect identifying kidney stones. 2. Your ultrasound was normal-there is no signs of hydronephrosis, which is an indicator that a kidney stone is causing problems. However this is a test that really identifies if there is any indication that he would need a surgically corrected kidney stone. Cannot completely exclude a small kidney stone causing her pain, but I do not recommend a repeat CT scan at this stage given you just had one a week ago and its attendant risks of radiation. 3. Drink extra fluids. 4. Take ibuprofen 400 mg 3 times a day with food. 5. If needed for pain take hydrocodone/APAP 5/325 1-2 tabs up to every 6 hours if needed for pain. Note this contains narcotic-use sparingly. No driving for at least 4-6 hours after taking. We can not provide refills of this medication from the emergency department. 6. Call your regular doctor schedule an appointment. Referrals: Celina Card (PCP) Scribe Attestation Portions of this note were transcribed by Luis Daniel Sethi. I, Dr. Minor personally performed the history, physical exam and medical decision-making; I reviewed and confirmed the accuracy of the information in the transcribed note. Signed by : Deloris Lehman, 08/14/16 and 2240. copies to: Celina Card Matthew F MD August 14, 2016 19:25 Luis Daniel Sethi August 14, 2016 22:32
[2016-08-14] MEDS ORDERED: ProchlorPERazine 5 mg/mL 2 mL Inj IM ONE (20:10)
[2016-08-14] MEDS ORDERED: HYDROmorphone 1 mg/mL Inj IM ONE (20:10)
--- NOTE | 2016-08-14 21:00 | DRSVH ---
PROCEDURE: US RETROPERITONEAL SONOGRAM ([id number]) INDICATIONS: L Flank pain TECHNIQUE: Real-time scanning was performed of the kidneys and bladder, with image documentation. COMPARISON: [facility], CT, CT ABD PELVIS WO CON, 08/08/2016, 16:14. FINDINGS: Kidneys: Kidneys are normal in size. Right kidney measures 13.4 cm long; left kidney measures 12.3 cm long. Right renal cortical thickness is 1.9 cm; left renal cortical thickness is 1.7 cm. Renal c ortical echotexture is normal. No hydronephrosis or nephrolithiasis. No suspicious solid mass lesio ns. Bladder: Pre-void bladder volume is 239 mL. Post-void residual is not measured by the technologist. Pre-void images demonstrate no intraluminal masses or stones. On pre-void images, neither right no r left ureteral jets are noted with color Doppler interrogation. (Of note, ureteral jets may not be detectable in up to 25% of cases due to insufficient differences in specific gravity between ureteral and bladder urine). Miscellaneous: No free pelvic fluid. IMPRESSION: 1. No hydronephrosis. 2. Small left renal calculus identified by prior CT scan is not seen by ultrasound. Dictated by: Suzan Suarez MD, PhD on 08/14/2016 at 20:56 Approved by: Suzan Suarez MD, PhD on 08/14/2016 at 20:59
[2016-08-14 23:33] LABS: APPEARANCE,URINE CLEAR (CLEAR,HAZY); COLOR,URINE YELLOW (YELLOW); OCCULT BLOOD,URINE NEGATIVE (NEGATIVE); PH,URINE 6.5 (5.0-8.0); UROBILINOGEN,URINE NORMAL (NORMAL)
[2016-08-14] MEDS ORDERED: _HYDROcodone/APAP 5-325 mg Tablet PO PRN (23:50)
[2016-08-15 00:07] VITALS: BP 166/97; PULSE 65; RESP 14; O2SAT 100
== END 2016-08-15 00:12 | disposition home or self-care (01) ==
LOC: SED 17:33
DX: N20.1 Calculus of ureter (principal); I10 Essential (primary) hypertension; K21.9 Gastro-esophageal reflux disease without esophagitis; J45.909 Unspecified asthma, uncomplicated; F31.9 Bipolar disorder, unspecified; G43.709 Chronic migraine without aura, not intractable, without status migrainosus; M79.7 Fibromyalgia; E11.40 Type 2 diabetes mellitus with diabetic neuropathy, unspecified; K29.70 Gastritis, unspecified, without bleeding; E66.01 Morbid (severe) obesity due to excess calories; F41.9 Anxiety disorder, unspecified; F17.200 Nicotine dependence, unspecified, uncomplicated; H54.41 Blindness, right eye, normal vision left eye; H91.90 Unspecified hearing loss, unspecified ear; Z98.890 Other specified postprocedural states; Z87.442 Personal history of urinary calculi; Z68.42 Body mass index [BMI] 45.0-49.9, adult; Z87.11 Personal history of peptic ulcer disease; Z79.84 Long term (current) use of oral hypoglycemic drugs; Z79.82 Long term (current) use of aspirin; Z91.041 Radiographic dye allergy status; Z88.2 Allergy status to sulfonamides; Z88.1 Allergy status to other antibiotic agents; Z88.5 Allergy status to narcotic agent; Z88.6 Allergy status to analgesic agent; Z88.8 Allergy status to other drugs, medicaments and biological substances
CPT/HCPCS: 76770; 81000; 87086; 87088; 96372; 99285; J0780; J1170

== ENCOUNTER 2016-08-20 06:30 | Emergency (ER) | payer OTHER ==
[~2016-08-20] VITALS: Ht 157.5 cm; Wt 116.4 kg
--- NOTE | 2016-08-20 06:36 | ED.REPORT ---
HPI-General Illness Date of Service August 20, 2016 ED Provider: Anshul Pryor MD 45 year old female with a history of hysterectomy and opioid dependency presents to the ER accompanied by a male chain maker machine complaining of two weeks of left flank pain. Associated symptoms include dysuria, dark-colored urine, nausea , and vomiting. She was seen here in the department on 08/14/2016 for similar, at which time she received an ultrasound that did not indicate kidney stones. Patient is a frequent ER visitor. Nursing Notes Stated Complaint: KIDNEY STONE PAIN/NAUSEA Nursing Notes Reviewed: Yes Allergies: Coded Allergies: Contrast Media (Verified Allergy, Unknown, 08/02/16) Sulfa (Sulfonamide Antibiotics) (Verified Allergy, Unknown, 08/02/16) cephalexin (Verified Allergy, Unknown, 08/02/16) ciprofloxacin (Verified Allergy, Unknown, 08/02/16) dihydroergotamine mesylate (Verified Allergy, Unknown, 08/02/16) ether (Verified Allergy, Unknown, 08/02/16) iodine (Verified Allergy, Unknown, 08/02/16) morphine (Verified Allergy, Unknown, 08/02/16) prednisolone (Verified Allergy, Unknown, Causes Severe depression, 08/02/16) sumatriptan (Verified Allergy, Unknown, 08/02/16) Scheduled Aspirin Chew (Aspirin Chew) 81 Mg Chew 81 MG PO DAILY Clonidine (Clonidine) 0.2 Mg Tablet 0.4 MG PO BID Doxepin (Doxepin) 100 Mg Capsule 75 MG PO BID Duloxetine (Cymbalta) 30 Mg Capsule.dr 60 MG PO DAILY Hydrocortisone Valerate (Hydrocortisone Valerate) 15 Gm Cream..g. 1 GM TP BID Lamotrigine (Lamotrigine) 200 Mg Tablet 150 MG PO BID Lisinopril (Lisinopril) 20 Mg Tablet 20 MG PO DAILY Loratadine (Claritin) 10 Mg Capsule 10 MG PO DAILY Metformin (Metformin) 500 Mg Tablet 2,000 MG PO BID WITH EVENING MEAL Methocarbamol (Robaxin-750) 750 Mg Tablet 1,500 MG PO [id number] Pantoprazole DR (Protonix) 40 Mg Tablet.dr 40 MG PO DAILY Pregabalin (Lyrica) 100 Mg Capsule 1 TAB PO TID Propranolol ER (Propranolol ER) 160 Mg Cap.sa.24h 160 MG PO BID Simvastatin (Simvastatin) 20 Mg Tablet 20 MG PO HS Tamsulosin (Flomax) 0.4 Mg Capsule 0.4 MG PO DAILY Tamsulosin (Flomax) 0.4 Mg Capsule 0.4 MG PO DAILY Zonisamide (Zonisamide) 100 Mg Capsule 100 MG PO HS Scheduled PRN Albuterol HFA (Proair HFA) 8.5 Gm Hfa.aer.ad 2 PUFFS INHALATION Q4H PRN PRN For Shortness of Breath Butalbital/Acetamin/Caff 50-300-40 mg (Fioricet 50-300-40 mg) 1 Each Capsule 1 CAPSULE PO Q4H PRN PRN Headache Epinephrine (Epinephrine) 0.3 Mg/0.3 Ml Auto.injct 0.3 MG IJ PRN For Anaphyllaxis Hydroxyzine Pamoate (Vistaril) 25 Mg Capsule 25 MG PO HS PRN PRN For Insomnia Ibuprofen (Ibuprofen) 800 Mg Tablet 800 MG PO TID PRN PRN For Pain Ketorolac Tromethamine (Ketorolac Tromethamine) 60 Mg/2 Ml Syringe 60 MG IM DAILY PRN PRN For Pain Ondansetron ODT (Zofran ODT) 8 Mg Tablet 8 MG PO Q4H PRN PRN For Nausea Pramipexole Dihydrochloride (Pramipexole Dihydrochloride) 1 Mg Tablet 0.75 MG PO DAILY PRN PRN Restless leg General Time Seen by MD: 06:35 Chief Complaint Other (Left Flank Pain) Hx Obtained From: Patient Arrived By: Walk-in Sudden in Onset?: No Onset Occurred: More than a week ago... (2 weeks) Symptom Duration: Since onset Associated with: Reports: Nausea, Vomiting Pertinent Negative: Pt denies other symptoms Recent Healthcare: Recent doctor visit Similar Sx Previous: No Past Medical History Past Medical History Notes: Frequent ER visits for headache Dr. Meyers, Neurology [facility] Psychiatric prescriber Past Medical History GERD Chronic depression Chronic migraines opioid Dependency and withdrawal headaches asthma Fibromyalgia Neuropathy 85% deaf Blind in right eye Morbid Obesity Spinal stenosis Anxiety Bipolar disorder Reports: Asthma, Diabetes mellitus, Gastritis, Hypertension, Peptic ulcer disease Reports: Obesity Past Surgical History Cholecystectomy Appendectomy Hysterectomy Laparoscopy Tonsillectomy Cholecystectomy Sinus Multiple eye surgeries Colonoscopy Family History Reviewed, not relevant Smoking History Current Every Day Smoker Social History She reports recent graduation with Masters Counseling degree and successfully quit smoking. She has 4 grandchildren. Lives with son and his and their daughter Alcohol Use: Denies alcohol use Drug Use: Denies drug use Other Social History: Frequent ED visitor, , Local resident Occupation Student Ambulatory Status Cane Review of Systems Full Review of Systems Constitutional: Denies: Chills, Fever GI: Reports: Nausea, Vomiting Female: Reports: Dysuria, Flank pain (Left), Denies: , Vaginal bleeding - abnl, Vaginal discharge Complete sys rev & neg: except as marked. Physical Exam Vital Signs Vital Signs Date Time Temp Pulse Resp B/P Pulse Ox O2 Delivery O2 Flow Rate FiO2 08/20/16 10:36 37.1 76 20 185/94 96 Room Air 08/20/16 10:27 37.1 76 20 185/94 96 Room Air 08/20/16 06:38 37.1 72 18 171/90 98 Room Air Initial VS: Reviewed Extremities: Vascular intact, Neuro intact, No swelling, No tenderness Skin: Warm, Dry, No cyanosis Neurologic: Alert, Oriented, Nonfocal General/Constitutional: Awake, Alert, Well developed Appearance / Presentation: Positive: Obese Head / Eyes: Atraumatic, Normocephalic ENT: Airway patent, Mucous membranes moist Neck: Supple, No meningismus, Full range of motion, No swelling, Non-tender, No masses Respiratory / Chest: Breath sounds NL, No respiratory distress, No rales, No rhonchi, No wheezing Cardiovascular: Heart rate NL, Regular rhythm, Heart sounds NL, Cap refill not delayed, Peripheral circulation NL Abdomen: Soft, No guarding, No rebound Mild left side abdominal tenderness Back: Inspection NL, Painless range of motion, Non-tender, No CVA tenderness Interpretation & Diagnostics Lab Results Interpretation Result Diagram: 08/20/16 0711 08/20/16 0711 Test 08/20/16 07:11 08/20/16 07:12 08/20/16 09:02 White Blood Count 11.9th/mm3 (3.8-10.1) Red Blood Count 4.71mil/mm3 (3.90-5.20) Hemoglobin 12.7g/dL (12.0-15.6) Hematocrit 38.0% (35.0-46.0) Mean Corpuscular Volume 80.7fL (81-100) Mean Corpuscular Hemoglobin 27.0pg (27.0-35.0) Mean Corpuscular Hemoglobin Concent 33.4% (32.0-37.0) Red Cell Distribution Width 14.6% (12.3-15.4) Platelet Count 292bil/L (150-400) Neutrophils (%) (Auto) 51.3% (40-74) Lymphocytes (%) (Auto) 37.9% (14-46) Monocytes (%) (Auto) 6.1% (4-12) Eosinophils (%) (Auto) 3.1% (0-5) Basophils (%) (Auto) 0.6% (0-3) Sodium Level 141mEq/L (134-144) Potassium Level 4.1mEq/L (3.5-5.2) Chloride Level 100mEq/L (97-108) Carbon Dioxide Level 27mmol/L (18-29) Blood Urea Nitrogen 10mg/dL (6-24) Creatinine 0.51mg/dL (0.57-1.00) Estimat Glomerular Filtration Rate 188mL/min (>59) Glucose Level 150mg/dL (60-99) Calcium Level 9.7mg/dL (8.5-10.1) Magnesium Level 1.8mg/dL (1.6-2.6) Total Bilirubin 0.2mg/dL (0.0-1.2) Aspartate Amino Transf (AST/SGOT) 18U/L (0-50) Alanine Aminotransferase (ALT/SGPT) 15U/L (0-32) Alkaline Phosphatase 77U/L (25-150) Total Protein 6.7g/dL (6.4-8.4) Albumin 3.8g/dL (3.4-5.0) Lipase 41U/L (13-60) Hold Vyas Top Tube Received (Received) Urine Color Yellow (YELLOW) Urine Appearance Hazy (CLEAR,HAZY) Urine pH 6.0 (5.0-8.0) Urine Specific [place] 1.025 (1.003-1.035) Urine Protein Tracemg/dL (NEG,TRACE) Urine Glucose (UA) Negativemg/dL (NEGATIVE) Urine Ketones Negativemg/dL (NEGATIVE) Urine Occult Blood Negative (NEGATIVE) Urine Nitrite Negative (NEGATIVE) Urine Bilirubin Negative (NEGATIVE) Urine Urobilinogen Normalmg/dL (NORMAL) Urine Leukocyte Esterase Negative (NEGATIVE) Urine RBC 0-2/hpf (0-2) Urine WBC 0-5/hpf (0-5) Urine Epithelial Cells Occasional/hpf (NONE-MOD) Urine Crystals None seen (NONE SEEN) Urine Bacteria Moderate/hpf (NONE-FEW) Urine Hyaline Casts Occasional/lpf (NONE) Urine Granular Casts None seen (NONE SEEN) Urine Waxy Casts None seen (NONE SEEN) Urine Red Blood Cell Casts None seen (NONE SEEN) Urine White Blood Cell Casts None seen (NONE SEEN) Urine Mucus None seen (None Seen) Urine Trichomonas None seen (NONE SEEN) Urine Yeast None (NONE SEEN) Urinalysis Comment None Urine Culture Reflexed Indicated CT Abd / Pelvis Interpretation IMPRESSION: 1. 1 mm nonobstructing left renal cortical stone. 2. No hydronephrosis. 3. Hepatic steatosis. 4. No free fluid or air. 5. No dilated loops of bowel. Dictated by: Suzan Suarez MD, PhD on 08/20/2016 at 10:06 Approved by: Suzan Suarez MD, PhD on 08/20/2016 at 10:12 Study type: Abdominal CT no contrast (KUB) Interpretation / Wet Read by: Interpret - Radiologist Re-Eval/Medical Decision Med Decision/Clinical Course 45-year-old female history of opioid dependence and kidney stones presenting with left flank pain. Her urine is negative for infection. CT KUB showed a small left renal stone 1mm no obstruction. Patient will be discharged with Flomax with plans to take her home medications for pain. Return precautions given regarding worsening abdominal pain, nausea vomiting, fevers, worsening pain, any other new or worsening symptoms. Advised to follow up with primary doctor and urology. Source of Hx: Old records Time of Eval: 10:19 Re-Evaluation/Progress Note: Discussed lab and imaging results and plan to discharge. Patient is amenable to the plan. Return precautions given. All other questions addressed. Counseled Regarding: Diagnosis, Lab results, Need for follow-up, When/why to return to ED Discharge & Departure Primary Impression: Nephrolithiasis Disposition: Home Discharge Condition All VS Reviewed: Yes Condition: Stable Patient Instructions: Kidney Stones (DC) Additional Instructions: You have a non-obstructive stone in your left kidney. Go home and rest. Drink plenty of fluids. Take Flomax as prescribed. This will help you pass the stone. Take ibuprofen as prescribed for pain. Call your primary doctor today to arrange an appointment for tomorrow or Wednesday. Return to the ER if you develop fever, blood in your urine, vomiting, worsening abdominal pain, back pain, or any other concerning symptoms. Referrals: Celina Card (PCP) Deloris Attestation Portions of this note were transcribed by Hugo Maurice. I, Dr. Pryor, personally performed the history, physical exam and medical decision-making; I reviewed and confirmed the accuracy of the information in the transcribed note. Signed by: Deloris Velez, 08/20/2016 at 10:23 copies to: Ceilna Card Ben M MD August 20, 2016 06:36 HUGO MAURICE August 20, 2016 07:07
[2016-08-20 06:38] VITALS: BP 171/90; PULSE 72; RESP 18; O2SAT 98
[2016-08-20] MEDS ORDERED: 0.9% Sodium Chloride 1,000 ML IV ONE (07:04)
[2016-08-20] MEDS ORDERED: Ondansetron 2 mg/mL 2 mL Inj IVPUSH PRN (07:05)
[2016-08-20] MEDS ORDERED: HYDROmorphone 1 mg/mL Inj IVPUSH PRN (07:05)
[2016-08-20 07:22] LABS: BASOPHILS % (AUTO) 0.6 % (0-3); EOSINOPHILS % (AUTO) 3.1 % (0-5); MONOCYTES % (AUTO) 6.1 % (4-12); Mean Corpuscular Volume 80.7 fL (81-100); NEUTROPHILS % (AUTO) 51.3 % (40-74); Platelet Count 292 bil/L (150-400)
[2016-08-20 07:36] LABS: Magnesium 1.8 mg/dL (1.6-2.6)
[2016-08-20 09:21] LABS: APPEARANCE,URINE HAZY (CLEAR,HAZY); COLOR,URINE YELLOW (YELLOW); OCCULT BLOOD,URINE NEGATIVE (NEGATIVE); UROBILINOGEN,URINE NORMAL (NORMAL)
--- NOTE | 2016-08-20 10:13 | DRSVH ---
PROCEDURE: CT KUB ([id number]) INDICATIONS: L flank pain TECHNIQUE: Noncontrast 5 mm thick sections acquired from the diaphragms to the symphysis. 5 mm thick coronal an d sagittal reformats were then performed. For radiation dose reduction, the following was used: aut omated exposure control, adjustment of mA and/or kV according to patient size. COMPARISON: None. FINDINGS: Image quality: Excellent. Lung bases: Lung bases are clear. Heart size is normal. Urinary system: Both kidneys are normal in size. 1 mm nonobstructing stone noted in the inferior jaya e of the left kidney. No hydronephrosis or perinephric fat stranding. Both ureters appear non-dilate d throughout their expected courses. Bladder wall thickness is normal; no calcified bladder stones. Other solid organs: Liver and spleen are normal in size. Diffuse fatty infiltration the liver is not ed. Gallbladder is surgically absent.. Pancreas is normal in contours. No adrenal nodules. Peritoneum and bowel: Unenhanced bowel loops demonstrate normal wall thickness and caliber. No free fluid or air. The appendix is not definitely visualized, however, no inflammatory changes noted jenna cent to the cecum. Nodes and vessels: No retroperitoneal or mesenteric adenopathy by size criteria. Aorta and inferior vena cava are normal in caliber. Abdominal wall: No ventral hernias. Postsurgical changes compatible with ventral hernia repair are n oted. Pelvis: No free pelvic fluid. No inguinal hernias or adenopathy. Incidental note made of phlebolith s in the lower pelvis. Injection granulomas noted in the subcutaneous fat of the buttocks bilaterally . Bones: No suspicious bony lesions. No vertebral body compression fractures. Spine degenerative disc disease and facet arthropathy. IMPRESSION: 1. 1 mm nonobstructing left renal cortical stone. 2. No hydronephrosis. 3. Hepatic steatosis. 4. No free fluid or air. 5. No dilated loops of bowel. Dictated by: Suzan Suarez MD, PhD on 08/20/2016 at 10:06 Approved by: Suzan Suarez MD, PhD on 08/20/2016 at 10:12
[2016-08-20] MEDS ORDERED: IBUP800T28 PO (10:23)
[2016-08-20] MEDS ORDERED: TAMS0.4C98 PO (10:23)
[2016-08-20 10:27] VITALS: BP 185/94; PULSE 76; RESP 20; O2SAT 96
[2016-08-20 10:36] VITALS: BP 185/94; PULSE 76; RESP 20; O2SAT 96
[2016-08-21] MEDS ORDERED: ONDA8TAB10 PO (15:12)
== END 2016-08-20 10:38 | disposition home or self-care (01) ==
LOC: SED 06:30
DX: N20.0 Calculus of kidney (principal); E11.40 Type 2 diabetes mellitus with diabetic neuropathy, unspecified; I10 Essential (primary) hypertension; K21.9 Gastro-esophageal reflux disease without esophagitis; F17.200 Nicotine dependence, unspecified, uncomplicated
CPT/HCPCS: 36415; 74176; 80053; 81000; 83690; 83735; 85025; 87086; 87088; 96361; 96374; 96375; 99285; J1170; J1885; J2405; J7030

== ENCOUNTER 2016-08-21 13:26 | Emergency (ER) | payer OTHER ==
[~2016-08-21] VITALS: Ht 157.5 cm; Wt 116.4 kg
[~2016-08-21 13:26] MED LIST changes: +IBUP800T28 PO
[2016-08-21 13:29] VITALS: BP 144/84; PULSE 80; RESP 16; O2SAT 96
--- NOTE | 2016-08-21 13:58 | ED.REPORT ---
HPI-General Illness Date of Service August 21, 2016 ED Provider: Nadine is a 45-year-old female with a history of frequent ED visits presents with a chief complaint of left-sided abdominal pain. Seen in this department yesterday for similar complaints and diagnosed with a 1 mm nonobstructing left- sided kidney stone without hydronephrosis. Today complains of left-sided abdominal pain, flank pain, dysuria, nausea. Denies fevers, hematuria, vomiting. Nursing Notes Stated Complaint: KIDNEY PAIN/NAUSEA Chief Complaint: Female Abdominal Pain Nursing Notes Reviewed: Yes Allergies: Coded Allergies: Contrast Media (Verified Allergy, Unknown, 08/21/16) Sulfa (Sulfonamide Antibiotics) (Verified Allergy, Unknown, 08/21/16) cephalexin (Verified Allergy, Unknown, 08/21/16) ciprofloxacin (Verified Allergy, Unknown, 08/21/16) dihydroergotamine mesylate (Verified Allergy, Unknown, 08/21/16) ether (Verified Allergy, Unknown, 08/21/16) iodine (Verified Allergy, Unknown, 08/21/16) prednisolone (Verified Allergy, Unknown, Causes Severe depression, 08/21/16 ) sumatriptan (Verified Allergy, Unknown, 08/21/16) Scheduled Aspirin Chew (Aspirin Chew) 81 Mg Chew 81 MG PO DAILY Clonidine (Clonidine) 0.2 Mg Tablet 0.4 MG PO BID Doxepin (Doxepin) 100 Mg Capsule 75 MG PO BID Duloxetine (Cymbalta) 30 Mg Capsule.dr 60 MG PO DAILY Hydrocortisone Valerate (Hydrocortisone Valerate) 15 Gm Cream..g. 1 GM TP BID Lamotrigine (Lamotrigine) 200 Mg Tablet 150 MG PO BID Lisinopril (Lisinopril) 20 Mg Tablet 20 MG PO DAILY Loratadine (Claritin) 10 Mg Capsule 10 MG PO DAILY Metformin (Metformin) 500 Mg Tablet 2,000 MG PO BID WITH EVENING MEAL Methocarbamol (Robaxin-750) 750 Mg Tablet 1,500 MG PO [id number] Pantoprazole DR (Protonix) 40 Mg Tablet.dr 40 MG PO DAILY Pregabalin (Lyrica) 100 Mg Capsule 1 TAB PO TID Propranolol ER (Propranolol ER) 160 Mg Cap.sa.24h 160 MG PO BID Simvastatin (Simvastatin) 20 Mg Tablet 20 MG PO HS Tamsulosin (Flomax) 0.4 Mg Capsule 0.4 MG PO DAILY Tamsulosin (Flomax) 0.4 Mg Capsule 0.4 MG PO DAILY Zonisamide (Zonisamide) 100 Mg Capsule 100 MG PO HS Scheduled PRN Albuterol HFA (Proair HFA) 8.5 Gm Hfa.aer.ad 2 PUFFS INHALATION Q4H PRN PRN For Shortness of Breath Butalbital/Acetamin/Caff 50-300-40 mg (Fioricet 50-300-40 mg) 1 Each Capsule 1 CAPSULE PO Q4H PRN PRN Headache Epinephrine (Epinephrine) 0.3 Mg/0.3 Ml Auto.injct 0.3 MG IJ PRN For Anaphyllaxis Hydroxyzine Pamoate (Vistaril) 25 Mg Capsule 25 MG PO HS PRN PRN For Insomnia Ibuprofen (Ibuprofen) 800 Mg Tablet 800 MG PO TID PRN PRN For Pain Ketorolac Tromethamine (Ketorolac Tromethamine) 60 Mg/2 Ml Syringe 60 MG IM DAILY PRN PRN For Pain Ondansetron ODT (Zofran ODT) 8 Mg Tablet 8 MG PO Q4H PRN PRN For Nausea Ondansetron ODT (Ondansetron ODT) 8 Mg Tab.rapdis 8 MG PO TID PRN PRN For Nausea Pramipexole Dihydrochloride (Pramipexole Dihydrochloride) 1 Mg Tablet 0.75 MG PO DAILY PRN PRN Restless leg General Time Seen by MD: 13:57 Chief Complaint Abdominal pain Past Medical History Past Medical History Notes: Frequent ER visits for headache Dr. Meyers, Neurology [facility], Psychiatric prescriber Past Medical History GERD Chronic depression Chronic migraines opioid Dependency and withdrawal headaches asthma Fibromyalgia Neuropathy 85% deaf Blind in right eye Morbid Obesity Spinal stenosis Anxiety Bipolar disorder Reports: Asthma, Diabetes mellitus, Gastritis, Hypertension, Peptic ulcer disease Reports: Obesity Past Surgical History Cholecystectomy Appendectomy Hysterectomy Laparoscopy Tonsillectomy Cholecystectomy Sinus Multiple eye surgeries Colonoscopy Family History Reviewed, not relevant Smoking History Current Every Day Smoker Social History She reports recent graduation with Masters Counseling degree and successfully quit smoking. She has 4 grandchildren. Lives with son and his and their daughter Alcohol Use: Denies alcohol use Drug Use: Denies drug use Other Social History: Frequent ED visitor, , Local resident Occupation Student Ambulatory Status Cane Review of Systems Negative unless stated otherwise in history of present illness Physical Exam General: Well appearing, well developed, morbidly obese, moderate to severe distress. Head: Atraumatic, normocephalic. Eyes: No scleral icterus or injection. No discharge. Vision grossly intact. ENT: Voice clear, hearing grossly intact. Respiratory: Regular rate and rhythm. Breath sounds present, clear to auscultation and equal bilaterally. No respiratory distress. No increased work of breathing, speaks in complete sentences. Cardiovascular: Regular rate and rhythm, without murmur, gallop or rub. No pedal edema. Gastrointestinal: Obese abdomen very tender to light touch in left quadrants. Normal to inspection. Bowel sounds normoactive. Back: Normal to inspection, mild CVA tenderness to percussion. Skin: Warm and dry. Neurological: Grossly nonfocal. Psychological: Alert and oriented. Speech appropriate, linear and logical. Behavior appropriate. Vital Signs Vital Signs Date Time Temp Pulse Resp B/P Pulse Ox O2 Delivery O2 Flow Rate FiO2 08/21/16 13:29 36.9 80 16 144/84 96 Room Air Initial VS: Vital signs normal Re-Eval/Medical Decision Med Decision/Clinical Course 45-year-old female presents with a history of many emergency Department visits for pain complaints presents with a chief complaint of left-sided abdominal flank pain. Seen in this department for similar symptoms yesterday and diagnosed with a 1 mm nonobstructing kidney stone. Negative hydronephrosis. Discharged with Toradol and ibuprofen. Patient reports increasing pain today, and is extremely tender in the left quadrants on physical examination. Mild left CVA tenderness. Vital signs normal. Urinalysis is essentially normal with trace hemoglobin. After discussed the case with Dr. jaxon torres, we do not see an indication to reperform CT scan or altered the treatment plan. Her pain appears out of proportion with objective findings. Advise [id number] analgesia with ibuprofen, as well as continued Flomax prescribed at her previous visit. Provided prescription for ondansetron. She requests narcotic pain medications which is denied. She is quite upset at this and wishes to see another provider. Dr. morrison, met with and examined the patient. He requests I provide her with one [place] 5/325 mg in the department and advises ibuprofen for analgesia at home. Advise regarding primary care follow-up, emergency return precautions. Attending attestation: I saw this patient in conjunction with Johnny Christian PA-C. I agree with the workup, evaluation, treatment and disposition. Of note, the patient was quite upset that she did not receive a prescription for narcotic pain medications however I see no indication at this time to prescribe opiates to this patient. She has been advised to follow closely with primary care physician. Prior to discharge follow-up and return precautions were reviewed in detail with the patient who verbalized understanding and agreement with the plan. The patient was discharged in stable condition. Darryn Morrison MD Discharge & Departure Primary Impression: Nephrolithiasis Additional Impression: Opiate dependence Substance use status: with unspecified opioid-induced disorder Qualified Code : F11.29 - Opioid dependence with unspecified opioid-induced disorder Disposition: Home Discharge Condition All VS Reviewed: Yes Condition: Stable Patient Instructions: Kidney Stones (ED) Additional Instructions: Evaluation in the emergency department for continuing left-sided back and abdominal pain involved history, physical examination and urinalysis. These do not indicate there has been a significant change since your visit yesterday, and no indication of infection or obstruction. We believe you are stable and safe to be discharged. Continue taking the Flomax as prescribed to help pass the stone. Rest and drink plenty of fluids. The pain is best treated with 800 mg of ibuprofen (Advil, Motrin) every 6 hours , or 1000 mg of acetaminophen (Tylenol) every 6 hours. These drugs can be taken at the same time for more severe pain. I will write a prescription for antinausea medication. Contact your primary care provider this afternoon to arrange follow-up. Return to the emergency department for fever, blood in your urine, vomiting. Referrals: Celina Card (PCP) EDSupervising Provider for APC: Darryn Morrison MD Attending Statement Attending attestation: I saw this patient in conjunction with Johnny Christian PA-C. I was present for all sidhu portions of the history taking and physical examination. I agree with the workup, evaluation, treatment and disposition. Patient presents with ongoing pain related to nephrolithiasis. Long reported history of opiate dependence. She is quite upset that we have not sent her home with a prescription for opiates however we are not comfortable doing so at this time. Darryn Morrison MD copies to: Celina Card Beck O MD August 21, 2016 13:58 Johnny Christian PA-C August 21, 2016 14:52
[2016-08-21] MEDS ORDERED: HYDROcodone-APAP 5-325 mg Tablet PO ONE (15:10)
[2016-08-21] MEDS ORDERED: ONDA8TAB10 PO (15:12)
== END 2016-08-21 15:25 | disposition home or self-care (01) ==
LOC: SED 13:26
DX: N20.0 Calculus of kidney (principal); F11.29 Opioid dependence with unspecified opioid-induced disorder; K21.9 Gastro-esophageal reflux disease without esophagitis; J45.909 Unspecified asthma, uncomplicated; F41.9 Anxiety disorder, unspecified; F31.9 Bipolar disorder, unspecified; E11.9 Type 2 diabetes mellitus without complications; I10 Essential (primary) hypertension; F17.200 Nicotine dependence, unspecified, uncomplicated; Z91.041 Radiographic dye allergy status; Z88.2 Allergy status to sulfonamides; Z88.8 Allergy status to other drugs, medicaments and biological substances; Z88.1 Allergy status to other antibiotic agents; Z79.82 Long term (current) use of aspirin; Z79.84 Long term (current) use of oral hypoglycemic drugs

== ENCOUNTER 2016-08-24 02:37 | Emergency (ER) | payer OTHER ==
[~2016-08-24] VITALS: Ht 157.5 cm; Wt 116.4 kg
[~2016-08-24 02:37] MED LIST changes: +ONDA8TAB10 PO
[2016-08-24 02:41] VITALS: BP 169/92; PULSE 75; RESP 16; O2SAT 99
[2016-08-24 03:09] VITALS: BP 128/66; PULSE 73; RESP 18; O2SAT 97
--- NOTE | 2016-08-24 04:03 | ED.REPORT ---
HPI-Abd Pain F 40 and Over Date of Service August 24, 2016 ED Provider: Praneeth Last MD Patient is a 45 year old female with a hx of frequent ED visits and a recent dx of a 1 mm nonobstructing L renal cortical stone presents to the ED for the 4th time in 10 days complaining of L flank pain onset 1 hr prior to arrival. Associated symptoms include vomiting. She denies hematuria, fever, or any other symptoms. She has had 2 CT's, an ultrasound, and an Xray since the onset of her symptoms. She has been taking Ibuprofen, Flomax, and muscle relaxers. Patient denies any mechanism of injury. Nursing Notes Stated Complaint: KIDNEY PAIN Chief Complaint: Female Abdominal Pain Nursing Notes Reviewed: Yes Allergies: Coded Allergies: Contrast Media (Verified Allergy, Unknown, 08/21/16) Sulfa (Sulfonamide Antibiotics) (Verified Allergy, Unknown, 08/21/16) cephalexin (Verified Allergy, Unknown, 08/21/16) ciprofloxacin (Verified Allergy, Unknown, 08/21/16) dihydroergotamine mesylate (Verified Allergy, Unknown, 08/21/16) ether (Verified Allergy, Unknown, 08/21/16) iodine (Verified Allergy, Unknown, 08/21/16) prednisolone (Verified Allergy, Unknown, Causes Severe depression, 08/21/16 ) sumatriptan (Verified Allergy, Unknown, 08/21/16) Scheduled Aspirin Chew (Aspirin Chew) 81 Mg Chew 81 MG PO DAILY Clonidine (Clonidine) 0.2 Mg Tablet 0.4 MG PO BID Doxepin (Doxepin) 100 Mg Capsule 75 MG PO BID Duloxetine (Cymbalta) 30 Mg Capsule.dr 60 MG PO DAILY Hydrocortisone Valerate (Hydrocortisone Valerate) 15 Gm Cream..g. 1 GM TP BID Lamotrigine (Lamotrigine) 200 Mg Tablet 150 MG PO BID Lisinopril (Lisinopril) 20 Mg Tablet 20 MG PO DAILY Loratadine (Claritin) 10 Mg Capsule 10 MG PO DAILY Metformin (Metformin) 500 Mg Tablet 2,000 MG PO BID WITH EVENING MEAL Methocarbamol (Robaxin-750) 750 Mg Tablet 1,500 MG PO [id number] Pantoprazole DR (Protonix) 40 Mg Tablet.dr 40 MG PO DAILY Pregabalin (Lyrica) 100 Mg Capsule 1 TAB PO TID Propranolol ER (Propranolol ER) 160 Mg Cap.sa.24h 160 MG PO BID Simvastatin (Simvastatin) 20 Mg Tablet 20 MG PO HS Tamsulosin (Flomax) 0.4 Mg Capsule 0.4 MG PO DAILY Tamsulosin (Flomax) 0.4 Mg Capsule 0.4 MG PO DAILY Zonisamide (Zonisamide) 100 Mg Capsule 100 MG PO HS Scheduled PRN Albuterol HFA (Proair HFA) 8.5 Gm Hfa.aer.ad 2 PUFFS INHALATION Q4H PRN PRN For Shortness of Breath Butalbital/Acetamin/Caff 50-300-40 mg (Fioricet 50-300-40 mg) 1 Each Capsule 1 CAPSULE PO Q4H PRN PRN Headache Epinephrine (Epinephrine) 0.3 Mg/0.3 Ml Auto.injct 0.3 MG IJ PRN For Anaphyllaxis Hydroxyzine Pamoate (Vistaril) 25 Mg Capsule 25 MG PO HS PRN PRN For Insomnia Ibuprofen (Ibuprofen) 800 Mg Tablet 800 MG PO TID PRN PRN For Pain Ketorolac Tromethamine (Ketorolac Tromethamine) 60 Mg/2 Ml Syringe 60 MG IM DAILY PRN PRN For Pain Ondansetron ODT (Zofran ODT) 8 Mg Tablet 8 MG PO Q4H PRN PRN For Nausea Ondansetron ODT (Ondansetron ODT) 8 Mg Tab.rapdis 8 MG PO TID PRN PRN For Nausea Pramipexole Dihydrochloride (Pramipexole Dihydrochloride) 1 Mg Tablet 0.75 MG PO DAILY PRN PRN Restless leg General Time Seen by MD: 03:56 Chief Complaint Flank pain left Hx Obtained From: Patient Arrived By: Walk-in Sudden in Onset?: Yes Onset Occurred: 1 - 4 hours ago Symptom Duration: Since onset Recent Healthcare: Recent doctor visit, Previous diagnosis, Prior workup Similar Sx Previous: Yes Risk Factors )( AAA Risk Stratification Hypertension Smoking Risk factors reviewed Past Medical History Past Medical History Notes: Frequent ER visits for headache Dr. Meyers, Neurology [facility], Psychiatric prescriber Past Medical History GERD Chronic depression Chronic migraines opioid Dependency and withdrawal headaches asthma Fibromyalgia Neuropathy 85% deaf Blind in right eye Morbid Obesity Spinal stenosis Anxiety Bipolar disorder Reports: Asthma, Cancer (Uterine ), Diabetes mellitus, Gastritis, Hypertension, Peptic ulcer disease Reports: Obesity Past Surgical History Cholecystectomy Appendectomy Hysterectomy Laparoscopy Tonsillectomy Cholecystectomy Sinus Multiple eye surgeries Colonoscopy Family History Reviewed, not relevant Smoking History Current Every Day Smoker Social History She reports recent graduation with Masters Counseling degree and successfully quit smoking. She has 4 grandchildren. Lives with son and his and their daughter Alcohol Use: Denies alcohol use Drug Use: Denies drug use Other Social History: Frequent ED visitor, , Local resident Occupation Student Ambulatory Status Cane Review of Systems Constitutional: Denies: Fever GI: Reports: Vomiting Female: Reports: Flank pain, Denies: Hematuria Complete sys rev & neg: except as marked. Physical Exam Vital Signs Vital Signs (First) Date Time Temp Pulse Resp B/P Pulse Ox O2 Delivery O2 Flow Rate FiO2 08/24/16 02:41 36.4 75 16 169/92 99 Room Air Initial VS: Reviewed, Vital signs normal Head / Eyes: Atraumatic, Normocephalic Neck: Full range of motion Skin: Warm, Dry Neurologic: Alert, Oriented, Nonfocal General/Constitutional: Awake, Alert, No acute distress, Well developed Appearance / Presentation: Positive: Obese Respiratory / Chest: Breath sounds NL, Breath sounds = bilat, No respiratory distress Cardiovascular: Heart rate NL, Regular rhythm, Heart sounds NL Abdomen: Atraumatic, Soft, Non-tender Back: Atraumatic, Inspection NL, No midline vertebral tend, No CVA tenderness Re-Eval/Medical Decision Med Decision/Clinical Course 45-year-old female presents with right flank pain. She has had multiple visits in the last 2 weeks related to this. Full contrast abdominal pelvic CT scan, CT KUB, retroperitoneal ultrasound, and acute abdominal x-ray series have all been negative, as have labs and physical examinations. She does have a 1 mm stone in the cortex of the left kidney, but it is highly unlikely that that is the source of her pain. I suspect that the origin of the pain is musculoskeletal. She has had a problem in the past with opioid use disorder, so ongoing narcotic medications would be contraindicated. Tonight she was given an injection of Toradol and Dilaudid. She requested but I declined to give her a prescription of oxycodone. She will continue her current pain medications (ibuprofen, Lyrica, and methocarbamol). It is recommended that she get back into physical therapy to try and reverse her deconditioning. Re-Evaluation/Progress : Time of Eval: 04:45 )( Re-Eval Abdomen: Soft Re-Evaluation/Progress Note: Discussed plan for discharge. Patient understands and agrees with plan. All questions addressed at this time. Counseled Regarding: Diagnosis, Need for follow-up, When/why to return to ED Discharge & Departure Primary Impression: Back pain Back pain location: low back pain Chronicity: acute Back pain laterality: right Sciatica presence: without sciatica Qualified Code: M54.5 - Low back pain Disposition: Home Discharge Condition All VS Reviewed: Yes Patient Instructions: Acute Low Back Pain (ED) Additional Instructions: The kidney stone sitting in your kidney is not the cause of your pain. It is not moving and not obstructing, so is not causing pain. Here previous 2 CT scans have been normal in all other areas also, showing no serious cause of the pain. I suspect that your pain is from a musculoskeletal injury. Recommend that you continue your present medications and ask your provider for a physical therapy referral to work on pain relief, stretching and strengthening. You received Toradol 30 mg and Dilaudid 2 mg in the emergency room. I do not recommend that you use ongoing narcotic pain medications for back pain. Referrals: Celina Card (PCP) Scribe Attestation Portions of this note were transcribed by Jason Cordoba. I, Dr. Last personally performed the history, physical exam and medical decision-making; I reviewed and confirmed the accuracy of the information in the transcribed note. Signed by: Jason Cordoba 08/24/16, 0507 copies to: Celina Card Howard L MD August 24, 2016 04:03 JASON CORDOBA August 24, 2016 04:13
[2016-08-24] MEDS ORDERED: HYDROmorphone 1 mg/mL Inj IM ONE (04:30)
[2016-08-24 05:15] VITALS: BP 164/81; PULSE 75; RESP 16; O2SAT 96
== END 2016-08-24 05:16 | disposition home or self-care (01) ==
LOC: SED 02:37
DX: M54.5 Low back pain (principal); R11.10 Vomiting, unspecified; I10 Essential (primary) hypertension; J45.909 Unspecified asthma, uncomplicated; E11.40 Type 2 diabetes mellitus with diabetic neuropathy, unspecified; M79.7 Fibromyalgia; K21.9 Gastro-esophageal reflux disease without esophagitis; F32.9 Major depressive disorder, single episode, unspecified; F31.9 Bipolar disorder, unspecified; F17.200 Nicotine dependence, unspecified, uncomplicated; Z79.82 Long term (current) use of aspirin; Z79.84 Long term (current) use of oral hypoglycemic drugs; Z88.1 Allergy status to other antibiotic agents; Z88.2 Allergy status to sulfonamides; Z88.8 Allergy status to other drugs, medicaments and biological substances; Z91.041 Radiographic dye allergy status
CPT/HCPCS: 96372; 99284; J1170; J1885

== ENCOUNTER 2016-08-26 05:35 | Emergency (ER) | payer OTHER ==
[~2016-08-26] VITALS: Ht 157.5 cm; Wt 116.4 kg
[2016-08-26 05:56] VITALS: BP 153/93; PULSE 76; RESP 16; O2SAT 98
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
[2016-08-26] MEDS ORDERED: Ondansetron 2 mg/mL 2 mL Inj IVPUSH ONE (06:15)
[2016-08-26] MEDS ORDERED: 0.9% Sodium Chloride 1,000 ML IV ONE (06:15)
[2016-08-26] MEDS ORDERED: ProchlorPERazine 5 mg/mL 2 mL Inj IVPUSH ONE (06:15)
[2016-08-26 06:58] LABS: BASOPHILS % (AUTO) 0.4 % (0-3); EOSINOPHILS % (AUTO) 2.7 % (0-5); MONOCYTES % (AUTO) 5.6 % (4-12); Mean Corpuscular Hemoglobin 26.4 pg (27.0-35.0); Mean Corpuscular Volume 84.8 fL (81-100); NEUTROPHILS % (AUTO) 51.5 % (40-74); Platelet Count 260 bil/L (150-400)
[2016-08-26 09:12] LABS: Lipase 33 U/L (13-60)
[2016-08-26 09:27] VITALS: BP 152/64; PULSE 70; RESP 16; O2SAT 95
[2016-08-26 10:46] LABS: APPEARANCE,URINE CLEAR (CLEAR,HAZY); COLOR,URINE YELLOW (YELLOW); OCCULT BLOOD,URINE NEGATIVE (NEGATIVE); PH,URINE 5.5 (5.0-8.0); UROBILINOGEN,URINE NORMAL (NORMAL)
[2016-08-26] MEDS ORDERED: ONDA8TAB10 PO (11:01)
== END 2016-08-26 11:12 | disposition home or self-care (01) ==
LOC: SED 05:35
DX: R10.32 Left lower quadrant pain (principal); R11.2 Nausea with vomiting, unspecified; R31.9 Hematuria, unspecified; M54.9 Dorsalgia, unspecified; J45.909 Unspecified asthma, uncomplicated; I10 Essential (primary) hypertension; E11.40 Type 2 diabetes mellitus with diabetic neuropathy, unspecified; K21.9 Gastro-esophageal reflux disease without esophagitis; F31.9 Bipolar disorder, unspecified; F32.9 Major depressive disorder, single episode, unspecified; M79.7 Fibromyalgia; F17.200 Nicotine dependence, unspecified, uncomplicated; Z90.49 Acquired absence of other specified parts of digestive tract; Z79.82 Long term (current) use of aspirin; Z79.84 Long term (current) use of oral hypoglycemic drugs; Z88.1 Allergy status to other antibiotic agents; Z88.2 Allergy status to sulfonamides; Z88.8 Allergy status to other drugs, medicaments and biological substances; Z91.041 Radiographic dye allergy status
CPT/HCPCS: 36415; 80053; 81000; 83690; 84703; 85025; 87086; 87088; 96361; 96374; 96375; 99285; J0780; J1885; J2405; J7030

== ENCOUNTER 2016-09-04 03:24 | Emergency (ER) | payer OTHER ==
[~2016-09-04] VITALS: Ht 157.5 cm; Wt 113.6 kg
[2016-09-04 03:48] VITALS: BP 131/67; PULSE 72; RESP 18; O2SAT 98
[2016-09-04 04:17] LABS: BASOPHILS % (AUTO) 0.5 % (0-3); EOSINOPHILS % (AUTO) 2.6 % (0-5); MONOCYTES % (AUTO) 6.3 % (4-12); Mean Corpuscular Volume 86.4 fL (81-100); NEUTROPHILS % (AUTO) 55.7 % (40-74); Platelet Count 249 bil/L (150-400)
[2016-09-04 04:50] LABS: Magnesium 1.6 mg/dL (1.6-2.6)
--- NOTE | 2016-09-04 06:31 | ED.REPORT ---
HPI-Abd Pain F 40 and Over Date of Service Sep 04, 2016 ED Provider: Jono Minor MD Pt is a 45 year old female with a hx of kidney stones and migraines presenting to the ED complaining of left flank pain. Associated symptoms include nausea, vomiting, lightheadedness due to pain, and dysuria (for 2-3 days). Denies fever or any other symptoms at this time. She was seen in the ED 1 week prior with similar symptoms, which she reports are now more severe. Pt has been taking 600 mg 4x daily Ibuprofen and 500mg 4x per day Tylenol for pain. Nursing Notes Stated Complaint: KIDNEY PAIN Chief Complaint: Female Abdominal Pain Nursing Notes Reviewed: Yes ([employer], [facility] not reconciled ) Allergies: Coded Allergies: Contrast Media (Verified Allergy, Unknown, 08/21/16) Sulfa (Sulfonamide Antibiotics) (Verified Allergy, Unknown, 08/21/16) cephalexin (Verified Allergy, Unknown, 08/21/16) ciprofloxacin (Verified Allergy, Unknown, 08/21/16) dihydroergotamine mesylate (Verified Allergy, Unknown, 08/21/16) ether (Verified Allergy, Unknown, 08/21/16) iodine (Verified Allergy, Unknown, 08/21/16) prednisolone (Verified Allergy, Unknown, Causes Severe depression, 08/21/16 ) sumatriptan (Verified Allergy, Unknown, 08/21/16) Scheduled Aspirin Chew (Aspirin Chew) 81 Mg Chew 81 MG PO DAILY Clonidine (Clonidine) 0.2 Mg Tablet 0.4 MG PO BID Doxepin (Doxepin) 100 Mg Capsule 75 MG PO BID Duloxetine (Cymbalta) 30 Mg Capsule.dr 60 MG PO DAILY Hydrocortisone Valerate (Hydrocortisone Valerate) 15 Gm Cream..g. 1 GM TP BID Lamotrigine (Lamotrigine) 200 Mg Tablet 150 MG PO BID Lisinopril (Lisinopril) 20 Mg Tablet 20 MG PO DAILY Loratadine (Claritin) 10 Mg Capsule 10 MG PO DAILY Metformin (Metformin) 500 Mg Tablet 2,000 MG PO BID WITH EVENING MEAL Methocarbamol (Robaxin-750) 750 Mg Tablet 1,500 MG PO h7lmner Pantoprazole DR (Protonix) 40 Mg Tablet.dr 40 MG PO DAILY Pregabalin (Lyrica) 100 Mg Capsule 1 TAB PO TID Propranolol ER (Propranolol ER) 160 Mg Cap.sa.24h 160 MG PO BID Simvastatin (Simvastatin) 20 Mg Tablet 20 MG PO HS Tamsulosin (Flomax) 0.4 Mg Capsule 0.4 MG PO DAILY Tamsulosin (Flomax) 0.4 Mg Capsule 0.4 MG PO DAILY Zonisamide (Zonisamide) 100 Mg Capsule 100 MG PO HS Scheduled PRN Albuterol HFA (Proair HFA) 8.5 Gm Hfa.aer.ad 2 PUFFS INHALATION Q4H PRN PRN For Shortness of Breath Butalbital/Acetamin/Caff 50-300-40 mg (Fioricet 50-300-40 mg) 1 Each Capsule 1 CAPSULE PO Q4H PRN PRN Headache Epinephrine (Epinephrine) 0.3 Mg/0.3 Ml Auto.injct 0.3 MG IJ PRN For Anaphyllaxis Hydroxyzine Pamoate (Vistaril) 25 Mg Capsule 25 MG PO HS PRN PRN For Insomnia Ibuprofen (Ibuprofen) 800 Mg Tablet 800 MG PO TID PRN PRN For Pain Ketorolac Tromethamine (Ketorolac Tromethamine) 60 Mg/2 Ml Syringe 60 MG IM DAILY PRN PRN For Pain Ondansetron ODT (Zofran ODT) 8 Mg Tablet 8 MG PO Q4H PRN PRN For Nausea Ondansetron ODT (Ondansetron ODT) 8 Mg Tab.rapdis 8 MG PO TID PRN PRN For Nausea Ondansetron ODT (Ondansetron ODT) 8 Mg Tab.rapdis 8 MG PO Q4H PRN PRN For Nausea Ondansetron ODT (Ondansetron ODT) 8 Mg Tab.rapdis 8 MG PO Q4H PRN PRN For Nausea Pramipexole Dihydrochloride (Pramipexole Dihydrochloride) 1 Mg Tablet 0.75 MG PO DAILY PRN PRN Restless leg Promethazine (Promethazine) 25 Mg Tablet 25 MG PO Q6H PRN PRN For Nausea General Time Seen by MD: 06:05 Chief Complaint Flank pain left Hx Obtained From: Patient Arrived By: Walk-in Sudden in Onset?: No Onset Occurred: 3 days ago Symptom Duration: Since onset Progression since Onset: Constant Location: : Back: Flank left Quality: Painful Radiation: : Abdomen lower Severity: Current: Moderate Severity: Maximum: Severe Recent Healthcare: No recent hospitalization, Recent doctor visit Similar Sx Previous: Yes Past Medical History Past Medical History Notes: (~24 ED Visits to [facility] this year, Pateint seen 08/20 and 08/22, and 08/26 for Flank pain - Neg CT and U/S for clear cause of pain, 1mm non-obstructing nephrolithiasis Frequent ER visits Dr. Meyers, Neurology [facility], Psychiatric prescriber Past Medical History GERD Chronic depression Chronic migraines opioid Dependency and withdrawal headaches asthma Fibromyalgia Neuropathy 85% deaf Blind in right eye Morbid Obesity Spinal stenosis Anxiety Bipolar disorder Reports: Asthma, Cancer, Diabetes mellitus, Gastritis, Hypertension, Peptic ulcer disease Reports: Obesity Past Surgical History Cholecystectomy Appendectomy Hysterectomy Laparoscopy Tonsillectomy Cholecystectomy Sinus Multiple eye surgeries Colonoscopy Family History Reviewed, not relevant Smoking History Current Every Day Smoker Social History She reports recent graduation with Masters Counseling degree and successfully quit smoking. She has 4 grandchildren. Lives with son and his and their daughter Alcohol Use: Denies alcohol use Drug Use: Denies drug use Other Social History: Frequent ED visitor, , Local resident Occupation Student Ambulatory Status Cane Review of Systems Constitutional: Denies: Fever GI: Reports: Nausea, Vomiting Female: Reports: Dysuria, Flank pain Complete sys rev & neg: except as marked. Neurologic: Reports: Lightheaded Physical Exam Vital Signs Vital Signs (First) Date Time Temp Pulse Resp B/P Pulse Ox O2 Delivery O2 Flow Rate FiO2 09/04/16 03:48 37.0 72 18 131/67 98 Room Air Initial VS: Reviewed, Vital signs normal Head / Eyes: Atraumatic, Normocephalic, PERRL ENT: Mucous membranes moist, Conjunctiva normal, No scleral icterus Extremities: Vascular intact, Neuro intact, No swelling, No tenderness Skin: Warm, Dry, No cyanosis Neurologic: Alert, Oriented, Nonfocal Psychiatric: Mood/affect normal, Behavior normal, Normal thought content General/Constitutional: Awake, Alert Behavior: Positive: Anxious Appearance / Presentation: Positive: Obese Doesn't appear in pain but screams with light touch Respiratory / Chest: Breath sounds NL, Breath sounds = bilat, No respiratory distress, No rales, No rhonchi, No wheezing, No stridor Cardiovascular: Heart rate NL, Regular rhythm, Heart sounds NL, Peripheral circulation NL Abdomen: Atraumatic, Soft Interpretation & Diagnostics Lab Results Interpretation Result Diagram: 09/04/16 0410 09/04/16 0410 Test 09/04/16 04:10 09/04/16 04:55 White Blood Count 11.0th/mm3 (3.8-10.1) Red Blood Count 4.34mil/mm3 (3.90-5.20) Hemoglobin 11.7g/dL (12.0-15.6) Hematocrit 37.5% (35.0-46.0) Mean Corpuscular Volume 86.4fL (81-100) Mean Corpuscular Hemoglobin 27.0pg (27.0-35.0) Mean Corpuscular Hemoglobin Concent 31.2% (32.0-37.0) Red Cell Distribution Width 14.1% (12.3-15.4) Platelet Count 249bil/L (150-400) Neutrophils (%) (Auto) 55.7% (40-74) Lymphocytes (%) (Auto) 33.9% (14-46) Monocytes (%) (Auto) 6.3% (4-12) Eosinophils (%) (Auto) 2.6% (0-5) Basophils (%) (Auto) 0.5% (0-3) Sodium Level 141mEq/L (134-144) Potassium Level 4.0mEq/L (3.5-5.2) Chloride Level 103mEq/L (97-108) Carbon Dioxide Level 25mmol/L (18-29) Blood Urea Nitrogen 8mg/dL (6-24) Creatinine 0.57mg/dL (0.57-1.00) Estimat Glomerular Filtration Rate 165mL/min (>59) Glucose Level 171mg/dL (60-99) Calcium Level 9.0mg/dL (8.5-10.1) Magnesium Level 1.6mg/dL (1.6-2.6) Total Bilirubin 0.2mg/dL (0.0-1.2) Aspartate Amino Transf (AST/SGOT) 14U/L (0-50) Alanine Aminotransferase (ALT/SGPT) 11U/L (0-32) Alkaline Phosphatase 81U/L (25-150) Total Protein 6.0g/dL (6.4-8.4) Albumin 3.3g/dL (3.4-5.0) Lipase 41U/L (13-60) Hold Vyas Top Tube Received (Received) Urine Color Yellow (YELLOW) Urine Appearance Hazy (CLEAR,HAZY) Urine pH 5.5 (5.0-8.0) Urine Specific [place] 1.030 (1.003-1.035) Urine Protein Negativemg/dL (NEG,TRACE) Urine Glucose (UA) Negativemg/dL (NEGATIVE) Urine Ketones Negativemg/dL (NEGATIVE) Urine Occult Blood Negative (NEGATIVE) Urine Nitrite Negative (NEGATIVE) Urine Bilirubin Negative (NEGATIVE) Urine Urobilinogen Normalmg/dL (NORMAL) Urine Leukocyte Esterase Negative (NEGATIVE) Urine RBC 0-2/hpf (0-2) Urine WBC 0-5/hpf (0-5) Urine Epithelial Cells Occasional/hpf (NONE-MOD) Urine Crystals Oxalic acid crystals (NONE Urine Bacteria Moderate/hpf (NONE-FEW) Urine Hyaline Casts None/lpf (NONE) Urine Granular Casts None seen (NONE SEEN) Urine Waxy Casts None seen (NONE SEEN) Urine Red Blood Cell Casts None seen (NONE SEEN) Urine White Blood Cell Casts Rare (NONE SEEN) Urine Mucus None seen (None Seen) Urine Trichomonas None seen (NONE SEEN) Urine Yeast None (NONE SEEN) Urinalysis Comment None Urine Culture Reflexed Indicated Lab Results Interpretation: CBC white count 11, nonspecific CMP normal Urinalysis without blood, trace bacteria without white cells, leukocytes or markers of infection US Renal/Urinary Tract US RENAL SONOGRAM: IMPRESSION: 1. Increased hepatic echogenicity noted likely related to fatty infiltration of the liver but other sources of hepatocellular disease cannot be excluded. Recommend clinical correlation. 2. No source for left flank pain identified. Dictated by: Alfredo Carey RRA Interpreted: Aroldo Monzon MD on 09/04/2016 at 9:21 Exam Interpreted by: Radiologist Re-Eval/Medical Decision Med Decision/Clinical Course This is a 45-year-old female returns to her tremor complaining of worsening and uncontrolled severe left flank pain. She is convinced she has kidney stone, but she is also had a multitude of ED visits frequently for headaches, but over the past 6 weeks has had a multitude for this left flank pain. She has already had 2 CT scans, both negative for clear acute pathology-an incidental 1 mm stone in the left kidney was seen-but no urolithiasis was identified. She has already had a previous ultrasound that was also negative. Urinalysis and lab work is also been unremarkable. Returns today saying increasing pain, blood in the urine, and worsening symptoms. She reports nausea and vomiting. Meanwhile on exam the patient while she says she is in the worst pain of her life, does not appear in externally appreciable visible discomfort. She does not have any overt colicky component. Just light touch to the left flank. She says causes severe pain-the abdomen is soft, and there are no signs of peritonitis clinically. Patient's had multiple provider visits. Her vitals were normal. Clinically and she is [id number] given the multitude of visits workup was reinitiated. Blood work including kidney function were normal. Patient is worried about renal failure but has no findings of this on laboratory analysis. A repeat ultrasound was obtained given the high wish to avoid further radiation of the patient is alert he had several CT scans in recent weeks for this indication, no pathology identified. The ultrasound again revealed no hydronephrosis, no signs intervention important kidney stone or pathology. Furthermore urinalysis revealed no blood, no clear markers of infection. There were a few bacteria, but no white cells, no leuks, no nitrates no markers to suggest an active infection were explained the patient's symptoms. The patient received a dose of Toradol, IV fluids, promethazine and Benadryl, and was drowsy and slept comfortably. Given the multitude of ED visits, I contacted and discussed the case the patient 's primary care physician. The PCP is working to try and get the patient into a pain specialist, although apparently the patient started in fired from the [place] [facility]. The PCP agrees that no controlled substances should be administered absent clear, appropriate, medical and objective indications. I have explained that to the patient. The PCP; impression there are ED psych social worker is helping facilitate the referral, and I have consult the psych social worker for their input on confirmation on this. I have asked for them to help outline the care plan indicating no control substance absence appropriate objection, to update the ANSELMO plan. I have written a prescription for refill of ondansetron and promethazine. Patient's discharge clinically well-appearing. Source of Hx: Old records Re-Evaluation/Progress : Time of Eval: 11:08 Patient Status: Condition improved Re-Evaluation/Progress Note: Discussed plan for discharge. Pt understands and agrees with plan. Consultation : Referral / Consult Name: Celina Card Consulted With: Primary care physician Call Returned at: 10:52 Note: They are trying to get her into a pain specialist. Do not give her controlled substances. They believe that our psych social worker is in the process of setting up an appointment with a pain specialist. Differential Diagnosis: Positive: Acute abdominal pain, Negative: Abdominal aortic aneurysm, Acute coronary syndrome, Bowel obstruction, C. diff colitis, Cellulitis, Cervicitis, Cholelithiasis, Constipation, Contusion abdominal wall, Ectopic preg ruptured, Ectopic , Peritonitis, Urinary retention, Urinary tract infection, Urolithiasis Counseled Regarding: Diagnosis, Lab results, Need for follow-up, When/why to return to ED Discharge & Departure Primary Impression: Left flank pain Disposition: Home Discharge Condition All VS Reviewed: Yes Condition: Improved Additional Instructions: 1. A dangerous cause of her flank pain was not identified today. Your blood tests were normal. 2. You had another ultrasound today looking for any signs of his severe kidney stone-and none was identified. 3. You have had 2 CT scans, and another ultrasound all done in the past several weeks-and none of the identified a kidney stone actually causing symptoms or problems thus far. Therefore it is not clear that your symptoms are from a kidney stone (You did have a stone identified on CT that was still in the kidney, this is not the cause of your symptoms or pain). 4. Your urine test today revealed no markers of a kidney stone, no blood. There were no findings of an infection of the urine. 5. Call Celina Card's office today for advancing your appointment early this coming week. 6. You can take ondansetron 8mg (let dissolve under tongue) up to every 4 hours , and or promethazine 25 mg every 4 hours as needed for nausea. 7. Continue ibuprofen 400-600mg four times a day. 8. You can take tylenol 1000mg (not just 500mg) three times a day for pain as well safely. 9. Your providers are trying to situate up with a pain specialist. All controlled substances of any kind should be monitored by a single provider, and will not be prescribed through the emergency department without an appropriate objective medical indication. 9. Return if new or worsening symptoms. Referrals: Celina Card (PCP) Deloris Attestation Portions of this note were transcribed by Leona Campuzano. I, Dr. Minor personally performed the history, physical exam and medical decision-making; I reviewed and confirmed the accuracy of the information in the transcribed note. Signed by: Deloris Damian, 09/04/2016 at 1045. copies to: Celina Card Matthew F MD Sep 04, 2016 06:30 LEONA CAMPUZANO Sep 04, 2016 06:39
[2016-09-04] MEDS ORDERED: 0.9% Sodium Chloride 1,000 ML IV ONE (06:45)
[2016-09-04] MEDS ORDERED: ProchlorPERazine 5 mg/mL 2 mL Inj IVPUSH ONE (06:45)
[2016-09-04 07:17] VITALS: BP 173/102; PULSE 76; RESP 14; O2SAT 98
--- NOTE | 2016-09-04 09:23 | DRSVH ---
PROCEDURE: US RENAL SONOGRAM INDICATIONS: Flank pain TECHNIQUE: Real-time scanning was performed of the kidneys and bladder, with image documentation. COMPARISON: [facility], CT, CT KUB, 08/20/2016, 7:21. FINDINGS: Kidneys: Kidneys are normal in size. Right kidney measures 11.3 cm long; left kidney measures 12.3 cm long. Right renal cortical thickness is 1.4 cm; left renal cortical thickness is 1.5 cm. Renal c ortical echotexture is normal. No hydronephrosis or nephrolithiasis. No suspicious solid mass lesio ns. Bladder: Pre-void bladder volume is 121 mL. Post-void residual cannot be assessed as the patient wa s unable to void. Pre-void images demonstrate no intraluminal masses or stones. On pre-void images, left ureteral jets are noted with color Doppler interrogation. (Of note, ureteral jets may not be d etectable in up to 25% of cases due to insufficient differences in specific gravity between ureteral and bladder urine). Miscellaneous: No free pelvic fluid. Liver is diffusely increased in echogenicity. No focal hepati c abnormalities identified. Normal hepatic size. IMPRESSION: 1. Increased hepatic echogenicity noted likely related to fatty infiltration of the liver but other s ources of hepatocellular disease cannot be excluded. Recommend clinical correlation. 2. No source for left flank pain identified. Dictated by: Alfredo DUDLEY Interpreted: Aroldo Monzon MD on 09/04/2016 at 9:21 Transcribed by: ROZINA on 09/04/2016 at 9:23 Approved by: Aroldo Monzon M.D. on 09/04/2016 at 9:49
[2016-09-04 09:41] VITALS: BP 191/100; PULSE 71; RESP 15; O2SAT 97
[2016-09-04 09:50] LABS: APPEARANCE,URINE HAZY (CLEAR,HAZY); COLOR,URINE YELLOW (YELLOW); OCCULT BLOOD,URINE NEGATIVE (NEGATIVE); PH,URINE 5.5 (5.0-8.0); UROBILINOGEN,URINE NORMAL (NORMAL)
[2016-09-04] MEDS ORDERED: PROM25TA14 PO (10:01)
[2016-09-04] MEDS ORDERED: ONDA8TAB10 PO (10:01)
[2016-09-04 11:21] VITALS: BP 132/81; PULSE 71; RESP 22; O2SAT 97
== END 2016-09-04 11:15 | disposition home or self-care (01) ==
LOC: SED 03:24
DX: R10.9 Unspecified abdominal pain (principal); R11.2 Nausea with vomiting, unspecified; R42 Dizziness and giddiness; R30.0 Dysuria; K21.9 Gastro-esophageal reflux disease without esophagitis; F11.20 Opioid dependence, uncomplicated; J45.909 Unspecified asthma, uncomplicated; M79.7 Fibromyalgia; E11.9 Type 2 diabetes mellitus without complications; I10 Essential (primary) hypertension; F17.200 Nicotine dependence, unspecified, uncomplicated; E66.9 Obesity, unspecified; Z87.442 Personal history of urinary calculi; Z90.49 Acquired absence of other specified parts of digestive tract; Z87.19 Personal history of other diseases of the digestive system; Z79.82 Long term (current) use of aspirin; Z79.84 Long term (current) use of oral hypoglycemic drugs; Z79.51 Long term (current) use of inhaled steroids; Z85.9 Personal history of malignant neoplasm, unspecified; Z88.2 Allergy status to sulfonamides; Z88.1 Allergy status to other antibiotic agents; Z88.8 Allergy status to other drugs, medicaments and biological substances
CPT/HCPCS: 36415; 76770; 80053; 81000; 81025; 83690; 83735; 85025; 87086; 87088; 96361; 96374; 96375; 99285; J0780; J1200; J1885; J7030

== ENCOUNTER 2016-09-10 06:32 | Emergency (ER) | payer OTHER ==
[~2016-09-10] VITALS: Ht 157.5 cm; Wt 161.8 kg
[~2016-09-10 06:32] MED LIST changes: +PROM25TA14 PO
[2016-09-10 06:37] VITALS: BP 154/91; PULSE 70; RESP 18; O2SAT 100
--- NOTE | 2016-09-10 06:47 | ED.REPORT ---
HPI-Abd Pain F 40 and Over Date of Service Sep 10, 2016 ED Provider: Jono Minor MD 45 y/o female with a hx of HTN, nephrolithiasis, DM, bipolar disorder and depression presents to the ED complaining of dysuria, onset 3 days ago. The pt states "it feels like something is stabbing me when I go to the bathroom." She has been having difficulty sleeping due to the pain. Associated sx include left flank pain, nausea and vomiting. She denies fever. She took a Tylenol this morning with no relief. She has been seen at the ED several times in the last few weeks for the same complaint and the lab and imaging results have been normal. Nursing Notes Stated Complaint: NAUSEA/VOMITING/KIDNEY PAIN Chief Complaint: Female Abdominal Pain Nursing Notes Reviewed: Yes (GoodClic not reconciled) Allergies: Coded Allergies: Contrast Media (Verified Allergy, Unknown, 09/10/16) Sulfa (Sulfonamide Antibiotics) (Verified Allergy, Unknown, 09/10/16) cephalexin (Verified Allergy, Unknown, 09/10/16) ciprofloxacin (Verified Allergy, Unknown, 09/10/16) dihydroergotamine mesylate (Verified Allergy, Unknown, 09/10/16) ether (Verified Allergy, Unknown, 09/10/16) iodine (Verified Allergy, Unknown, 09/10/16) prednisolone (Verified Allergy, Unknown, Causes Severe depression, 09/10/16 ) sumatriptan (Verified Allergy, Unknown, 09/10/16) Scheduled Aspirin Chew (Aspirin Chew) 81 Mg Chew 81 MG PO DAILY Clonidine (Clonidine) 0.2 Mg Tablet 0.4 MG PO BID Doxepin (Doxepin) 100 Mg Capsule 75 MG PO BID Duloxetine (Cymbalta) 30 Mg Capsule.dr 60 MG PO DAILY Hydrocortisone Valerate (Hydrocortisone Valerate) 15 Gm Cream..g. 1 GM TP BID Lamotrigine (Lamotrigine) 200 Mg Tablet 150 MG PO BID Lisinopril (Lisinopril) 20 Mg Tablet 20 MG PO DAILY Loratadine (Claritin) 10 Mg Capsule 10 MG PO DAILY Metformin (Metformin) 500 Mg Tablet 2,000 MG PO BID WITH EVENING MEAL Methocarbamol (Robaxin-750) 750 Mg Tablet 1,500 MG PO g1ojage Nitrofurantoin Monohyd/M-Cryst (MacroBid) 100 Mg Capsule 100 MG PO BID Pantoprazole DR (Protonix) 40 Mg Tablet.dr 40 MG PO DAILY Pregabalin (Lyrica) 100 Mg Capsule 1 TAB PO TID Propranolol ER (Propranolol ER) 160 Mg Cap.sa.24h 160 MG PO BID Simvastatin (Simvastatin) 20 Mg Tablet 20 MG PO HS Tamsulosin (Flomax) 0.4 Mg Capsule 0.4 MG PO DAILY Tamsulosin (Flomax) 0.4 Mg Capsule 0.4 MG PO DAILY Zonisamide (Zonisamide) 100 Mg Capsule 100 MG PO HS Scheduled PRN Albuterol HFA (Proair HFA) 8.5 Gm Hfa.aer.ad 2 PUFFS INHALATION Q4H PRN PRN For Shortness of Breath Butalbital/Acetamin/Caff 50-300-40 mg (Fioricet 50-300-40 mg) 1 Each Capsule 1 CAPSULE PO Q4H PRN PRN Headache Epinephrine (Epinephrine) 0.3 Mg/0.3 Ml Auto.injct 0.3 MG IJ PRN For Anaphyllaxis Hydroxyzine Pamoate (Vistaril) 25 Mg Capsule 25 MG PO HS PRN PRN For Insomnia Ibuprofen (Ibuprofen) 800 Mg Tablet 800 MG PO TID PRN PRN For Pain Ketorolac Tromethamine (Ketorolac Tromethamine) 60 Mg/2 Ml Syringe 60 MG IM DAILY PRN PRN For Pain Ondansetron ODT (Zofran ODT) 8 Mg Tablet 8 MG PO Q4H PRN PRN For Nausea Ondansetron ODT (Ondansetron ODT) 8 Mg Tab.rapdis 8 MG PO TID PRN PRN For Nausea Ondansetron ODT (Ondansetron ODT) 8 Mg Tab.rapdis 8 MG PO Q4H PRN PRN For Nausea Ondansetron ODT (Ondansetron ODT) 8 Mg Tab.rapdis 8 MG PO Q4H PRN PRN For Nausea Pramipexole Dihydrochloride (Pramipexole Dihydrochloride) 1 Mg Tablet 0.75 MG PO DAILY PRN PRN Restless leg Promethazine (Promethazine) 25 Mg Tablet 25 MG PO Q6H PRN PRN For Nausea General Time Seen by MD: 06:41 Chief Complaint Dysuria Hx Obtained From: Patient Arrived By: Walk-in Sudden in Onset?: No Onset Occurred: 2 days ago Symptom Duration: Since onset Progression since Onset: Unchanged Location: : Flank left Quality: Painful Radiation: : Does not radiate Severity: Current: Moderate Severity: Maximum: Moderate Recent Healthcare: Recent doctor visit Similar Sx Previous: Yes Past Medical History Past Medical History Notes: (~25 ED Visits to [facility] this year, Pateint seen 08/20 and 08/22, 08/26, and 09/04 for Flank pain - Neg CTx2 and U/ Sx2 for clear cause of pain, 1mm non-obstructing nephrolithiasis Frequent ER visits Dr. Meyers, Neurology [facility], Psychiatric prescriber Past Medical History GERD Chronic depression Chronic migraines opioid Dependency and withdrawal headaches asthma Fibromyalgia Neuropathy 85% deaf Blind in right eye Morbid Obesity Spinal stenosis Anxiety Bipolar disorder Reports: Asthma, Cancer, Diabetes mellitus, Gastritis, Hypertension, Peptic ulcer disease Reports: Obesity Past Surgical History Cholecystectomy Appendectomy Hysterectomy Laparoscopy Tonsillectomy Cholecystectomy Sinus Multiple eye surgeries Colonoscopy Family History Reviewed, not relevant Smoking History Current Every Day Smoker Social History She reports recent graduation with Masters Counseling degree and successfully quit smoking. She has 4 grandchildren. Lives with son and his and their daughter Alcohol Use: Denies alcohol use Drug Use: Denies drug use Other Social History: Frequent ED visitor, , Local resident Occupation Student Ambulatory Status Cane Review of Systems Constitutional: Denies: Fever GI: Reports: Nausea, Vomiting Female: Reports: Dysuria, Flank pain (left) Complete sys rev & neg: except as marked. Physical Exam Vital Signs Vital Signs (First) Date Time Temp Pulse Resp B/P Pulse Ox O2 Delivery O2 Flow Rate FiO2 09/10/16 06:37 36.7 70 18 154/91 100 Room Air Initial VS: Reviewed, Vital signs normal Head / Eyes: Atraumatic, Normocephalic Neck: Supple, Non-tender, Full range of motion Extremities: Vascular intact, Neuro intact, No swelling, No tenderness Skin: Warm, Dry, No cyanosis Neurologic: Alert, Oriented, Nonfocal General/Constitutional: Awake, Alert, Cooperative No visible distress compared to someone with a kidney stone. Flat affect. Respiratory / Chest: Atraumatic, Breath sounds NL, Breath sounds = bilat, No respiratory distress, No rales, No rhonchi, No wheezing Cardiovascular: Heart rate NL, Regular rhythm, Heart sounds NL, No gallop, No murmurs, No rubs Abdomen: Atraumatic, Soft, Non-tender Interpretation & Diagnostics Interpretation & Diagnostics: Multiple recent urine's negative, urine culture from last week normal floor Lab Results Interpretation Test 09/10/16 10:20 Urine Color Straw (YELLOW) Urine Appearance Hazy (CLEAR,HAZY) Urine pH 5.5 (5.0-8.0) Urine Specific [place] 1.030 (1.003-1.035) Urine Protein 30mg/dL (NEG,TRACE) Urine Glucose (UA) Negativemg/dL (NEGATIVE) Urine Ketones Negativemg/dL (NEGATIVE) Urine Occult Blood Trace (NEGATIVE) Urine Nitrite Positive (NEGATIVE) Urine Bilirubin Negative (NEGATIVE) Urine Urobilinogen Normalmg/dL (NORMAL) Urine Leukocyte Esterase Small (NEGATIVE) Urine RBC 0-2/hpf (0-2) Urine WBC >50/hpf (0-5) Urine Epithelial Cells Moderate/hpf (NONE-MOD) Urine Crystals None seen (NONE SEEN) Urine Bacteria Many/hpf (NONE-FEW) Urine Hyaline Casts None/lpf (NONE) Urine Granular Casts None seen (NONE SEEN) Urine Waxy Casts None seen (NONE SEEN) Urine Red Blood Cell Casts None seen (NONE SEEN) Urine White Blood Cell Casts None seen (NONE SEEN) Urine Mucus None seen (None Seen) Urine Trichomonas None seen (NONE SEEN) Urine Yeast None (NONE SEEN) Urinalysis Comment None Urine Culture Reflexed Indicated Lab Results Interpretation: UA abnormal, repeat culture pending CT Abd / Pelvis Interpretation IMPRESSION: 1. 1 mm nonobstructing left renal stone stable compared to 08/20/16. 2. No hydronephrosis. 3. Hepatic steatosis. 4. Subcutaneous air in the lateral upper left buttock soft tissues possibly related to medication injection, however cellulitis can be differentiated by imaging alone. Please correlate with clinical data. Dictated by: Suzan Suarez MD, PhD on 09/10/2016 at 9:33 Approved by: Suzan Suarez MD, PhD on 09/10/2016 at 9:39 Study type: Abdominal CT no contrast Interpretation / Wet Read by: Interpret - Radiologist Re-Eval/Medical Decision Med Decision/Clinical Course This is a 45-year-old female returns emergency department again complaining of left flank pain. The patient's had numerous ED visits in the past 6 months, and over the past several months has had multiple emergency department, urgent care, and PCP visits for left flank pain which she insists is from a kidney stone and/or kidney infection, both for which the workup is not substantiated this claim. She has had a marked interested in pain medicine, and the discussion I had the PCP and her last visit for identical presentation indicates that controlled substances in this setting to be limited to the presence of objective, medical conditions. The patient reports that she discontinue have terrible left flank pain and again is concerned about a kidney stone. Appear in any colicky discomfort and appears sedate and comfortable clinically. Her abdomen is soft nontender, and her description of pain is discordant with the objective appearance. She has had multiple recent workups. She remains insistent that she is having terrible uncontrolled pain, and given this, repeat visits-I have relented and gone ahead and obtain a CT KUB she did have a 1 mm stone in the kidney, not clearly causing any troubles on previous imaging. The CT KUB is unchanged, a 1 mm stone in the kidney that should not be causing any of her current symptoms is unchanged, and no explanation for ongoing left flank pain was identified. Her urinalysis today does have leuks, white cells, trace blood and markers of a possible infection, but also still has epithelial cells. As indicated patient' s had multiple urine samples, and including a culture that was normal floor just last week. Given her symptoms been ongoing for at least 6 weeks or more, and all subsequent urine test in recent weeks of all been negative, that today' s urine is likely had a truly causative or explanatory finding. He makes it probable given the epithelial cells as is another contaminated sample. However given it is more severe than identified previously, the patient's been started on Macrobid antibiotics given her allergy profile. I recommended continued Tylenol and ibuprofen. Patient reports she still has plenty of nausea medicine. I again declined any controlled substances as I do not find any objective indication of a medical condition that would require them or benefit from them to be present. Patient means a bit frustrated with this. She is to follow-up with her PCP, who was working get her into a pain clinic. In the patient's discharge clinically stable, clinically well-appearing condition Source of Hx: Old records Re-Evaluation/Progress : Time of Eval: 11:19 Patient Status: Mild relief Re-Evaluation/Progress Note: Rechecked pt. Discussed lab results, imaging results, diagnosis and plan to discharge. Pt understands and agrees with the plan. F/U instructions and RTER warning given. All questions addressed. Differential Diagnosis: Positive: Bowel obstruction, Negative: Ectopic preg ruptured, Ectopic , Peritonitis, Porphyria, Pyelonephritis, Stab wound abdomen, Trauma, abdominal, Urinary retention, Urolithiasis, Volvulus Counseled Regarding: Diagnosis, Lab results, Need for follow-up, When/why to return to ED Discharge & Departure Primary Impression: Urinary tract infection Urinary tract infection type: acute cystitis Hematuria presence: without hematuria Qualified Code: N30.00 - Acute cystitis without hematuria Additional Impression: Left flank pain Disposition: Home Discharge Condition All VS Reviewed: Yes Condition: Stable Additional Instructions: 1. A dangerous cause of your Left Flank/Abdominal pain was not identified. 2. You had another CT scan (3rd in past 6 weeks) that does not reveal any signs of a kidney stone causing your symptom. (You have a small stone in the left kidney, where it is not causing any symptoms/problems, and it has not moved from your prior CT scans). This means there are no findings that your symptoms are from a kidney stone. 3. Your urine tests today do have some markers of a possible infection, although you have had multiple prior samples in recents weeks including cultures which have not demonstrated an infection. This is most likely a contaminant, but we have sent another culture. Call [phone] for results. In the meantime, we will still treat the possibility of an infection by taking macrobid 100mg twice a day for 10 days. 4. Continue your current tylenol. 5. As discussed, we can not provide controlled substances/pain medications without a clear, objective, medical indication and no such indications are present today. 6. Keep your appointment with Celina Card. Referrals: Celina Card (PCP) Scribe Attestation Portions of this note were transcribed by Harish Doe. I, , personally performed the history, physical exam and medical decision-making;I reviewed and confirmed the accuracy of the information in the transcribed note. Signed by Deloris Cruz. 09/10/16 11:19 copies to: Celina Card Matthew F MD Sep 10, 2016 06:47 Harish Doe Sep 10, 2016 07:34
[2016-09-10] MEDS ORDERED: Promethazine 25 mg/mL Inj IM ONE (07:35)
--- NOTE | 2016-09-10 09:40 | DRSVH ---
PROCEDURE: CT KUB ([id number]) INDICATIONS: L Flank pain TECHNIQUE: Noncontrast 5 mm thick sections acquired from the diaphragms to the symphysis. 5 mm thick coronal an d sagittal reformats were then performed. For radiation dose reduction, the following was used: aut omated exposure control, adjustment of mA and/or kV according to patient size. COMPARISON: [facility], CT, KUB - CT (PNL), 06/05/2011, 15:31. CT, KUB - CT (PNL), 02/03, 21:07. [facility], CT, KUB - CT (PNL), 02/02/2009, 20:30. [facility] , CT, CT KUB, 08/20/2016, 7:21. [facility], CT, CT ABD PELVIS WO CON, 08/08/2016, 16:14. [facility], CT, CT KUB, 07/23/2015, 12:31. [facility], CT, KUB - CT (PNL), , 20:07. FINDINGS: Image quality: Excellent. Lung bases: Lung bases are clear. Heart size is normal. Urinary system: Both kidneys are normal in size. 1 mm nonobstructing stone in the interpolar left ki dney is stable compared to prior CT scan obtained 08/20/16.. No hydronephrosis or perinephric fat str anding. Both ureters appear non-dilated throughout their expected courses. Bladder wall thickness i s normal; no calcified bladder stones. Other solid organs: Liver and spleen are normal in size. Diffuse fatty infiltration of the liver is noted. Gallbladder is surgically absent. Pancreas is normal in contours. No adrenal nodules. Peritoneum and bowel: Unenhanced bowel loops demonstrate normal wall thickness and caliber. No free fluid or air. Nodes and vessels: No retroperitoneal or mesenteric adenopathy by size criteria. Aorta and inferior vena cava are normal in caliber. Abdominal wall: No ventral hernias. Postsurgical changes compatible with ventral hernia repair are s table. Subcutaneous air noted in the left flank may be related to medication injection, however cellu litis cannot be differentiated by imaging alone. Pelvis: No free pelvic fluid. No inguinal hernias or adenopathy. Bones: No suspicious bony lesions. No vertebral body compression fractures. IMPRESSION: 1. 1 mm nonobstructing left renal stone stable compared to 08/20/16. 2. No hydronephrosis. 3. Hepatic steatosis. 4. Subcutaneous air in the lateral upper left buttock soft tissues possibly related to medication inj ection, however cellulitis can be differentiated by imaging alone. Please correlate with clinical alania a. Dictated by: Suzan Suarez MD, PhD on 09/10/2016 at 9:33 Approved by: Suzan Suarez MD, PhD on 09/10/2016 at 9:39
[2016-09-10 10:19] VITALS: BP 179/101; PULSE 72; RESP 12; O2SAT 97
[2016-09-10 10:44] LABS: COLOR,URINE STRAW (YELLOW)
[2016-09-10 10:45] LABS: APPEARANCE,URINE HAZY (CLEAR,HAZY); OCCULT BLOOD,URINE TRACE (NEGATIVE); PH,URINE 5.5 (5.0-8.0); UROBILINOGEN,URINE NORMAL (NORMAL)
[2016-09-10] MEDS ORDERED: Nitrofurantoin Monohyd-Macrocryst 100 mg Capsule PO ONE (10:55)
[2016-09-10] MEDS ORDERED: NITR100 PO (10:59)
== END 2016-09-10 11:30 | disposition home or self-care (01) ==
LOC: SED 06:32
DX: N30.00 Acute cystitis without hematuria (principal); R10.9 Unspecified abdominal pain; B96.20 Unspecified Escherichia coli [E. coli] as the cause of diseases classified elsewhere; I10 Essential (primary) hypertension; E11.40 Type 2 diabetes mellitus with diabetic neuropathy, unspecified; K21.9 Gastro-esophageal reflux disease without esophagitis; F17.200 Nicotine dependence, unspecified, uncomplicated; Z79.82 Long term (current) use of aspirin; Z79.84 Long term (current) use of oral hypoglycemic drugs; Z79.899 Other long term (current) drug therapy; Z88.2 Allergy status to sulfonamides; Z88.1 Allergy status to other antibiotic agents; Z88.8 Allergy status to other drugs, medicaments and biological substances; Z91.041 Radiographic dye allergy status
CPT/HCPCS: 74176; 81000; 87086; 87088; 87186; 96372; 99284; J1885; J2550

== ENCOUNTER 2016-09-27 19:48 | Emergency (ER) | payer OTHER ==
[~2016-09-27] VITALS: Ht 157.5 cm; Wt 116.4 kg
[~2016-09-27 19:48] MED LIST changes: +NITR100 PO
[2016-09-27 20:04] VITALS: BP 175/97; PULSE 80; RESP 18; O2SAT 98
[2016-09-27] MEDS ORDERED: 0.9% Sodium Chloride 1,000 ML IV ONE (21:52)
[2016-09-27] MEDS ORDERED: Ondansetron 2 mg/mL 2 mL Inj IVPUSH ONE (21:55)
--- NOTE | 2016-09-27 22:21 | ED.REPORT ---
HPI-Headache Date of Service Sep 27, 2016 ED Provider: Praneeth Last MD 45 y/o female with a hx of HTN, nephrolithiasis, DM, bipolar disorder and depression presents to the ED complaining of a headache, onset 2 days ago. Associated sx include nausea and vomiting. She states "I haven't been holding anything down". She took her Ondansetron but it did not improve her sx. Nursing Notes Stated Complaint: MIGRAINE, NAUSEA, VOMITING Chief Complaint: Headache Nursing Notes Reviewed: Yes Allergies: Coded Allergies: Contrast Media (Verified Allergy, Unknown, 09/27/16) Sulfa (Sulfonamide Antibiotics) (Verified Allergy, Unknown, 09/27/16) cephalexin (Verified Allergy, Unknown, 09/27/16) ciprofloxacin (Verified Allergy, Unknown, 09/27/16) dihydroergotamine mesylate (Verified Allergy, Unknown, 09/27/16) ether (Verified Allergy, Unknown, 09/27/16) iodine (Verified Allergy, Unknown, 09/27/16) prednisolone (Verified Allergy, Unknown, Causes Severe depression, 09/27/16) sumatriptan (Verified Allergy, Unknown, 09/27/16) Scheduled Aspirin Chew (Aspirin Chew) 81 Mg Chew 81 MG PO DAILY Clonidine (Clonidine) 0.2 Mg Tablet 0.4 MG PO BID Doxepin (Doxepin) 100 Mg Capsule 75 MG PO BID Duloxetine (Cymbalta) 30 Mg Capsule.dr 60 MG PO DAILY Hydrocortisone Valerate (Hydrocortisone Valerate) 15 Gm Cream..g. 1 GM TP BID Lamotrigine (Lamotrigine) 200 Mg Tablet 150 MG PO BID Lisinopril (Lisinopril) 20 Mg Tablet 20 MG PO DAILY Loratadine (Claritin) 10 Mg Capsule 10 MG PO DAILY Metformin (Metformin) 500 Mg Tablet 2,000 MG PO BID WITH EVENING MEAL Methocarbamol (Robaxin-750) 750 Mg Tablet 1,500 MG PO l1zbxxr Nitrofurantoin Monohyd/M-Cryst (MacroBid) 100 Mg Capsule 100 MG PO BID Pantoprazole DR (Protonix) 40 Mg Tablet.dr 40 MG PO DAILY Pregabalin (Lyrica) 100 Mg Capsule 1 TAB PO TID Propranolol ER (Propranolol ER) 160 Mg Cap.sa.24h 160 MG PO BID Simvastatin (Simvastatin) 20 Mg Tablet 20 MG PO HS Tamsulosin (Flomax) 0.4 Mg Capsule 0.4 MG PO DAILY Tamsulosin (Flomax) 0.4 Mg Capsule 0.4 MG PO DAILY Zonisamide (Zonisamide) 100 Mg Capsule 100 MG PO HS Scheduled PRN Albuterol HFA (Proair HFA) 8.5 Gm Hfa.aer.ad 2 PUFFS INHALATION Q4H PRN PRN For Shortness of Breath Butalbital/Acetamin/Caff 50-300-40 mg (Fioricet 50-300-40 mg) 1 Each Capsule 1 CAPSULE PO Q4H PRN PRN Headache Epinephrine (Epinephrine) 0.3 Mg/0.3 Ml Auto.injct 0.3 MG IJ PRN For Anaphyllaxis Hydroxyzine Pamoate (Vistaril) 25 Mg Capsule 25 MG PO HS PRN PRN For Insomnia Ibuprofen (Ibuprofen) 800 Mg Tablet 800 MG PO TID PRN PRN For Pain Ketorolac Tromethamine (Ketorolac Tromethamine) 60 Mg/2 Ml Syringe 60 MG IM DAILY PRN PRN For Pain Ondansetron ODT (Zofran ODT) 8 Mg Tablet 8 MG PO Q4H PRN PRN For Nausea Ondansetron ODT (Ondansetron ODT) 8 Mg Tab.rapdis 8 MG PO TID PRN PRN For Nausea Ondansetron ODT (Ondansetron ODT) 8 Mg Tab.rapdis 8 MG PO Q4H PRN PRN For Nausea Ondansetron ODT (Ondansetron ODT) 8 Mg Tab.rapdis 8 MG PO Q4H PRN PRN For Nausea Pramipexole Dihydrochloride (Pramipexole Dihydrochloride) 1 Mg Tablet 0.75 MG PO DAILY PRN PRN Restless leg Promethazine (Promethazine) 25 Mg Tablet 25 MG PO Q6H PRN PRN For Nausea General Time Seen by MD: 21:44 Chief Complaint Migraine headache Hx Obtained From: Patient Arrived By: Walk-in Sudden in Onset?: Yes Onset Occurred: 2 days ago Symptom Duration: Since onset Location: : Generalized Quality: Same as prior Severity: Current: Moderate Severity: Maximum: Moderate Recent Healthcare: Recent doctor visit Similar Sx Previous: Yes Past Medical History Past Medical History Notes: (~25 ED Visits to [facility] this year, Pateint seen 08/20 and 08/22, 08/26, and 09/04 for Flank pain - Neg CTx2 and U/ Sx2 for clear cause of pain, 1mm non-obstructing nephrolithiasis Frequent ER visits Dr. Meyers, Neurology [facility], Psychiatric prescriber Past Medical History GERD Chronic depression Chronic migraines opioid Dependency and withdrawal headaches asthma Fibromyalgia Neuropathy 85% deaf Blind in right eye Morbid Obesity Spinal stenosis Anxiety Bipolar disorder Reports: Asthma, Cancer, Diabetes mellitus, Gastritis, Hypertension, Peptic ulcer disease Reports: Obesity Past Surgical History Cholecystectomy Appendectomy Hysterectomy Laparoscopy Tonsillectomy Cholecystectomy Sinus Multiple eye surgeries Colonoscopy Family History Reviewed, not relevant Smoking History Current Every Day Smoker Social History She reports recent graduation with Masters Counseling degree and successfully quit smoking. She has 4 grandchildren. Lives with son and his and their daughter Alcohol Use: Denies alcohol use Drug Use: Denies drug use Other Social History: Frequent ED visitor, , Local resident Occupation Student Ambulatory Status Cane Review of Systems GI: Reports: Nausea, Vomiting Neurologic: Reports: Headache Complete sys rev & neg: except as marked. Physical Exam Initial Vital Signs Vital Signs (First) Date Time Temp Pulse Resp B/P Pulse Ox O2 Delivery O2 Flow Rate FiO2 09/27/16 20:04 37.2 80 18 175/97 98 Room Air Initial VS: Reviewed, Vital signs abnormal Respiratory: Breath sounds normal, Clear to auscultation, No respiratory distress Cardiovascular: Regular rate & rhythm, Heart sounds normal, Intact distal pulses Abdomen / GI: Soft, Non-tender Extremities: Vascular intact, Neuro intact, No swelling, No tenderness Skin: Warm, Dry, No cyanosis General/Constitutional: Awake, Alert, Cooperative Distress / Hydration: Positive: Dehydration mild Head / Eyes: Atraumatic, Normocephalic, PERRL Pupils: Positive: Photophobia L, Photophobia R Neck: Atraumatic, Supple, Full range of motion Neurologic: Oriented X3, Speech NL, No motor deficits, No sensory deficits Re-Eval/Medical Decision Med Decision/Clinical Course Typical presentation of migraine headache. She has had vomiting and feels dehydrated. She was given an IV with saline, Toradol, diphenhydramine and Zofran with good relief of her pain. Source of Hx: Old records Counseled Regarding: Diagnosis, Need for follow-up, When/why to return to ED Discharge & Departure Impression: Primary Impression: Migraine Migraine type: without aura Status migrainosus presence: without status migrainosus Intractability: not intractable Qualified Code: G43.009 - Migraine without aura, not intractable, without status migrainosus Disposition: Home Discharge Condition All VS Reviewed: Yes Condition: Stable Additional Instructions: You received IV normal saline, IV Benadryl, IV ketorolac, and IV ondansetron with good relief of your headache. Follow-up with your regular doctor. Return here as needed for recurrent or worsening symptoms. Referrals: Celina Card (PCP) Scribe Attestation Portions of this note were transcribed by Harish Doe. I, , personally performed the history, physical exam and medical decision- making;I reviewed and confirmed the accuracy of the information in the transcribed note. Signed by Deloris Cruz. 09/28/16 00:38 copies to: Celina Card Howard L MD Sep 27, 2016 22:21 Harish Doe Sep 27, 2016 22:52
[2016-09-28 00:57] VITALS: BP 160/92; PULSE 78; RESP 16; O2SAT 98
== END 2016-09-28 00:58 | disposition home or self-care (01) ==
LOC: SED 19:48
DX: G43.009 Migraine without aura, not intractable, without status migrainosus (principal); I10 Essential (primary) hypertension; E11.40 Type 2 diabetes mellitus with diabetic neuropathy, unspecified; M79.7 Fibromyalgia; J45.909 Unspecified asthma, uncomplicated; K21.9 Gastro-esophageal reflux disease without esophagitis; F41.9 Anxiety disorder, unspecified; F31.9 Bipolar disorder, unspecified; H91.90 Unspecified hearing loss, unspecified ear; H54.41 Blindness, right eye, normal vision left eye; F17.200 Nicotine dependence, unspecified, uncomplicated; Z87.11 Personal history of peptic ulcer disease; Z79.84 Long term (current) use of oral hypoglycemic drugs; Z79.82 Long term (current) use of aspirin; Z88.1 Allergy status to other antibiotic agents; Z88.2 Allergy status to sulfonamides; Z88.8 Allergy status to other drugs, medicaments and biological substances; Z91.041 Radiographic dye allergy status
CPT/HCPCS: 96361; 96374; 96375; 99284; J1200; J1885; J2405; J7030

== ENCOUNTER 2016-11-11 04:02 | Emergency (ER) | payer OTHER ==
[~2016-11-11] VITALS: Ht 157.5 cm; Wt 116.4 kg
--- NOTE | 2016-11-11 04:09 | ED.REPORT ---
HPI-Headache Date of Service Nov 11, 2016 ED Provider: Dr. Last The pt is a 45 y/o female with a hx of HTN, nephrolithiasis, DM, bipolar disorder and depression presents to the ED complaining of a headache, onset yesterday. Associated sx include nausea and vomiting. Her current headache is the same as her previous migraine headaches. There are no other complaints at this time. Nursing Notes Stated Complaint: SEVERE HEADACHE, NAUSEA,VOMITING Nursing Notes Reviewed: Yes Allergies: Coded Allergies: Contrast Media (Verified Allergy, Unknown, 09/27/16) Sulfa (Sulfonamide Antibiotics) (Verified Allergy, Unknown, 09/27/16) cephalexin (Verified Allergy, Unknown, 09/27/16) ciprofloxacin (Verified Allergy, Unknown, 09/27/16) dihydroergotamine mesylate (Verified Allergy, Unknown, 09/27/16) ether (Verified Allergy, Unknown, 09/27/16) iodine (Verified Allergy, Unknown, 09/27/16) prednisolone (Verified Allergy, Unknown, Causes Severe depression, 09/27/16) sumatriptan (Verified Allergy, Unknown, 09/27/16) Scheduled Aspirin Chew (Aspirin Chew) 81 Mg Chew 81 MG PO DAILY Clonidine (Clonidine) 0.2 Mg Tablet 0.4 MG PO BID Doxepin (Doxepin) 100 Mg Capsule 75 MG PO BID Duloxetine (Cymbalta) 30 Mg Capsule.dr 60 MG PO DAILY Hydrocortisone Valerate (Hydrocortisone Valerate) 15 Gm Cream..g. 1 GM TP BID Lamotrigine (Lamotrigine) 200 Mg Tablet 150 MG PO BID Lisinopril (Lisinopril) 20 Mg Tablet 20 MG PO DAILY Loratadine (Claritin) 10 Mg Capsule 10 MG PO DAILY Metformin (Metformin) 500 Mg Tablet 2,000 MG PO BID WITH EVENING MEAL Methocarbamol (Robaxin-750) 750 Mg Tablet 1,500 MG PO [id number] Nitrofurantoin Monohyd/M-Cryst (MacroBid) 100 Mg Capsule 100 MG PO BID Pantoprazole DR (Protonix) 40 Mg Tablet.dr 40 MG PO DAILY Pregabalin (Lyrica) 100 Mg Capsule 1 TAB PO TID Propranolol ER (Propranolol ER) 160 Mg Cap.sa.24h 160 MG PO BID Simvastatin (Simvastatin) 20 Mg Tablet 20 MG PO HS Tamsulosin (Flomax) 0.4 Mg Capsule 0.4 MG PO DAILY Tamsulosin (Flomax) 0.4 Mg Capsule 0.4 MG PO DAILY Zonisamide (Zonisamide) 100 Mg Capsule 100 MG PO HS Scheduled PRN Albuterol HFA (Proair HFA) 8.5 Gm Hfa.aer.ad 2 PUFFS INHALATION Q4H PRN PRN For Shortness of Breath Butalbital/Acetamin/Caff 50-300-40 mg (Fioricet 50-300-40 mg) 1 Each Capsule 1 CAPSULE PO Q4H PRN PRN Headache Epinephrine (Epinephrine) 0.3 Mg/0.3 Ml Auto.injct 0.3 MG IJ PRN For Anaphyllaxis Hydroxyzine Pamoate (Vistaril) 25 Mg Capsule 25 MG PO HS PRN PRN For Insomnia Ibuprofen (Ibuprofen) 800 Mg Tablet 800 MG PO TID PRN PRN For Pain Ketorolac Tromethamine (Ketorolac Tromethamine) 60 Mg/2 Ml Syringe 60 MG IM DAILY PRN PRN For Pain Ondansetron ODT (Zofran ODT) 8 Mg Tablet 8 MG PO Q4H PRN PRN For Nausea Ondansetron ODT (Ondansetron ODT) 8 Mg Tab.rapdis 8 MG PO TID PRN PRN For Nausea Ondansetron ODT (Ondansetron ODT) 8 Mg Tab.rapdis 8 MG PO Q4H PRN PRN For Nausea Ondansetron ODT (Ondansetron ODT) 8 Mg Tab.rapdis 8 MG PO Q4H PRN PRN For Nausea Pramipexole Dihydrochloride (Pramipexole Dihydrochloride) 1 Mg Tablet 0.75 MG PO DAILY PRN PRN Restless leg Promethazine (Promethazine) 25 Mg Tablet 25 MG PO Q6H PRN PRN For Nausea General Time Seen by MD: 04:08 Chief Complaint Migraine headache Hx Obtained From: Patient Arrived By: Walk-in Sudden in Onset?: Yes Onset Occurred: Yesterday Symptom Duration: Since onset Location: : Generalized Quality: Painful Severity: Current: Moderate Severity: Maximum: Moderate Recent Healthcare: Recent doctor visit Similar Sx Previous: Yes Past Medical History Past Medical History Notes: (~25 ED Visits to [facility] this year, Pateint seen 08/20 and 08/22, 08/26, and 09/04 for Flank pain - Neg CTx2 and U/ Sx2 for clear cause of pain, 1mm non-obstructing nephrolithiasis Frequent ER visits Dr. Meyers, Neurology [facility], Psychiatric prescriber Past Medical History GERD Chronic depression Chronic migraines opioid Dependency and withdrawal headaches asthma Fibromyalgia Neuropathy 85% deaf Blind in right eye Morbid Obesity Spinal stenosis Anxiety Bipolar disorder Reports: Asthma, Cancer, Diabetes mellitus, Gastritis, Hypertension, Peptic ulcer disease Reports: Obesity Past Surgical History Cholecystectomy Appendectomy Hysterectomy Laparoscopy Tonsillectomy Cholecystectomy Sinus Multiple eye surgeries Colonoscopy Family History Reviewed, not relevant Smoking History Current Every Day Smoker Social History She reports recent graduation with Masters Counseling degree and successfully quit smoking. She has 4 grandchildren. Lives with son and his and their daughter Alcohol Use: Denies alcohol use Drug Use: Denies drug use Other Social History: Frequent ED visitor, , Local resident Occupation Student Ambulatory Status Cane Review of Systems GI: Reports: Nausea, Vomiting Neurologic: Reports: Headache Complete sys rev & neg: except as marked. Physical Exam Initial Vital Signs Vital Signs (First) Date Time Temp Pulse Resp B/P Pulse Ox O2 Delivery O2 Flow Rate FiO2 11/11/16 04:10 36.4 79 14 143/76 100 Room Air Initial VS: Reviewed, Vital signs normal Respiratory: Breath sounds normal, Clear to auscultation, No respiratory distress Abdomen / GI: Soft, Non-tender Extremities: Vascular intact, Neuro intact, No swelling, No tenderness Skin: Warm, Dry, No cyanosis General/Constitutional: Awake, Alert, Cooperative Distress / Hydration: Positive: Distress mild Desheveled Fatigued Appears sedated Head / Eyes: Atraumatic, Normocephalic, PERRL Neck: Atraumatic, Supple, Full range of motion Neurologic: Oriented X3, Speech NL, No motor deficits, No sensory deficits Cardiovascular: Regular rhythm, Heart sounds NL, No gallop, No murmurs, No rubs Heart Rate / Rhythm: Positive: Tachycardia Re-Eval/Medical Decision Med Decision/Clinical Course 46-year-old female with headache and some nausea, treated with Zofran and Toradol with good effect. She states that she is under a lot of stress at home and this is likely the cause of her symptoms. Source of Hx: Old records Re-Evaluation/Progress : Time of Eval: 05:32 Re-Evaluation/Progress Note: Rechecked pt. Discussed diagnosis and plan to discharge. Pt understands and agrees with the plan. F/U instruction and RTER warning given. All questions addressed. Counseled Regarding: Diagnosis, Need for follow-up, When/why to return to ED Discharge & Departure Impression: Primary Impression: Migraine Migraine type: unspecified Status migrainosus presence: without status migrainosus Intractability: not intractable Qualified Code: G43.909 - Migraine, unspecified, not intractable, without status migrainosus Additional Impression: Nausea Disposition: Home Discharge Condition All VS Reviewed: Yes Condition: Stable Patient Instructions: Acute Headache (ED), Acute Nausea and Vomiting (ED) Additional Instructions: Drink plenty of fluids. Follow-up with your regular doctor as needed for persistent symptoms. Referrals: Celina Card (PCP) Scribe Attestation Portions of this note were transcribed by Harish Doe. I,, personally performed the history,physical exam and medical decision-making;I reviewed and confirmed the accuracy of the information in the transcribed note. Signed by Deloris Cruz. 11/11/16 copies to: Celina Card Howard L MD Nov 11, 2016 04:09 Harish Doe Nov 11, 2016 04:20
[2016-11-11 04:10] VITALS: BP 143/76; PULSE 79; RESP 14; O2SAT 100
[2016-11-11] MEDS ORDERED: Ondansetron 8 mg ODT Tablet PO ONE (05:00)
[2016-11-11 05:55] VITALS: BP 124/50; PULSE 74; RESP 16; O2SAT 100
== END 2016-11-11 05:56 | disposition home or self-care (01) ==
LOC: SED 04:02
DX: G43.909 Migraine, unspecified, not intractable, without status migrainosus (principal); R11.2 Nausea with vomiting, unspecified; I10 Essential (primary) hypertension; E11.40 Type 2 diabetes mellitus with diabetic neuropathy, unspecified; F32.9 Major depressive disorder, single episode, unspecified; K21.9 Gastro-esophageal reflux disease without esophagitis; J45.909 Unspecified asthma, uncomplicated; F41.9 Anxiety disorder, unspecified; F17.200 Nicotine dependence, unspecified, uncomplicated; Z91.041 Radiographic dye allergy status; Z88.1 Allergy status to other antibiotic agents; Z88.8 Allergy status to other drugs, medicaments and biological substances; Z79.82 Long term (current) use of aspirin; Z79.84 Long term (current) use of oral hypoglycemic drugs
CPT/HCPCS: 96372; 99283; J1885

== ENCOUNTER 2016-11-15 09:09 | Emergency (ER) | payer OTHER ==
[~2016-11-15] VITALS: Ht 157.5 cm; Wt 116.4 kg
[2016-11-15 09:19] VITALS: BP 179/100; PULSE 77; RESP 16; O2SAT 98
[2016-11-15] MEDS ORDERED: Dexamethasone 20 mg/2 mL Oral Solution PO ONE (09:50)
[2016-11-15] MEDS ORDERED: Promethazine 25 mg/mL Inj IM ONE (09:50)
[2016-11-15] MEDS ORDERED: LORazepam 1 mg Tablet PO ONE (09:50)
[2016-11-15] MEDS ORDERED: Ondansetron 8 mg ODT Tablet PO ONE (09:50)
--- NOTE | 2016-11-15 10:56 | ED.REPORT ---
HPI-Headache Date of Service Nov 15, 2016 ED Provider: Jono Minor MD The pt is a 46 y/o female w/ a hx of migraines depression, and bipolar disorder presenting to the ED complaining of a migraine onset three days ago. She is also experiencing nausea and vomiting. She describes the migraines as being similar to her usual and being due to the stress of a family members undergoing chemotherapy and unrelated to any recent trauma. Denies fevers. The pt has been seen in the ED roughly 20 times in the last 5 months. Nursing Notes Stated Complaint: NAUSEA/MIGRAINE Chief Complaint: Migraine Nursing Notes Reviewed: Yes ([employer], [employer] not reconciled) Allergies: Coded Allergies: Contrast Media (Verified Allergy, Unknown, 09/27/16) Sulfa (Sulfonamide Antibiotics) (Verified Allergy, Unknown, 09/27/16) cephalexin (Verified Allergy, Unknown, 09/27/16) ciprofloxacin (Verified Allergy, Unknown, 09/27/16) dihydroergotamine mesylate (Verified Allergy, Unknown, 09/27/16) ether (Verified Allergy, Unknown, 09/27/16) iodine (Verified Allergy, Unknown, 09/27/16) prednisolone (Verified Allergy, Unknown, Causes Severe depression, 09/27/16) sumatriptan (Verified Allergy, Unknown, 09/27/16) Scheduled Aspirin Chew (Aspirin Chew) 81 Mg Chew 81 MG PO DAILY Clonidine (Clonidine) 0.2 Mg Tablet 0.4 MG PO BID Doxepin (Doxepin) 100 Mg Capsule 75 MG PO BID Duloxetine (Cymbalta) 30 Mg Capsule.dr 60 MG PO DAILY Hydrocortisone Valerate (Hydrocortisone Valerate) 15 Gm Cream..g. 1 GM TP BID Lamotrigine (Lamotrigine) 200 Mg Tablet 150 MG PO BID Lisinopril (Lisinopril) 20 Mg Tablet 20 MG PO DAILY Loratadine (Claritin) 10 Mg Capsule 10 MG PO DAILY Metformin (Metformin) 500 Mg Tablet 2,000 MG PO BID WITH EVENING MEAL Methocarbamol (Robaxin-750) 750 Mg Tablet 1,500 MG PO [id number] Nitrofurantoin Monohyd/M-Cryst (MacroBid) 100 Mg Capsule 100 MG PO BID Pantoprazole DR (Protonix) 40 Mg Tablet.dr 40 MG PO DAILY Pregabalin (Lyrica) 100 Mg Capsule 1 TAB PO TID Propranolol ER (Propranolol ER) 160 Mg Cap.sa.24h 160 MG PO BID Simvastatin (Simvastatin) 20 Mg Tablet 20 MG PO HS Tamsulosin (Flomax) 0.4 Mg Capsule 0.4 MG PO DAILY Tamsulosin (Flomax) 0.4 Mg Capsule 0.4 MG PO DAILY Zonisamide (Zonisamide) 100 Mg Capsule 100 MG PO HS Scheduled PRN Albuterol HFA (Proair HFA) 8.5 Gm Hfa.aer.ad 2 PUFFS INHALATION Q4H PRN PRN For Shortness of Breath Butalbital/Acetamin/Caff 50-300-40 mg (Fioricet 50-300-40 mg) 1 Each Capsule 1 CAPSULE PO Q4H PRN PRN Headache Epinephrine (Epinephrine) 0.3 Mg/0.3 Ml Auto.injct 0.3 MG IJ PRN For Anaphyllaxis Hydroxyzine Pamoate (Vistaril) 25 Mg Capsule 25 MG PO HS PRN PRN For Insomnia Ibuprofen (Ibuprofen) 800 Mg Tablet 800 MG PO TID PRN PRN For Pain Ketorolac Tromethamine (Ketorolac Tromethamine) 60 Mg/2 Ml Syringe 60 MG IM DAILY PRN PRN For Pain Lorazepam (Lorazepam) 0.5 Mg Tablet 0.5 MG PO BID PRN PRN For Anxiety Ondansetron ODT (Zofran ODT) 8 Mg Tablet 8 MG PO Q4H PRN PRN For Nausea Ondansetron ODT (Ondansetron ODT) 8 Mg Tab.rapdis 8 MG PO TID PRN PRN For Nausea Ondansetron ODT (Ondansetron ODT) 8 Mg Tab.rapdis 8 MG PO Q4H PRN PRN For Nausea Ondansetron ODT (Ondansetron ODT) 8 Mg Tab.rapdis 8 MG PO Q4H PRN PRN For Nausea Pramipexole Dihydrochloride (Pramipexole Dihydrochloride) 1 Mg Tablet 0.75 MG PO DAILY PRN PRN Restless leg Promethazine (Promethazine) 25 Mg Tablet 25 MG PO Q6H PRN PRN For Nausea hydrOXYzine Hcl (HydrOXYzine Hcl) 25 Mg Tablet 25-50 MG PO HS PRN PRN anxiety or insomina General Time Seen by MD: 09:30 Chief Complaint Migraine headache Hx Obtained From: Patient Arrived By: Walk-in Sudden in Onset?: Yes Onset Occurred: 3 days ago Symptom Duration: Since onset Recent Healthcare: No recent hospitalization, Recent doctor visit Similar Sx Previous: Yes Past Medical History Past Medical History Notes: (~25+ ED Visits to [facility] this year, Pateint seen 08/20 and 08/22, 08/26, and 09/04 for Flank pain - Neg CTx2 and U/ Sx2 for clear cause of pain, 1mm non-obstructing nephrolithiasis Frequent ER visits Dr. Hedrick, Neurology [facility], Psychiatric prescriber Past Medical History GERD Chronic depression Chronic migraines opioid Dependency and withdrawal headaches asthma Fibromyalgia Neuropathy 85% deaf Blind in right eye Morbid Obesity Spinal stenosis Anxiety Bipolar disorder Reports: Asthma, Cancer, Diabetes mellitus, Gastritis, Hypertension, Peptic ulcer disease Reports: Obesity Past Surgical History Cholecystectomy Appendectomy Hysterectomy Laparoscopy Tonsillectomy Cholecystectomy Sinus Multiple eye surgeries Colonoscopy Family History Reviewed, not relevant Smoking History Current Every Day Smoker Social History She reports recent graduation with Masters Counseling degree and successfully quit smoking. She has 4 grandchildren. Lives with son and his and their daughter Alcohol Use: Denies alcohol use Drug Use: Denies drug use Other Social History: Frequent ED visitor, , Local resident Occupation Student Ambulatory Status Cane Review of Systems Migraine Constitutional: Denies: Fever GI: Reports: Nausea, Vomiting Complete sys rev & neg: except as marked. Physical Exam Initial Vital Signs Vital Signs (First) Date Time Temp Pulse Resp B/P Pulse Ox O2 Delivery O2 Flow Rate FiO2 11/15/16 09:19 36.5 77 16 179/100 98 Room Air Initial VS: Reviewed ENT: Mucous membranes moist, Conjunctiva normal, No scleral icterus Respiratory: Breath sounds normal, Clear to auscultation, No respiratory distress Cardiovascular: Regular rate & rhythm, Heart sounds normal, Intact distal pulses Extremities: Vascular intact, Neuro intact, No swelling, No tenderness Skin: Warm, Dry, No cyanosis General/Constitutional: Awake, Alert Appearance / Presentation: Positive: Obese, Obese, morbidly Slightly anxious Head / Eyes: Atraumatic, Normocephalic Neck: Atraumatic, Supple, Full range of motion Neurologic: Oriented X3, Speech NL Interpretation & Diagnostics Lab Results Interpretation Test 11/15/16 10:16 Re-Eval/Medical Decision Med Decision/Clinical Course This is a 46-year-old female well-known to the emergency department who presents with a migraine. History of multiple to the presentations, slicing several days ago. She reports this is a typical migraine, no atypical features- but she reports she is under severe stress with family member with stage IV cancer hospitalized in [place], and other ill family member as well. Sleeping and a sense of increased anxiety as well. This been no trauma, no fevers chills or infectious symptoms. No neurologic symptoms. On exam she overall appears well. No focal deficits are evident. No red flags indicating need for neuro imaging or lumbar puncture. Patient received an IM dose of Toradol, oral Zofran, IM Phenergan and Benadryl, and oral dose of dexamethasone with resolution of her headache. I discussed trying some hydroxyzine for insomnia and anxiety, but also written for a few when necessary lorazepam, although it indicated this is not a good long-term medication. She will follow-up with her neurologist Dr. hedrick. She is improved following treatment and discharged in improved condition Source of Hx: Old records Differential Diagnosis: Positive: Headache, migraine, Negative: Carbon monoxide toxicity, Cerebellar ischemia, Cerebrovascular accident, Closed head injury, Headache, post LP, Hemorrhage, cerebellar, Hemorrhage, epidural, Hemorrhage, intracerebral, Hemorrhage, subarachnoid, Hemorrhage, subdural, Intracranial abscess, Meningitis, Sinusitis, Trigeminal neuralgia Counseled Regarding: Diagnosis, Lab results, Need for follow-up, When/why to return to ED Discharge & Departure Impression: Primary Impression: Migraine Migraine type: unspecified Status migrainosus presence: without status migrainosus Intractability: not intractable Qualified Code: G43.909 - Migraine, unspecified, not intractable, without status migrainosus Disposition: Home Discharge Condition All VS Reviewed: Yes Condition: Stable Additional Instructions: 1. Rest 2. Continue your regular medications. 3. You can take hydroxyzine 25mg 1-2 tabs at bedtime to help sleep or to help with anxiety (NOTE: Causes drowsiness) 4. If needed for severe anxiety you can take lorazepam 0.5mg up to twice a day - but use SPARINGLY. This medication is not a good mcfp medication. It too causes drowsiness. Referrals: Celina Card (PCP) Scribe Attestation Portions of this note were transcribed by Luis Daniel Sethi. I, Dr. Minor personally performed the history, physical exam and medical decision-making; I reviewed and confirmed the accuracy of the information in the transcribed note. copies to: Celina Card Matthew F MD Nov 15, 2016 10:56 Luis Daniel Sethi Nov 15, 2016 11:11
[2016-11-15] MEDS ORDERED: HYDR-656 PO (10:59)
[2016-11-15] MEDS ORDERED: LORA0.5T PO (10:59)
[2016-11-15 11:20] VITALS: BP 131/89; PULSE 82; RESP 20; O2SAT 98
== END 2016-11-15 11:21 | disposition home or self-care (01) ==
LOC: SED 09:09
DX: G43.909 Migraine, unspecified, not intractable, without status migrainosus (principal); E11.40 Type 2 diabetes mellitus with diabetic neuropathy, unspecified; K21.9 Gastro-esophageal reflux disease without esophagitis; I10 Essential (primary) hypertension; Z85.9 Personal history of malignant neoplasm, unspecified; F17.200 Nicotine dependence, unspecified, uncomplicated; Z90.710 Acquired absence of both cervix and uterus; Z79.84 Long term (current) use of oral hypoglycemic drugs; Z79.82 Long term (current) use of aspirin; Z88.1 Allergy status to other antibiotic agents; Z88.2 Allergy status to sulfonamides; Z88.8 Allergy status to other drugs, medicaments and biological substances; Z91.041 Radiographic dye allergy status
CPT/HCPCS: 81002; 81025; 96372; 99284; J1200; J1885; J2550

== ENCOUNTER 2016-11-19 01:05 | Emergency (ER) | payer OTHER ==
[~2016-11-19] VITALS: Ht 157.5 cm; Wt 116.4 kg
[~2016-11-19 01:05] MED LIST changes: +HYDR-656 PO; +LORA0.5T PO
[2016-11-19 01:16] VITALS: BP 148/86; PULSE 77; RESP 20; O2SAT 99
--- NOTE | 2016-11-19 01:20 | ED.REPORT ---
HPI-Headache Date of Service Nov 19, 2016 ED Provider: Dr. Last Pt is a 46 year old female with a hx of cancer, HTN, anxiety and DM presenting to the ED complaining of a headache and nausea onset at 1630 tonight. She states that she has been under a lot of stress in the past little while and that this headache feels similar to her usual migraines. Denies fever, chills, SOB, wheezing, vomiting or diarrhea. Nursing Notes Stated Complaint: MIGRAINE,NAUSEA,ANXIETY Chief Complaint: Headache Nursing Notes Reviewed: Yes Allergies: Coded Allergies: Contrast Media (Verified Allergy, Unknown, 09/27/16) Sulfa (Sulfonamide Antibiotics) (Verified Allergy, Unknown, 09/27/16) cephalexin (Verified Allergy, Unknown, 09/27/16) ciprofloxacin (Verified Allergy, Unknown, 09/27/16) dihydroergotamine mesylate (Verified Allergy, Unknown, 09/27/16) ether (Verified Allergy, Unknown, 09/27/16) iodine (Verified Allergy, Unknown, 09/27/16) prednisolone (Verified Allergy, Unknown, Causes Severe depression, 09/27/16) sumatriptan (Verified Allergy, Unknown, 09/27/16) Scheduled Aspirin Chew (Aspirin Chew) 81 Mg Chew 81 MG PO DAILY Clonidine (Clonidine) 0.2 Mg Tablet 0.4 MG PO BID Doxepin (Doxepin) 100 Mg Capsule 75 MG PO BID Duloxetine (Cymbalta) 30 Mg Capsule.dr 60 MG PO DAILY Hydrocortisone Valerate (Hydrocortisone Valerate) 15 Gm Cream..g. 1 GM TP BID Lamotrigine (Lamotrigine) 200 Mg Tablet 150 MG PO BID Lisinopril (Lisinopril) 20 Mg Tablet 20 MG PO DAILY Loratadine (Claritin) 10 Mg Capsule 10 MG PO DAILY Metformin (Metformin) 500 Mg Tablet 2,000 MG PO BID WITH EVENING MEAL Methocarbamol (Robaxin-750) 750 Mg Tablet 1,500 MG PO [id number] Nitrofurantoin Monohyd/M-Cryst (MacroBid) 100 Mg Capsule 100 MG PO BID Pantoprazole DR (Protonix) 40 Mg Tablet.dr 40 MG PO DAILY Pregabalin (Lyrica) 100 Mg Capsule 1 TAB PO TID Propranolol ER (Propranolol ER) 160 Mg Cap.sa.24h 160 MG PO BID Simvastatin (Simvastatin) 20 Mg Tablet 20 MG PO HS Tamsulosin (Flomax) 0.4 Mg Capsule 0.4 MG PO DAILY Tamsulosin (Flomax) 0.4 Mg Capsule 0.4 MG PO DAILY Zonisamide (Zonisamide) 100 Mg Capsule 100 MG PO HS Scheduled PRN Albuterol HFA (Proair HFA) 8.5 Gm Hfa.aer.ad 2 PUFFS INHALATION Q4H PRN PRN For Shortness of Breath Butalbital/Acetamin/Caff 50-300-40 mg (Fioricet 50-300-40 mg) 1 Each Capsule 1 CAPSULE PO Q4H PRN PRN Headache Epinephrine (Epinephrine) 0.3 Mg/0.3 Ml Auto.injct 0.3 MG IJ PRN For Anaphyllaxis Hydroxyzine Pamoate (Vistaril) 25 Mg Capsule 25 MG PO HS PRN PRN For Insomnia Ibuprofen (Ibuprofen) 800 Mg Tablet 800 MG PO TID PRN PRN For Pain Ketorolac Tromethamine (Ketorolac Tromethamine) 60 Mg/2 Ml Syringe 60 MG IM DAILY PRN PRN For Pain Lorazepam (Lorazepam) 0.5 Mg Tablet 0.5 MG PO BID PRN PRN For Anxiety Ondansetron ODT (Zofran ODT) 8 Mg Tablet 8 MG PO Q4H PRN PRN For Nausea Ondansetron ODT (Ondansetron ODT) 8 Mg Tab.rapdis 8 MG PO TID PRN PRN For Nausea Ondansetron ODT (Ondansetron ODT) 8 Mg Tab.rapdis 8 MG PO Q4H PRN PRN For Nausea Ondansetron ODT (Ondansetron ODT) 8 Mg Tab.rapdis 8 MG PO Q4H PRN PRN For Nausea Pramipexole Dihydrochloride (Pramipexole Dihydrochloride) 1 Mg Tablet 0.75 MG PO DAILY PRN PRN Restless leg Promethazine (Promethazine) 25 Mg Tablet 25 MG PO Q6H PRN PRN For Nausea hydrOXYzine Hcl (HydrOXYzine Hcl) 25 Mg Tablet 25-50 MG PO HS PRN PRN anxiety or insomina General Time Seen by MD: 01:19 Chief Complaint Migraine headache Hx Obtained From: Patient Arrived By: Walk-in Sudden in Onset?: No Onset Occurred: 9 - 12 hours ago Symptom Duration: Since onset Location: : Generalized Quality: Painful Severity: Current: Severe Severity: Maximum: Severe Recent Healthcare: No recent hospitalization, Recent doctor visit Similar Sx Previous: Yes Past Medical History Past Medical History Notes: (~25+ ED Visits to [facility] this year, Pateint seen 08/20 and 08/22, 08/26, and 09/04 for Flank pain - Neg CTx2 and U/ Sx2 for clear cause of pain, 1mm non-obstructing nephrolithiasis Frequent ER visits Dr. Meyers, Neurology [facility], Psychiatric prescriber Past Medical History GERD Chronic depression Chronic migraines opioid Dependency and withdrawal headaches asthma Fibromyalgia Neuropathy 85% deaf Blind in right eye Morbid Obesity Spinal stenosis Anxiety Bipolar disorder Reports: Asthma, Cancer, Diabetes mellitus, Gastritis, Hypertension, Peptic ulcer disease Reports: Obesity Past Surgical History Cholecystectomy Appendectomy Hysterectomy Laparoscopy Tonsillectomy Cholecystectomy Sinus Multiple eye surgeries Colonoscopy Family History Reviewed, not relevant Smoking History Current Every Day Smoker Social History She reports recent graduation with Masters Counseling degree and successfully quit smoking. She has 4 grandchildren. Lives with son and his and their daughter Alcohol Use: Denies alcohol use Drug Use: Denies drug use Other Social History: Frequent ED visitor, , Local resident Occupation Student Ambulatory Status Cane Review of Systems Constitutional: Denies: Chills, Fever GI: Reports: Nausea, Denies: Diarrhea, Vomiting Neurologic: Reports: Headache Complete sys rev & neg: except as marked. Respiratory: Denies: Shortness of breath, Wheezing Physical Exam Initial Vital Signs Vital Signs (First) Date Time Temp Pulse Resp B/P Pulse Ox O2 Delivery O2 Flow Rate FiO2 11/19/16 01:16 36.2 77 20 148/86 99 Room Air Initial VS: Reviewed ENT: Mucous membranes moist, Conjunctiva normal, No scleral icterus Respiratory: Breath sounds normal, Clear to auscultation, No respiratory distress Cardiovascular: Regular rate & rhythm, Heart sounds normal, Intact distal pulses Abdomen / GI: Soft, Non-tender, No guarding, No rebound, No distention Extremities: Vascular intact, Neuro intact, No swelling, No tenderness Skin: Warm, Dry, No cyanosis Psychiatric: Mood/affect normal, Behavior normal, Normal thought content General/Constitutional: Awake Speech slurred, appears sedated Head / Eyes: Atraumatic, Normocephalic, PERRL, EOMI Neck: Atraumatic, Supple, No meningismus Neurologic: Oriented X3, Speech NL, No motor deficits, No sensory deficits, CN II - XII intact, Cerebellar NL Interpretation & Diagnostics Lab Results Interpretation Test 11/19/16 01:45 Hold Purple Top Tube Received (Received) Hold Blue Top Tube Received (Received) Hold [place] Top Tube Received (Received) Re-Eval/Medical Decision Counseled Regarding: Diagnosis, Lab results, Need for follow-up, When/why to return to ED Discharge & Departure Impression: Primary Impression: Migraine headache Migraine type: unspecified Status migrainosus presence: without status migrainosus Intractability: not intractable Qualified Code: G43.909 - Migraine, unspecified, not intractable, without status migrainosus Disposition: Home Discharge Condition All VS Reviewed: Yes Condition: Improved Patient Instructions: Migraine Headache (ED) Additional Instructions: Your received IV saline and IV Toradol with good relief. Home to sleep. Referrals: Celina Card (PCP) Rodolfoibe Attestation Portions of this note were transcribed by Leona Campuzano. I, Dr. Last personally performed the history, physical exam and medical decision-making; I reviewed and confirmed the accuracy of the information in the transcribed note. Signed by: Deloris Damian, 11/19/2016. copies to: Celina Card Howard L MD Nov 19, 2016 01:20 LEONA CAMPUZANO Nov 19, 2016 01:33
[2016-11-19] MEDS ORDERED: 0.9% Sodium Chloride 1,000 ML IV ONE (01:31)
[2016-11-19] MEDS ORDERED: Ketorolac 15 mg/mL Inj IVPUSH ONE (01:35)
[2016-11-19] MEDS ORDERED: Ondansetron 2 mg/mL 2 mL Inj IVPUSH ONE (01:35)
[2016-11-19 05:09] VITALS: BP 144/82; PULSE 72; RESP 18; O2SAT 98
== END 2016-11-19 05:10 | disposition home or self-care (01) ==
LOC: SED 01:05
DX: G43.909 Migraine, unspecified, not intractable, without status migrainosus (principal); R11.0 Nausea; I10 Essential (primary) hypertension; F41.9 Anxiety disorder, unspecified; E11.40 Type 2 diabetes mellitus with diabetic neuropathy, unspecified; K21.9 Gastro-esophageal reflux disease without esophagitis; J45.909 Unspecified asthma, uncomplicated; F17.200 Nicotine dependence, unspecified, uncomplicated; Z91.041 Radiographic dye allergy status; Z88.2 Allergy status to sulfonamides; Z79.84 Long term (current) use of oral hypoglycemic drugs
CPT/HCPCS: 96361; 96374; 96375; 99284; J1885; J2405; J7030

== ENCOUNTER 2016-11-30 18:17 | Emergency (ER) | payer OTHER ==
[~2016-11-30] VITALS: Ht 157.5 cm; Wt 116.4 kg
[2016-11-30 18:34] VITALS: BP 144/77; PULSE 76; RESP 18; O2SAT 97
--- NOTE | 2016-11-30 20:01 | ED.REPORT ---
HPI-Headache Date of Service Nov 30, 2016 ED Provider: Darryn Morrison MD The pt is a 46 year old female with a history of chronic migraine headaches, anxiety, bipolar disorder, diabetes, hypertension, neuropathy and fibromyalgia who presents to the ED complaining of a headache. The pt began to experience a gradual onset migraine headache three days ago. This is described as a squeezing pain accompanied by photophobia and intermittent blurred vision. This is the usual presentation of her migraine headaches. The pt denies numbness, tingling, weakness or syncope. Nursing Notes Stated Complaint: MIGRAINE, NAUSEA, VOMITING, LIGHT HEADED Chief Complaint: Headache Nursing Notes Reviewed: Yes Allergies: Coded Allergies: Contrast Media (Verified Allergy, Unknown, 09/27/16) Sulfa (Sulfonamide Antibiotics) (Verified Allergy, Unknown, 09/27/16) cephalexin (Verified Allergy, Unknown, 09/27/16) ciprofloxacin (Verified Allergy, Unknown, 09/27/16) dihydroergotamine mesylate (Verified Allergy, Unknown, 09/27/16) ether (Verified Allergy, Unknown, 09/27/16) iodine (Verified Allergy, Unknown, 09/27/16) prednisolone (Verified Allergy, Unknown, Causes Severe depression, 09/27/16) sumatriptan (Verified Allergy, Unknown, 09/27/16) Scheduled Aspirin Chew (Aspirin Chew) 81 Mg Chew 81 MG PO DAILY Clonidine (Clonidine) 0.2 Mg Tablet 0.4 MG PO BID Doxepin (Doxepin) 100 Mg Capsule 75 MG PO BID Duloxetine (Cymbalta) 30 Mg Capsule.dr 60 MG PO DAILY Hydrocortisone Valerate (Hydrocortisone Valerate) 15 Gm Cream..g. 1 GM TP BID Lamotrigine (Lamotrigine) 200 Mg Tablet 150 MG PO BID Lisinopril (Lisinopril) 20 Mg Tablet 20 MG PO DAILY Loratadine (Claritin) 10 Mg Capsule 10 MG PO DAILY Metformin (Metformin) 500 Mg Tablet 2,000 MG PO BID WITH EVENING MEAL Methocarbamol (Robaxin-750) 750 Mg Tablet 1,500 MG PO [id number] Nitrofurantoin Monohyd/M-Cryst (MacroBid) 100 Mg Capsule 100 MG PO BID Pantoprazole DR (Protonix) 40 Mg Tablet.dr 40 MG PO DAILY Pregabalin (Lyrica) 100 Mg Capsule 1 TAB PO TID Propranolol ER (Propranolol ER) 160 Mg Cap.sa.24h 160 MG PO BID Simvastatin (Simvastatin) 20 Mg Tablet 20 MG PO HS Tamsulosin (Flomax) 0.4 Mg Capsule 0.4 MG PO DAILY Tamsulosin (Flomax) 0.4 Mg Capsule 0.4 MG PO DAILY Zonisamide (Zonisamide) 100 Mg Capsule 100 MG PO HS Scheduled PRN Albuterol HFA (Proair HFA) 8.5 Gm Hfa.aer.ad 2 PUFFS INHALATION Q4H PRN PRN For Shortness of Breath Butalbital/Acetamin/Caff 50-300-40 mg (Fioricet 50-300-40 mg) 1 Each Capsule 1 CAPSULE PO Q4H PRN PRN Headache Epinephrine (Epinephrine) 0.3 Mg/0.3 Ml Auto.injct 0.3 MG IJ PRN For Anaphyllaxis Hydroxyzine Pamoate (Vistaril) 25 Mg Capsule 25 MG PO HS PRN PRN For Insomnia Ibuprofen (Ibuprofen) 800 Mg Tablet 800 MG PO TID PRN PRN For Pain Ketorolac Tromethamine (Ketorolac Tromethamine) 60 Mg/2 Ml Syringe 60 MG IM DAILY PRN PRN For Pain Lorazepam (Lorazepam) 0.5 Mg Tablet 0.5 MG PO BID PRN PRN For Anxiety Ondansetron ODT (Zofran ODT) 8 Mg Tablet 8 MG PO Q4H PRN PRN For Nausea Ondansetron ODT (Ondansetron ODT) 8 Mg Tab.rapdis 8 MG PO TID PRN PRN For Nausea Ondansetron ODT (Ondansetron ODT) 8 Mg Tab.rapdis 8 MG PO Q4H PRN PRN For Nausea Ondansetron ODT (Ondansetron ODT) 8 Mg Tab.rapdis 8 MG PO Q4H PRN PRN For Nausea Pramipexole Dihydrochloride (Pramipexole Dihydrochloride) 1 Mg Tablet 0.75 MG PO DAILY PRN PRN Restless leg Promethazine (Promethazine) 25 Mg Tablet 25 MG PO Q6H PRN PRN For Nausea hydrOXYzine Hcl (HydrOXYzine Hcl) 25 Mg Tablet 25-50 MG PO HS PRN PRN anxiety or insomina General Time Seen by MD: 20:00 Chief Complaint Migraine headache Hx Obtained From: Patient Arrived By: Walk-in Sudden in Onset?: No Onset Occurred: 3 days ago Symptom Duration: Since onset Recent Healthcare: Recent doctor visit Similar Sx Previous: Yes Past Medical History Past Medical History Notes: (~26+ ED Visits to [facility] this year, Pateint seen 08/20 and 08/22, 08/26, and 09/04 for Flank pain - Neg CTx2 and U/ Sx2 for clear cause of pain, 1mm non-obstructing nephrolithiasis Frequent ER visits Dr. Meyers, Neurology [facility], Psychiatric prescriber Past Medical History GERD Chronic depression Chronic migraines opioid Dependency and withdrawal headaches asthma Fibromyalgia Neuropathy 85% deaf Blind in right eye Morbid Obesity Spinal stenosis Anxiety Bipolar disorder Reports: Asthma, Cancer, Diabetes mellitus, Gastritis, Hypertension, Peptic ulcer disease Reports: Obesity Past Surgical History Cholecystectomy Appendectomy Hysterectomy Laparoscopy Tonsillectomy Cholecystectomy Sinus Multiple eye surgeries Colonoscopy Family History Reviewed, not relevant Smoking History Current Every Day Smoker Social History She reports recent graduation with Masters Counseling degree and successfully quit smoking. She has 4 grandchildren. Lives with son and his and their daughter Alcohol Use: Denies alcohol use Drug Use: Denies drug use Other Social History: Frequent ED visitor, , Local resident Occupation Student Ambulatory Status Cane Review of Systems Constitutional: Denies: Fever Eyes: Reports: Blurred bilateral, Photophobia GI: Denies: Abdominal pain, Nausea, Vomiting Musculoskeletal: Denies: Back pain, Neck pain Skin: Denies Rash Neurologic: Reports: Headache, Denies: Numbness, Syncope, Weakness Complete sys rev & neg: except as marked. Physical Exam Initial Vital Signs Vital Signs (First) Date Time Temp Pulse Resp B/P Pulse Ox O2 Delivery O2 Flow Rate FiO2 11/30/16 18:34 36.2 76 18 144/77 97 Room Air Initial VS: Reviewed General/Constitutional: Awake, Alert answering questions appropriately speaking in full sentences Head / Eyes: Atraumatic, Normocephalic, PERRL, EOMI Neck: Atraumatic, Supple, No meningismus, Full range of motion Neurologic: Oriented X3, Speech NL, No motor deficits, No sensory deficits, CN II - XII intact no pronator drift strength equal in bilateral upper extremities ENT: Atraumatic, Airway patent, Mucous membranes moist Respiratory / Chest: Atraumatic, Breath sounds NL, Breath sounds = bilat, No respiratory distress Cardiovascular: Heart rate NL, Regular rhythm, Heart sounds NL Abdomen: Atraumatic, Soft, Non-tender Skin: Atraumatic, Color NL, No rash, Warm, Dry Psychiatric: Affect NL, Mood NL Back: Atraumatic, Full range of motion Upper Extremity / MS: Atraumatic, Full range of motion Lower Extremity / Pelvis / MS: Atraumatic, Full range of motion Re-Eval/Medical Decision Med Decision/Clinical Course In summary, the patient is a 46-year-old female with past medical history significant for recurrent migraine headaches, who presents with headache that is similar in nature to previous migraines. Our primary and secondary assessment reveals an awake, alert patient in no acute distress. Hemodynamically stable and afebrile. Exam reveals normal neurologic exam. Suspect the patient's headache represents a migraine or tension type headache. Considered other causes of headache to include: Subdural hemorrhage, subarachnoid hemorrhage, [employer] tumor, meningitis, encephalitis, venous sinus thrombosis, dissection, temporal arteritis, intracranial hypertension ( psuedotumor cerebri), sinusitis or cervicalgia, although these are less likely based on the history, exam, lab, and radiographic findings as noted above. Based on this, I feel that imaging would be low yield and is not warranted at this time. Discussed the risks and benefits of this with the patient who is in agreement. Also discussed with the patient at length that if symptoms change, worsen, or persist, should return to the ER for reevaluation. They understand and agree with the plan. Given the patient's workup, feel they are safe for discharge. The patient was given the below medications for symptom control. 1 liter of IV fluids, Toradol, Reglan, Benadryl given in ED. Patient reported dramatic improvement in her symptoms. Prior to discharge follow-up and return precautions were reviewed in detail with the patient who verbalized understanding and agreement with the plan. The patient was discharged in stable condition. Source of Hx: Old records Re-Evaluation/Progress : Time of Eval: 21:02 )( Patient Status: Condition improved Re-Evaluation/Progress Note: Pt rechecked, whose condition has improved. The diagnosis and plan for discharge are discussed. The pt understands and agrees with the plan. All questions are addressed at this time. Counseled Regarding: Diagnosis, Lab results, Need for follow-up, When/why to return to ED Discharge & Departure Impression: Primary Impression: Migraine Migraine type: unspecified Status migrainosus presence: with status migrainosus Intractability: not intractable Qualified Code: G43.901 - Migraine, unspecified, not intractable, with status migrainosus Additional Impression: History of migraine headaches Disposition: Home Discharge Condition All VS Reviewed: Yes Condition: Stable Patient Instructions: Migraine Headache (ED) Additional Instructions: Thank you for seeking care at the emergency room. Our primary goal today in the Emergency Department was to evaluate you for any life-threatening conditions. Your evaluation was reassuring. You should follow-up with your primary doctor in the next week. You should return to the Emergency Department immediately if you develop fevers , chills, confusion, worsening headache, chest pain, lightheadedness, weakness or any other concerning signs or symptoms. Thank you for letting us partake in your care today. Referrals: Celina Card (PCP) Scribe Attestation Portions of this note were transcribed by Jalyn Rios. I, Dr. Morrison personally performed the history, physical exam and medical decision-making; I reviewed and confirmed the accuracy of the information in the transcribed note. copies to: Celina Card Beck O MD Nov 30, 2016 20:01 JALYN RIOS Nov 30, 2016 20:08
[2016-11-30] MEDS ORDERED: 0.9% Sodium Chloride 1,000 ML IV ONE (20:02)
[2016-11-30] MEDS ORDERED: MetoCLOpramide 5 mg/mL 2 mL Inj IVPUSH ONE (20:05)
[2016-11-30 22:25] VITALS: BP 146/92; PULSE 69; RESP 15; O2SAT 97
== END 2016-11-30 22:20 | disposition home or self-care (01) ==
LOC: SED 18:17
DX: G43.901 Migraine, unspecified, not intractable, with status migrainosus (principal); I10 Essential (primary) hypertension; F41.9 Anxiety disorder, unspecified; E11.40 Type 2 diabetes mellitus with diabetic neuropathy, unspecified; J45.909 Unspecified asthma, uncomplicated; K21.9 Gastro-esophageal reflux disease without esophagitis; F11.20 Opioid dependence, uncomplicated; Z90.89 Acquired absence of other organs; Z90.49 Acquired absence of other specified parts of digestive tract; Z85.9 Personal history of malignant neoplasm, unspecified; Z79.51 Long term (current) use of inhaled steroids; Z79.84 Long term (current) use of oral hypoglycemic drugs; Z88.2 Allergy status to sulfonamides; Z88.1 Allergy status to other antibiotic agents; Z88.8 Allergy status to other drugs, medicaments and biological substances; F17.200 Nicotine dependence, unspecified, uncomplicated
CPT/HCPCS: 96361; 96374; 96375; 99284; J1200; J1885; J2765; J7030

== ENCOUNTER 2016-12-14 04:04 | Emergency (ER) | payer OTHER ==
[~2016-12-14] VITALS: Ht 157.5 cm; Wt 116.4 kg
[2016-12-14 04:09] VITALS: BP 165/97; PULSE 71; RESP 20; O2SAT 100
[2016-12-14] MEDS ORDERED: 0.9% Sodium Chloride 1,000 ML IV ONE (04:27)
[2016-12-14] MEDS ORDERED: Ondansetron 2 mg/mL 2 mL Inj IVPUSH ONE (04:30)
[2016-12-14] MEDS ORDERED: Ketorolac 15 mg/mL Inj IVPUSH ONE (04:30)
[2016-12-14] MEDS ORDERED: Haloperidol 5 mg/mL Inj IVPUSH ONE (05:25)
--- NOTE | 2016-12-14 05:27 | ED.REPORT ---
HPI-Psychiatric Illness Date of Service Dec 14, 2016 ED Provider: Praneeth Last MD The pt is a 46 y/o female w/ a hx of HTN, depression, asthma, obesity, and multiple other chronic conditions presenting to the ED due to an anxiety attack. The pt reports deep breathing and Hydroxyzine helping but she does not have any at home. Denies suicidal ideations. The pt reports her mother dying of cancer, her niece getting in a car accident, and her cat dying which are cottributing to her stress. Nursing Notes Stated Complaint: MIGRAINE,NAUSEA,VOMITING Chief Complaint: Anxiety attack Nursing Notes Reviewed: Yes Allergies: Coded Allergies: Contrast Media (Verified Allergy, Unknown, 12/14/16) Sulfa (Sulfonamide Antibiotics) (Verified Allergy, Unknown, 12/14/16) cephalexin (Verified Allergy, Unknown, 12/14/16) ciprofloxacin (Verified Allergy, Unknown, 12/14/16) dihydroergotamine mesylate (Verified Allergy, Unknown, 12/14/16) ether (Verified Allergy, Unknown, 12/14/16) iodine (Verified Allergy, Unknown, 12/14/16) prednisolone (Verified Allergy, Unknown, Causes Severe depression, 12/14/16 ) sumatriptan (Verified Allergy, Unknown, 12/14/16) Scheduled Aspirin Chew (Aspirin Chew) 81 Mg Chew 81 MG PO DAILY Clonidine (Clonidine) 0.2 Mg Tablet 0.4 MG PO BID Doxepin (Doxepin) 100 Mg Capsule 75 MG PO BID Duloxetine (Cymbalta) 30 Mg Capsule.dr 60 MG PO DAILY Hydrocortisone Valerate (Hydrocortisone Valerate) 15 Gm Cream..g. 1 GM TP BID Lamotrigine (Lamotrigine) 200 Mg Tablet 150 MG PO BID Lisinopril (Lisinopril) 20 Mg Tablet 20 MG PO DAILY Loratadine (Claritin) 10 Mg Capsule 10 MG PO DAILY Metformin (Metformin) 500 Mg Tablet 2,000 MG PO BID WITH EVENING MEAL Methocarbamol (Robaxin-750) 750 Mg Tablet 1,500 MG PO [id number] Nitrofurantoin Monohyd/M-Cryst (MacroBid) 100 Mg Capsule 100 MG PO BID Pantoprazole DR (Protonix) 40 Mg Tablet.dr 40 MG PO DAILY Pregabalin (Lyrica) 100 Mg Capsule 1 TAB PO TID Propranolol ER (Propranolol ER) 160 Mg Cap.sa.24h 160 MG PO BID Simvastatin (Simvastatin) 20 Mg Tablet 20 MG PO HS Tamsulosin (Flomax) 0.4 Mg Capsule 0.4 MG PO DAILY Tamsulosin (Flomax) 0.4 Mg Capsule 0.4 MG PO DAILY Zonisamide (Zonisamide) 100 Mg Capsule 100 MG PO HS Scheduled PRN Albuterol HFA (Proair HFA) 8.5 Gm Hfa.aer.ad 2 PUFFS INHALATION Q4H PRN PRN For Shortness of Breath Butalbital/Acetamin/Caff 50-300-40 mg (Fioricet 50-300-40 mg) 1 Each Capsule 1 CAPSULE PO Q4H PRN PRN Headache Epinephrine (Epinephrine) 0.3 Mg/0.3 Ml Auto.injct 0.3 MG IJ PRN For Anaphyllaxis Hydroxyzine Pamoate (Vistaril) 25 Mg Capsule 25 MG PO HS PRN PRN For Insomnia Ibuprofen (Ibuprofen) 800 Mg Tablet 800 MG PO TID PRN PRN For Pain Ketorolac Tromethamine (Ketorolac Tromethamine) 60 Mg/2 Ml Syringe 60 MG IM DAILY PRN PRN For Pain Lorazepam (Lorazepam) 0.5 Mg Tablet 0.5 MG PO BID PRN PRN For Anxiety Ondansetron ODT (Zofran ODT) 8 Mg Tablet 8 MG PO Q4H PRN PRN For Nausea Ondansetron ODT (Ondansetron ODT) 8 Mg Tab.rapdis 8 MG PO TID PRN PRN For Nausea Ondansetron ODT (Ondansetron ODT) 8 Mg Tab.rapdis 8 MG PO Q4H PRN PRN For Nausea Ondansetron ODT (Ondansetron ODT) 8 Mg Tab.rapdis 8 MG PO Q4H PRN PRN For Nausea Pramipexole Dihydrochloride (Pramipexole Dihydrochloride) 1 Mg Tablet 0.75 MG PO DAILY PRN PRN Restless leg Promethazine (Promethazine) 25 Mg Tablet 25 MG PO Q6H PRN PRN For Nausea hydrOXYzine Hcl (HydrOXYzine Hcl) 25 Mg Tablet 25-50 MG PO HS PRN PRN anxiety or insomina General Time Seen by MD: 04:26 Chief Complaint Other (Anxiety attack ) Hx Obtained From: Patient Arrived By: Walk-in Onset Occurred: Just prior to arrival Symptom Duration: Since onset Recent Healthcare: No recent hospitalization, Recent doctor visit Similar Sx Previous: Yes Risk-Psychiatric Illness Suicide Risk Stratification RF Statements: No risk factors Past Medical History Past Medical History Notes: (~25+ ED Visits to [facility] this year, Pateint seen 08/20 and 08/22, 08/26, and 09/04 for Flank pain - Neg CTx2 and U/ Sx2 for clear cause of pain, 1mm non-obstructing nephrolithiasis Frequent ER visits Dr. Meyers, Neurology [facility], Psychiatric prescriber Past Medical History GERD Chronic depression Chronic migraines opioid Dependency and withdrawal headaches asthma Fibromyalgia Neuropathy 85% deaf Blind in right eye Morbid Obesity Spinal stenosis Anxiety Bipolar disorder Reports: Asthma, Cancer, Diabetes mellitus, Gastritis, Hypertension, Peptic ulcer disease Reports: Obesity Past Surgical History Cholecystectomy Appendectomy Hysterectomy Laparoscopy Tonsillectomy Cholecystectomy Sinus Multiple eye surgeries Colonoscopy Family History Reviewed, not relevant Smoking History Current Every Day Smoker Social History She reports recent graduation with Masters Counseling degree and successfully quit smoking. She has 4 grandchildren. Lives with son and his and their daughter Alcohol Use: Denies alcohol use Drug Use: Denies drug use Other Social History: Frequent ED visitor, , Local resident Occupation Student Ambulatory Status Cane Review of Systems Psychiatric: Reports: Anxiety (attack), Stress, Denies: Suicidal ideation Complete sys rev & neg: except as marked. Physical Exam Initial Vital Signs Vital Signs (First) Date Time Temp Pulse Resp B/P Pulse Ox O2 Delivery O2 Flow Rate FiO2 12/14/16 04:09 36.5 71 20 165/97 100 Room Air Initial VS: Reviewed, Vital signs normal Head / Eyes: Atraumatic, Normocephalic, PERRL ENT: Mucous membranes moist, Conjunctiva normal, No scleral icterus Neck: Supple, Non-tender, Full range of motion Respiratory: Breath sounds normal, Clear to auscultation, No respiratory distress Cardiovascular: Regular rate & rhythm, Heart sounds normal, Intact distal pulses Extremities: Vascular intact, Neuro intact, No swelling, No tenderness General/Constitutional: Awake, Alert Appearance / Presentation: Positive: Obese, morbidly Sedated Neurologic: Oriented X3 Psychiatric: Not suicidal Skin: No rash, Warm, Dry, Intact Vesicles on L chin; Re-Eval/Medical Decision Med Decision/Clinical Course 36-year-old female who has trouble sleeping mostly because of stress related headaches. She has a lot of new stressors in her life. She was given IV normal saline, IV Toradol, IV, ondansetron, IV Haldol, and IV Benadryl with good relief. She will be discharged home. Source of Hx: Old records Counseled Regarding: Diagnosis, Need for follow-up, When/why to return to ED Discharge & Departure Impression: Primary Impression: Migraine headache Migraine type: unspecified Status migrainosus presence: without status migrainosus Intractability: not intractable Qualified Code: G43.909 - Migraine, unspecified, not intractable, without status migrainosus Additional Impression: Stress at home )( Condition at Discharge: No danger to self, No danger to others, No suicidal ideation, No homicidal ideation Disposition: Home Discharge Condition All VS Reviewed: Yes Condition: Stable Patient Instructions: Stress (ED) Additional Instructions: You received IV saline, Toradol, ondansetron, Haldol, and Benadryl with good relief. Home to rest. Follow-up with your primary provider. Continue to work on dealing with stressors. Referrals: Celina Card (PCP) Scribe Attestation Portions of this note were transcribed by Luis Daniel Sethi. I, Dr. Last personally performed the history, physical exam and medical decision-making; I reviewed and confirmed the accuracy of the information in the transcribed note. copies to: Celina Card Howard L MD Dec 14, 2016 05:26 Luis Daniel Sethi Dec 14, 2016 05:36
[2016-12-14 05:38] VITALS: O2SAT 100
[2016-12-14 06:42] VITALS: BP 128/47; PULSE 70; RESP 18; O2SAT 97
== END 2016-12-14 06:44 | disposition home or self-care (01) ==
LOC: SED 04:04
DX: G43.909 Migraine, unspecified, not intractable, without status migrainosus (principal); F43.9 Reaction to severe stress, unspecified; I10 Essential (primary) hypertension; K21.9 Gastro-esophageal reflux disease without esophagitis; J45.909 Unspecified asthma, uncomplicated; E66.01 Morbid (severe) obesity due to excess calories; F31.9 Bipolar disorder, unspecified; E11.40 Type 2 diabetes mellitus with diabetic neuropathy, unspecified; F41.8 Other specified anxiety disorders; F17.200 Nicotine dependence, unspecified, uncomplicated; Z68.42 Body mass index [BMI] 45.0-49.9, adult; Z79.82 Long term (current) use of aspirin; Z79.84 Long term (current) use of oral hypoglycemic drugs; Z88.2 Allergy status to sulfonamides; Z88.1 Allergy status to other antibiotic agents; Z88.8 Allergy status to other drugs, medicaments and biological substances; Z91.041 Radiographic dye allergy status
CPT/HCPCS: 96361; 96374; 96375; 99284; J1200; J1630; J1885; J2405; J7030

== ENCOUNTER 2016-12-25 04:56 | Emergency (ER) | payer OTHER ==
[~2016-12-25] VITALS: Ht 157.5 cm; Wt 116.4 kg
[2016-12-25 05:04] VITALS: BP 159/89; PULSE 71; RESP 16; O2SAT 100
--- NOTE | 2016-12-25 06:06 | ED.REPORT ---
HPI-Headache Date of Service Dec 25, 2016 ED Provider: Mateo Berg MD Pt is a 46 year old female with a hx of chronic migraines who presents to the ED complaining of a migraine headache onset 1800 last night. Associated symptoms include nausea. She denies fever, neck pain, numbness, weakness, tingling, bowel or bladder incontinence, or any other symptoms Pt has tried taking ibuprofen, Benadryl, and Tylenol at 1800 without relief. She also took Fioricet at 0400 this morning. Pt reports this is not different than her previous migraines. Nursing Notes Stated Complaint: HEADACHE/ NAUSEA Chief Complaint: Headache Nursing Notes Reviewed: Yes Allergies: Coded Allergies: Contrast Media (Verified Allergy, Unknown, 12/25/16) Sulfa (Sulfonamide Antibiotics) (Verified Allergy, Unknown, 12/25/16) cephalexin (Verified Allergy, Unknown, 12/25/16) ciprofloxacin (Verified Allergy, Unknown, 12/25/16) dihydroergotamine mesylate (Verified Allergy, Unknown, 12/25/16) ether (Verified Allergy, Unknown, 12/25/16) iodine (Verified Allergy, Unknown, 12/25/16) prednisolone (Verified Allergy, Unknown, Causes Severe depression, 12/25/16 ) sumatriptan (Verified Allergy, Unknown, 12/25/16) Scheduled Aspirin Chew (Aspirin Chew) 81 Mg Chew 81 MG PO DAILY Clonidine (Clonidine) 0.2 Mg Tablet 0.4 MG PO BID Doxepin (Doxepin) 100 Mg Capsule 75 MG PO BID Duloxetine (Cymbalta) 30 Mg Capsule.dr 60 MG PO DAILY Hydrocortisone Valerate (Hydrocortisone Valerate) 15 Gm Cream..g. 1 GM TP BID Lamotrigine (Lamotrigine) 200 Mg Tablet 150 MG PO BID Lisinopril (Lisinopril) 20 Mg Tablet 20 MG PO DAILY Loratadine (Claritin) 10 Mg Capsule 10 MG PO DAILY Metformin (Metformin) 500 Mg Tablet 2,000 MG PO BID WITH EVENING MEAL Methocarbamol (Robaxin-750) 750 Mg Tablet 1,500 MG PO d0lfxue Nitrofurantoin Monohyd/M-Cryst (MacroBid) 100 Mg Capsule 100 MG PO BID Pantoprazole DR (Protonix) 40 Mg Tablet.dr 40 MG PO DAILY Pregabalin (Lyrica) 100 Mg Capsule 1 TAB PO TID Propranolol ER (Propranolol ER) 160 Mg Cap.sa.24h 160 MG PO BID Simvastatin (Simvastatin) 20 Mg Tablet 20 MG PO HS Tamsulosin (Flomax) 0.4 Mg Capsule 0.4 MG PO DAILY Tamsulosin (Flomax) 0.4 Mg Capsule 0.4 MG PO DAILY Zonisamide (Zonisamide) 100 Mg Capsule 100 MG PO HS Scheduled PRN Albuterol HFA (Proair HFA) 8.5 Gm Hfa.aer.ad 2 PUFFS INHALATION Q4H PRN PRN For Shortness of Breath Butalbital/Acetamin/Caff 50-300-40 mg (Fioricet 50-300-40 mg) 1 Each Capsule 1 CAPSULE PO Q4H PRN PRN Headache Epinephrine (Epinephrine) 0.3 Mg/0.3 Ml Auto.injct 0.3 MG IJ PRN For Anaphyllaxis Hydroxyzine Pamoate (Vistaril) 25 Mg Capsule 25 MG PO HS PRN PRN For Insomnia Ibuprofen (Ibuprofen) 800 Mg Tablet 800 MG PO TID PRN PRN For Pain Ketorolac Tromethamine (Ketorolac Tromethamine) 60 Mg/2 Ml Syringe 60 MG IM DAILY PRN PRN For Pain Lorazepam (Lorazepam) 0.5 Mg Tablet 0.5 MG PO BID PRN PRN For Anxiety Ondansetron ODT (Zofran ODT) 8 Mg Tablet 8 MG PO Q4H PRN PRN For Nausea Ondansetron ODT (Ondansetron ODT) 8 Mg Tab.rapdis 8 MG PO TID PRN PRN For Nausea Ondansetron ODT (Ondansetron ODT) 8 Mg Tab.rapdis 8 MG PO Q4H PRN PRN For Nausea Ondansetron ODT (Ondansetron ODT) 8 Mg Tab.rapdis 8 MG PO Q4H PRN PRN For Nausea Pramipexole Dihydrochloride (Pramipexole Dihydrochloride) 1 Mg Tablet 0.75 MG PO DAILY PRN PRN Restless leg Promethazine (Promethazine) 25 Mg Tablet 25 MG PO Q6H PRN PRN For Nausea hydrOXYzine Hcl (HydrOXYzine Hcl) 25 Mg Tablet 25-50 MG PO HS PRN PRN anxiety or insomina General Time Seen by MD: 06:04 Chief Complaint Migraine headache Hx Obtained From: Patient Arrived By: Walk-in Sudden in Onset?: Yes Onset Occurred: Yesterday Symptom Duration: Since onset Quality: Same as prior, Painful Recent Healthcare: Recent doctor visit Similar Sx Previous: Yes Risk-Headache )( SAH Risk Stratification Hypertension RF Statements: Risk factors reviewed )( IC Mass Risk Stratification No HIV RF Statements: Risk factors reviewed Past Medical History Past Medical History Notes: (~26+ ED Visits to [facility] this year, Pateint seen 08/20 and 08/22, 08/26, and 09/04 for Flank pain - Neg CTx2 and U/ Sx2 for clear cause of pain, 1mm non-obstructing nephrolithiasis Frequent ER visits Dr. Meyers, Neurology [facility], Psychiatric prescriber Past Medical History GERD Chronic depression Chronic migraines opioid Dependency and withdrawal headaches asthma Fibromyalgia Neuropathy 85% deaf Blind in right eye Morbid Obesity Spinal stenosis Anxiety Bipolar disorder Reports: Asthma, Cancer (throat and uterine ), Diabetes mellitus, Gastritis, Hypertension, Peptic ulcer disease Reports: Obesity Past Surgical History Cholecystectomy Appendectomy Hysterectomy Laparoscopy Tonsillectomy Cholecystectomy Sinus Multiple eye surgeries Colonoscopy Lumpectomy Family History Reviewed, not relevant Smoking History Former Smoker Social History She reports recent graduation with Masters Counseling degree and successfully quit smoking. She has 4 grandchildren. Lives with son and his and their daughter Alcohol Use: Denies alcohol use Drug Use: Denies drug use Other Social History: Frequent ED visitor, , Local resident Occupation Student Ambulatory Status Cane Review of Systems Review of Systems Note: -tingling Constitutional: Denies: Fever GI: Reports: Nausea Musculoskeletal: Denies: Neck pain Neurologic: Reports: Headache, Denies: Bladder dysfunction, Bowel dysfunction, Focal weakness, Numbness Complete sys rev & neg: except as marked. Female: Denies: Incontinence Physical Exam Initial Vital Signs Vital Signs (First) Date Time Temp Pulse Resp B/P Pulse Ox O2 Delivery O2 Flow Rate FiO2 12/25/16 05:04 36.1 71 16 159/89 100 Room Air Initial VS: Reviewed, Vital signs abnormal Respiratory: No respiratory distress Cardiovascular: Regular rate & rhythm Extremities: Vascular intact, Neuro intact Skin: Warm, Dry Psychiatric: Mood/affect normal, Behavior normal, Normal thought content General/Constitutional: Awake, Alert Appearance / Presentation: Positive: Obese Head / Eyes: Atraumatic, Normocephalic Neck: Atraumatic, Supple, Full range of motion Neurologic: Oriented X3, Speech NL, No motor deficits, No sensory deficits Re-Eval/Medical Decision Re-Evaluation/Progress : Time of Eval: 07:26 Re-Evaluation/Progress Note: Rechecked pt who reports she is feeling much better and would like to go home. Discussed plan for discharge. Patient understands and agrees with plan. All questions addressed at this time. Counseled Regarding: Diagnosis, Need for follow-up, When/why to return to ED Discharge & Departure Impression: Primary Impression: Migraine Migraine type: unspecified Status migrainosus presence: without status migrainosus Intractability: not intractable Qualified Code: G43.909 - Migraine, unspecified, not intractable, without status migrainosus Disposition: Home Discharge Condition All VS Reviewed: Yes Condition: Stable Patient Instructions: Migraine Headache (ED) Additional Instructions: No dangerous cause for your headache is discovered today. I suspect this was a migraine headache. I recommend that you go home and sleep. If the headache persists, call your doctor. Referrals: Celina Card (PCP) Rodolfoibestela Attestation Portions of this note were transcribed by Jason Cordoba. I, Dr. Berg personally performed the history, physical exam and medical decision-making; I reviewed and confirmed the accuracy of the information in the transcribed note. Signed by: Deloris Benedict, 12/25/16 copies to: Celina Card Kirk H MD Dec 25, 2016 06:06 JASON CORDOBA Dec 25, 2016 06:14
[2016-12-25] MEDS ORDERED: Haloperidol 5 mg/mL Inj IM ONE (06:10)
[2016-12-25] MEDS ORDERED: Ondansetron 8 mg ODT Tablet PO ONE (06:10)
[2016-12-25 07:42] VITALS: BP 155/86; PULSE 69; RESP 14; O2SAT 100
== END 2016-12-25 07:43 | disposition home or self-care (01) ==
LOC: SED 04:56
DX: G43.909 Migraine, unspecified, not intractable, without status migrainosus (principal); I10 Essential (primary) hypertension; E11.40 Type 2 diabetes mellitus with diabetic neuropathy, unspecified; K21.9 Gastro-esophageal reflux disease without esophagitis; Z90.710 Acquired absence of both cervix and uterus; Z87.891 Personal history of nicotine dependence; Z79.82 Long term (current) use of aspirin; Z79.84 Long term (current) use of oral hypoglycemic drugs; Z88.1 Allergy status to other antibiotic agents; Z88.2 Allergy status to sulfonamides; Z88.8 Allergy status to other drugs, medicaments and biological substances; Z91.041 Radiographic dye allergy status
CPT/HCPCS: 96372; 99284; J1200; J1630; J1885